=== PATIENT | male | born 1940 | race Caucasian/White ===

== ENCOUNTER 2019-08-24 10:48 | Outpatient (CLI) | payer MEDICARE, SELFPAY ==
--- NOTE | 2019-08-24 | XRR_ITS ---
PROCEDURE INFORMATION: Exam: XR Right Shoulder Exam date and time: 08/24/2019 12:16 PM Age: 78 years old Clinical indication: Injury or trauma; Initial encounter; Blunt trauma (contusions or hematomas; Right; Patient HX: C/O R shoulder pain after fall yesterday TECHNIQUE: Imaging protocol: XR Right shoulder. Views: 2 or more views. COMPARISON: No relevant prior studies available. FINDINGS: Bones/joints: Mild thoracic spondylosis. Mild dextroscoliosis. Possible humeral neck fracture noted only on the scapular Y-view. CT may be helpful if pain persist for confirmation. Possible fracture through the inferior blade of the scapula. Soft tissues: Normal. XR/XR shoulder RT min 2V* [id number] IMPRESSION: 1. Possible humeral neck fracture noted only on the scapular Y-view. CT may be helpful if pain persist for confirmation. 2. Possible fracture through the inferior blade of the scapula.
== END 2019-08-24 10:49 | disposition home or self-care (01) ==
PROVIDERS: Visit Provider Nurse Practitioner Family
DX: M79.601 Pain in right arm (principal); M25.511 Pain in right shoulder
CPT/HCPCS: 73030

== ENCOUNTER 2020-12-09 15:25 | Emergency (ER) | payer MEDICARE, SELFPAY ==
[2020-12-09 15:52] VITALS: BP 161/78; PULSE 75; RESP 18; TEMP 36.6; O2SAT 94; BMI 40.5
--- NOTE | 2020-12-09 16:50 | XRR_ITS ---
PROCEDURE INFORMATION: Exam: XR Left Shoulder Exam date and time: 12/09/2020 4:50 PM Age: 79 years old Clinical indication: Pain; Shoulder; Left; Additional info: Fall TECHNIQUE: Imaging protocol: XR Left shoulder. Views: 2 or more views. COMPARISON: No relevant prior studies available. FINDINGS: Bones/joints: Impacted angulated left humeral neck fracture. Displaced fracture of the greater tuberosity. Soft tissues: Normal. XR/XR shoulder LT min 2V* [id number] IMPRESSION: 1. Impacted angulated left humeral neck fracture. 2. Displaced fracture of the greater tuberosity.
--- NOTE | 2020-12-09 18:01 | ED_ITS ---
HPI - Fall General: Chief Complaint: Fall Stated Complaint: LEFT SHOULDER PAIN FROM FALL Time Seen by Provider: 12/09/20 18:01 History of Present Illness: HPI Narrative: Patient is an 79-year-old female comes to the ED with left shoulder pain after fall. Patient says fall occurred around noon today. She says she tripped over a furnace event causing her to fall and landed on her left shoulder. Denies any head injury or loss of consciousness. Denies any headache or neuro symptoms. Patient says she took her tramadol for pain around 1 PM. Associated symptoms-after fall: Denies abdominal pain, chest pain, headache(s), hematuria or neck pain Review of Systems Const: Denies: fever(s), chills or fatigue Eyes: Denies: change in vision or eye discomfort ENMT: Denies: throat pain, odynophagia, nasal discharge or nasal congestion Card: Denies: chest pain, palpitations, edema, swelling of feet/ankles, dyspnea on exertion or orthopnea Resp: Denies: dyspnea, productive cough or non-productive cough GI: Denies: abdominal pain, nausea, vomiting, diarrhea, constipation or hematochezia : Denies: flank pain, dysuria or hematuria Musc: Reports: joint pain (left shoulder pain); Denies: neck pain, back pain or extremity swelling Skin/Breast: Denies: rash or new lesions Neuro: Denies: headache(s), numbness in extremities or weakness in extremities [facility] ED PFSH: Social History Smoking and tobacco status: never smoked Alcohol intake: never Physical Exam Const: COMMON NORMALS: no acute distress, patient oriented x3 and alert GENERAL APPEARANCE: cooperative and comfortable HENMT: COMMON NORMALS: normocephalic HEAD & SCALP: normocephalic MOUTH: Normal oral and palatal mucosa present THROAT: posterior oropharynx normal and uvula midline Neck/C-Spine: COMMON NORMALS: supple GENERAL: Yes normal visual inspection Resp: COMMON NORMALS: normal respiratory effort, No retractions, No use of accessory muscles and clear to auscultation bilaterally AUSCULTATION: clear to auscultation bilaterally Cardio: COMMON NORMALS: regular rate, regular rhythm, S1 normal heart sound present, S2 normal heart sound present, No gallops present (Cardio), No clicks present (Cardio), No murmurs present (Cardio) and Peripheral pulses 2+ throughout RATE: regular rate RHYTHM: regular rhythm HEART SOUNDS: S1 normal heart sound present and S2 normal heart sound present PERIPHERAL PULSES: Peripheral pulses 2+ throughout GI: COMMON NORMALS: Normal to inspection, nondistended, normoactive bowel sounds present, Soft to palpation, non-tender and no masses PALPATION: Yes Soft to palpation : COMMON NORMALS: Yes no CVA tenderness BLADDER/KIDNEY EXAM: Yes no CVA tenderness Back/Pelvis: COMMON NORMALS: no CVA tenderness Extremity: LEFT UPPER EXTREMITY: Yes shoulder joint Left shoulder joint: Yes inspection (No visible deformity seen.), Yes palpation (Tenderness at the humeral head), Yes ROM (Limited due to pain) and Yes neurovascular exam (Intact) Neuro: COMMON NORMALS: patient oriented x3 and moves all extremities SENSORIUM/ORIENTATION: Yes alert Skin: GENERAL SKIN EXAM: dry skin Course Vital Signs: Vital signs: Vital Signs Temperature 97.8 F 12/09/20 15:52 Pulse Rate 74 12/09/20 18:02 Respiratory Rate 18 12/09/20 18:02 Blood Pressure 162/91 12/09/20 18:02 Pulse Oximetry 95 12/09/20 18:02 MDM - Fall MDM Narrative: Medical decision making narrative: Patient is a 79-year-old female comes to the ED with left shoulder pain after fall. Patient cannot abduct left arm due to pain. Tenderness in the humeral head of left arm. She is neurovascular intact distally in the left arm. X-ray of left arm shows a left humeral neck fracture and a displaced fracture of the greater tuberosity. Patient was placed in shoulder immobilizer and I placed order with case management for patient to be referred to orthopedic doctor for further evaluati on. Patient was discharged home with a prescription for hydrocodone. Patient understood agree with plan. Imaging Data^: Xray Ortho: Attestation: I personally reviewed and interpreted this imaging study as follows: Radiologist's impression: [address] [address] XRay Report Signed Patient: Doris Arguello Unit #: [id number] : 1940 Acct#:[id number] Age/Sex: 79 / F ADM Date: 12/09/20 Loc: ER Room/Bed: Attending Dr: Ordering Provider/Ordering MD: Colette Ivory Sr, COAGULATING DRYING SUPERVISOR- Date of Service: 12/09/20 Procedure(s): XR shoulder LT min 2V* [id number] Accession Number(s): [id number] Report Number: [id number] PROCEDURE INFORMATION: Exam: XR Left Shoulder Exam date and time: 12/09/2020 4:50 PM Age: 79 years old Clinical indication: Pain; Shoulder; Left; Additional info: Fall TECHNIQUE: Imaging protocol: XR Left shoulder. Views: 2 or more views. COMPARISON: No relevant prior studies available. FINDINGS: Bones/joints: Impacted angulated left humeral neck fracture. Displaced fracture of the greater tuberosity. Soft tissues: Normal. XR/XR shoulder LT min 2V* [id number] IMPRESSION: 1. Impacted angulated left humeral neck fracture. 2. Displaced fracture of the greater tuberosity. Dictated By: Devin Belle MD Signed By: Devin Belle MD Signed Date/Time: 12/09/20 184 DD/ 183 Discharge Plan Discharge Patient Disposition: Home Clinical Impression: Fracture of neck of left humerus Qualifiers: Encounter type: initial encounter Fracture type: closed Qualified Code(s): S42.212A - Unspecified displaced fracture of surgical neck of left humerus, initial encounter for closed fracture Fracture of greater tuberosity of humerus Qualifiers: Encounter type: initial encounter Fracture type: closed Fracture alignment: displaced Laterality: left Qualified Code(s): S42.252A - Displaced fracture of greater tuberosity of left humerus, initial encounter for closed fracture Condition: Stable Prescriptions: No Action atorvastatin 20 mg tablet 20 mg PO DAILY RF: 0 trazodone 50 mg tablet 50 - 100 mg PO BEDTIME RF: 0 Zyrtec 10 mg Tablet 10 mg PO DAILY PRN (Reason: Allergy Symptoms) RF: 0 metoprolol succinate 100 mg tablet extended release 24 hr 100 mg PO DAILY RF: 0 amlodipine 2.5 mg tablet 2.5 mg PO TID RF: 0 lorazepam 0.5 mg tablet 0.5 - 1 mg PO QID PRN (Reason: Anxiety) RF: 0 irbesartan-hydrochlorothiazide 300-12.5 mg tablet 1 tab PO DAILY RF: 0 Vitamin C 100 mg Tablet 100 mg PO DAILY RF: 0 allopurinol 300 mg tablet 300 mg PO DAILY RF: 0 zinc 50 mg Tablet 50 mg PO DAILY RF: 0 Fetzima 20 mg capsule,extended release 24 hr 20 mg PO DAILY RF: 0 Vitamin D3 1 tab PO DAILY RF: 0 Discharge Orders: Discharge ED (Routine); Ordered 12/09/20 Ordered By: Leonid Vega Referrals: Tang,CLEMENTE Jeffrey [Primary Care Provider] - Discharge Diet: Regular Discharge Activity: Limit activity as instructed Patient Instructions: Arm Fracture in Adults (ED), Opioid Safety Activity Restrictions/Additional Instructions: Follow-up with medical provider as directed. Case management will be contacting you in the next several days to set up an appoint with orthopedic doctor. Keep arm in a shoulder immobilizer and limit activity with left arm. Take medications as prescribed. Return to the ER or your medical provider if condition worsens. Please read and understand discharge instructions. Thank you for choosing [facility] for your healthcare needs today. Please realize this is an emergency room and that we are providing you with a medical screening exam and this may not be complete and all inclusive of all the testing and or work up that you may need to determine your ailment or severity of your illness. It is very important that you follow up as instructed or that you return to the Emergency Department should you have concerns or if your condition changes or worsens in any way. Coding Level of Care Code ED [place] for Margarita Gottlieb Exam Comprehensive
[2020-12-09 18:02] VITALS: BP 162/91; PULSE 74; RESP 18; O2SAT 95
[2020-12-09] MEDS: HYDROcodone-acetaminophen 5-325 mg Tablet 1 TAB PO (18:27)
--- NOTE | 2020-12-18 14:13 | DCPLANNER ---
services account manager had message to schedule a follow up appointment for patient with ortho. A referral was made to ortho, an appointment is scheduled for December at 11:[address] Bravo. Clinic will call patient with appointment information.
--- NOTE | 2021-01-01 08:49 | DCPLANNER ---
Patient had a follow up appointment scheduled for 12.24.20 with ortho - patient did attend appointment.
== END 2020-12-09 19:35 | disposition home or self-care (01) ==
PROVIDERS: Emergency Provider Physician Assistant; PCP Nurse Practitioner Family
DX: S42.212A Unspecified displaced fracture of surgical neck of left humerus, initial encounter for closed fracture (principal); S42.252A Displaced fracture of greater tuberosity of left humerus, initial encounter for closed fracture; W18.09XA Striking against other object with subsequent fall, initial encounter
CPT/HCPCS: 29240; 73030; 99283

== ENCOUNTER → 2021-01-21 09:43 | Outpatient (BNVA) | payer MEDICARE, SELFPAY | PROVIDERS: PCP Nurse Practitioner Family; Visit Provider Orthopaedic Surgery | DX: S42.202A Unspecified fracture of upper end of left humerus, initial encounter for closed fracture (principal); X58.XXXA Exposure to other specified factors, initial encounter | CPT/HCPCS: 73030 ==

== ENCOUNTER 2021-04-11 11:05 | Emergency (ER) | payer MEDICARE, SELFPAY ==
[2021-04-11 11:36] VITALS: BP 163/93; PULSE 106; RESP 18; TEMP 37.3; O2SAT 93; BMI 40.7
--- NOTE | 2021-04-11 11:54 | W.ED.GENADLT ---
HPI - General Adult General: Chief complaint: General Medical Stated complaint: CONGESTION AND THROWING UP Time Seen by Provider: 04/11/21 11:54 History of Present Illness: HPI narrative: Ms. Arguello is an 80-year-old lady with history of hypertension and hyperlipidemia presents the emergency department due to cough and vomiting. Symptoms have been going on for approximately 1 week and were subacute in onset. She initially endorses chest congestion with mild cough. Cough has been worsening and she has coughing fits to the point of emesis. She otherwise denies signs of systemic illness. She saw her PCP and had mild improvement with Keflex however is now worsening again. No other specific exacerbating or relieving factors identified. Review of Systems General: Reports: 10 or more systems reviewed and unremarkable except in HPI and below PFSH ED PFSH: Medical History (Updated 04/15/21 @ 20:33 by David Low MD) COVID-19 HLD (hyperlipidemia) HTN (hypertension) Surgical History (Updated 04/15/21 @ 20:33 by David Low MD) No significant past surgical history Social History Alcohol intake: never Physical Exam Narrative: EXAM NARRATIVE: GENERAL/CONSTITUTIONAL - well-appearing. Eyes - PERRL, no conjunctival injection ENMT - Atraumatic external nose and ears. Moist mucous membranes NECK - supple. trachea midline CARDIOVASCULAR - regular rate and rhythm. No peripheral edema RESPIRATORY -clear to auscultation bilaterally. ABDOMEN/GI - Nontender/Nondistended. MSK - Extremities without obvious deformity or tenderness to palpation SKIN - Warm, Dry NEURO - alert and appropriately oriented. Moves all extremities equally. Course ED course: - Patient was seen and evaluated by me at bedside - Patient placed on cardiac monitors, IV access obtained - Initial evaluation notable for exam as above - Given age/clinical exam and history, and persistence of symptoms despite outpatient therapy labs and imaging are warranted. - Labs notable for no leukocytosis. Mild evidence of dehydration without other significant metabolic abnormality noted on chemistry panel. Covid positive. - Imaging notable for no acute findings - Upon serial reexamination after treatment the patient was similar - Based on patient history, evaluation, labs, and imaging as interpreted the most likely cause of the patient's condition is COVID-19 - The results of ED evaluation were discussed with the patient including symptomatic cares (if applicable) including appropriate and responsible use, followup plan, and return precautions. The patient verbalized understanding and felt safe for discharge. - Patient discharged in satisfactory condition. Vital Signs: Vital signs: Vital Signs Temperature 99.2 F 04/11/21 11:36 Pulse Rate 96 04/11/21 14:21 Respiratory Rate 16 04/11/21 14:21 Blood Pressure 163/93 04/11/21 11:36 Pulse Oximetry 93 04/11/21 14:21 MDM - General Adult MDM Narrative: Medical decision making narrative: Overall nontoxic-appearing. 1 week of symptoms. Explanation for failure antibiotics is likely secondary to COVID-19 etiology of symptoms. No new oxygen requirement. Safe for discharge. Medical Records: Attestation: I reviewed the patient's medical records. Lab Data: Attestation: I reviewed the patient's lab results. Labs: Lab Results 04/11/21 04/11/21 04/11/21 12:38 12:38 12:38 WBC 5.4 10^3/uL 10^3/ uL (4.0-10.0) RBC 5.08 10^6/uL 10^6 /uL (4.1-5.3) Hgb 14.6 g/dL g/dL (11.5-15.3) Hct 42.9 % % (37.0-47.0) MCV 84.4 fl fl (81-99) MCH 28.7 pg pg (28.0-34.0) MCHC 34.0 g/dL g/dL (30.0-36.0) RDW 13.9 % % (12.1-15.1) Plt Count 162 10^3/cmm 10^3 /cmm (130-400) MPV 10.5 fL H fL (7.4-10.4) Neut % (Auto) 69.9 % % Lymph % (Auto) 16.4 % % [place] % (Auto) 13.1 % % Eos % (Auto) 0.0 % % Baso % (Auto) 0.2 % % Neut # (Auto) 3.81 10^3/uL 10^3 /uL (1.8-7.7) Lymph # (Auto) 0.9 10^3/uL 10^3/ uL (0.8-4.8) [place] # (Auto) 0.7 10^3/uL 10^3/ uL (0.2-0.9) Eos # (Auto) 0.0 10^3/uL 10^3/ uL (0.0-0.8) Baso # (Auto) 0.0 10^3/uL 10^3/ uL (0.0-0.1) Nucleated RBC % (a uto) 0 % % Nucleated RBCs # 0.0 /100WBC /100W BC Sodium 133 mmol/L L mmol /L (136-145) Potassium 3.7 mmol/L mmol/L (3.5-5.1) Chloride 98 mmol/L mmol/L (98-107) Carbon Dioxide 20 mmol/L L mmol/ L (22-29) Anion Gap 18.7 (5-19) BUN 14 mg/dL mg/dL (8-23) Creatinine 0.9 mg/dL mg/dL (0.5-0.9) GFR Calculation Not Reportable Glucose 212 mg/dL H mg/dL (65-115) Calculated Osmolal ity 283 mOsm/kg L mOs m/kg (285-295) Calcium 9.8 mg/dL mg/dL (8.5-10.5) Total Bilirubin 0.6 mg/dL mg/dL (0.15-1.2) AST 36 U/L H U/L (0-32) ALT 23 U/L U/L (0-33) Alkaline Phosphata se 80 IU/L IU/L (35-105) Total Protein 7.3 g/dL g/dL (6.6-8.7) Albumin 4.0 g/dL g/dL (3.5-5.2) Globulin 3.3 g/dL g/dL (1.3-4.6) SARS-CoV-2 Ag (Rap id) Positive H (Negative) Discharge Plan Discharge Patient Disposition: Home Clinical Impression: COVID-19, Cough, Post-tussive emesis, Dehydration, mild Condition: Stable Prescriptions: No Action atorvastatin 20 mg tablet 20 mg PO DAILY RF: 0 trazodone 50 mg tablet 50 - 100 mg PO BEDTIME RF: 0 cetirizine [Zyrtec] 10 mg Tablet 10 mg PO DAILY PRN (Reason: Allergy Symptoms) RF: 0 metoprolol succinate 100 mg tablet extended release 24 hr 100 mg PO DAILY RF: 0 amlodipine 2.5 mg tablet 2.5 mg PO TID RF: 0 lorazepam 0.5 mg tablet 0.5 - 1 mg PO QID PRN (Reason: Anxiety) RF: 0 irbesartan-hydrochlorothiazide 300-12.5 mg tablet 1 tab PO DAILY RF: 0 Vitamin C 100 mg Tablet 100 mg PO DAILY RF: 0 allopurinol 300 mg tablet 300 mg PO DAILY RF: 0 zinc 50 mg Tablet 50 mg PO DAILY RF: 0 Fetzima 20 mg capsule,extended release 24 hr 20 mg PO DAILY RF: 0 Vitamin D3 1 tab PO DAILY RF: 0 Discharge Orders: Discharge ED (Routine); Ordered 04/11/21 Ordered By: David Low Referrals: Rachele Tang APN [Primary Care Provider] - Discharge Diet: Usual diet Discharge Activity: Resume usual activity Patient Instructions: COVID-19 (Coronavirus Disease 2019) (ED) Activity Restrictions/Additional Instructions: Thank you for visiting the emergency department. You were seen and evaluated for cough and vomiting. Your symptoms are likely related to COVID-19. You will be given a medication for nausea, please ensure that you are staying hydrated. You will be referred for outpatient scheduling for monoclonal antibody infusion as discussed. Return to the emergency department for worsening symptoms or anything else that you are concerned about and feel needs emergency department evaluation. Coding Level of Care Code ED Training And Development Officer for Margarita Gottlieb
--- NOTE | 2021-04-11 12:09 | XRR_ITS ---
PROCEDURE INFORMATION: Exam: XR Chest Exam date and time: 04/11/2021 12:09 PM Age: 80 years old Clinical indication: Cough TECHNIQUE: Imaging protocol: XR of the chest. Views: 1 view. COMPARISON: CR XR shoulder LT min 2V* [id number] 01/21/2021 9:50 AM FINDINGS: Lungs: Unremarkable. No consolidation. Pleural spaces: Unremarkable. No pleural effusion. No pneumothorax. Heart/Mediastinum: Unremarkable. No cardiomegaly. Bones/joints: Unremarkable. XR/XR chest 1V portable [id number] IMPRESSION: No acute findings.
[2021-04-11 12:46] LABS: Basophils % 0.2 %; Hematocrit 42.9 % (37.0-47.0); Hemoglobin 14.6 g/dL (11.5-15.3); Lymphocytes # 0.9 10^3/uL (0.8-4.8); Lymphocytes % 16.4 %; Mean Corpuscular Hemoglobin 28.7 pg (28.0-34.0); Mean Corpuscular Volume 84.4 fl (81-99); Mean Platelet Volume 10.5 fL (7.4-10.4); Monocytes # 0.7 10^3/uL (0.2-0.9); Monocytes % 13.1 %; Neutrophils # 3.81 10^3/uL (1.8-7.7); Neutrophils % 69.9 %; Nucleated Red Blood Cells % 0 %; Platelet Count 162 10^3/cmm (130-400); Red Blood Count 5.08 10^6/uL (4.1-5.3); Red Cell Distribution Width 13.9 % (12.1-15.1); White Blood Count 5.4 10^3/uL (4.0-10.0)
[2021-04-11 13:11] LABS: Alanine Aminotransferase 23 U/L (0-33); Alkaline Phosphatase 80 IU/L (35-105); Anion Gap 18.7 (5-19); Aspartate Amino Transferase 36 U/L (0-32); Blood Urea Nitrogen 14 mg/dL (8-23); Calcium 9.8 mg/dL (8.5-10.5); Carbon Dioxide 20 mmol/L (22-29); Chloride 98 mmol/L (98-107); Globulin 3.3 g/dL (1.3-4.6); Glucose 212 mg/dL (65-115); Osmolality Calculated 283 mOsm/kg (285-295); Potassium 3.7 mmol/L (3.5-5.1); Sodium 133 mmol/L (136-145); Total Bilirubin 0.6 mg/dL (0.15-1.2); Total Protein 7.3 g/dL (6.6-8.7)
[2021-04-11 13:30] LABS: SARS Covid-2 Antigen Positive (Negative)
[2021-04-11 14:21] VITALS: PULSE 96; RESP 16; O2SAT 93
== END 2021-04-11 14:23 | disposition home or self-care (01) ==
PROVIDERS: Emergency Provider Emergency Medicine; PCP Nurse Practitioner Family
DX: U07.1 COVID-19 (principal); R05.9 Cough, unspecified; R11.10 Vomiting, unspecified; E86.0 Dehydration; E78.5 Hyperlipidemia, unspecified; I10 Essential (primary) hypertension
CPT/HCPCS: 71045; 80053; 85025; 87426; 99281

== ENCOUNTER 2021-04-25 12:46 | Inpatient (IN) | payer MEDICARE, SELFPAY ==
[2021-04-25] VITALS (8 sets, daily range): BP systolic 113–186; BP diastolic 73–128; PULSE 94–115; RESP 25–34; TEMP 36.6; O2SAT 91–94; BMI 46.0
--- NOTE | 2021-04-25 12:56 | CTR_ITS ---
PROCEDURE INFORMATION: Exam: CT Head Without Contrast Exam date and time: 04/25/2021 12:56 PM Age: 80 years old Clinical indication: Blunt trauma without loss of consciousness. Multiple recent falls. TECHNIQUE: Imaging protocol: Computed tomography of the head without contrast. Radiation optimization: All CT scans at this facility use at least one of these dose optimization techniques: automated exposure control; mA and/or kV adjustment per patient size (includes targeted exams where dose is matched to clinical indication); or iterative reconstruction. COMPARISON: No relevant prior studies available. RADIATION DOSE METRICS: Total DLP (mGy-cm): 998.58 FINDINGS: Brain: No acute intracranial hemorrhage. No mass, mass effect or midline shift. There is no evidence of acute large vessel infarct. There is moderate patchy subcortical and periventricular hypodensity, most commonly associated with small vessel ischemic disease of indeterminate age. 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 The posterior fossa is grossly unremarkable; however, it is partially obscurred by beam hardening artifact. Cerebral ventricles: The ventricles are prominent, compatible with moderate parenchymal volume loss. Paranasal sinuses: The visualized paranasal sinuses are clear. Mastoid air cells: No mastoid effusion. Orbital cavity: The visualized orbits are unremarkable. Bones/joints: No acute fracture is seen. CT/CT head wo con* [id number] IMPRESSION: 1. 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 2. Moderate senescent changes as above. 3. No acute intracranial hemorrhage.
--- NOTE | 2021-04-25 12:56 | XRR_ITS ---
PROCEDURE INFORMATION: Exam: XR Chest Exam date and time: 04/25/2021 12:56 PM Age: 80 years old Clinical indication: Shortness of breath TECHNIQUE: Imaging protocol: XR of the chest. Views: 1 view. COMPARISON: CR (CHEST, ) 04/11/2021 12:43 PM FINDINGS: Lungs: There are patchy hazy interstitial pulmonary infiltrates. This could be due to an interstitial pneumonia. Pleural spaces: Unremarkable. No pleural effusion. No pneumothorax. Heart/Mediastinum: Unremarkable. No cardiomegaly. Bones/joints: Unremarkable. XR/XR chest 1V portable [id number] IMPRESSION: Bilateral patchy hazy interstitial infiltrates suspicious for viral pneumonia.
--- NOTE | 2021-04-25 12:58 | ECG_ITS ---
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
--- NOTE | 2021-04-25 12:58 | CTR_ITS ---
PROCEDURE INFORMATION: Exam: CTA Chest With Contrast Exam date and time: 04/25/2021 12:58 PM Age: 80 years old Clinical indication: Shortness of breath. Recent post COVID 19. TECHNIQUE: Imaging protocol: Computed tomographic angiography of the chest with contrast. 3D rendering (Not supervised by radiologist): MIP and/or 3D reconstructed images were created by the technologist. Radiation optimization: All CT scans at this facility use at least one of these dose optimization techniques: automated exposure control; mA and/or kV adjustment per patient size (includes targeted exams where dose is matched to clinical indication); or iterative reconstruction. Contrast material: VISI 320; Contrast volume: 65 ml; Contrast route: INTRAVENOUS (IV); COMPARISON: CR (CHEST, ) 04/25/2021 1:09 PM RADIATION DOSE METRICS: Total DLP (mGy-cm): 534.79 FINDINGS: Pulmonary arteries: There is a saddle pulmonary embolus with extensive pulmonary emboli bilaterally. Aorta: No thoracic aortic aneurysm. No thoracic aortic dissection is seen. Lungs: There are ground-glass and airspace opacities bilaterally.These imaging findings are commonly reported imaging features of COVID 19 pneumonia. Other processes such as Influenza pneumonia and organizing pneumonia (as can be seen with connective tissue disease and drug toxicity) can cause a similar imaging pattern. No pulmonary mass. Pleural spaces: No pleural effusion. No pneumothorax. Heart: No pericardial effusion. Coronary arterial calcifications are seen. Heart RV/LV ratio: The RV to LV ratio is 2.2. Lymph nodes: No significant mediastinal lymphadenopathy. Diaphragm: Small hiatal hernia. Liver: The liver is enlarged measuring at least 19.8 cm. 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 Bones/joints: Old right-sided rib fractures are noted. There are intra-articular bodies in the right glenohumeral joint. CT/CT angio chest PE protcl [id number] IMPRESSION: 1. Saddle pulmonary embolus with extensive pulmonary emboli bilaterally and right heart strain. 2. There are ground-glass and airspace opacities bilaterally.These imaging findings are commonly reported imaging features of COVID 19 pneumonia. Other processes such as Influenza pneumonia and organizing pneumonia (as can be seen with connective tissue disease and drug toxicity) can cause a similar imaging pattern. 3. 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 4. Coronary artery disease. 5. Hepatomegaly.
--- NOTE | 2021-04-25 13:18 | W.ED.AMS ---
Documented by User: Yoni Bucio MD 04/25/21 17:49 HPI - Altered Mental Status General: Chief Complaint: Altered Mental Status Stated Complaint: AMS; MULT FALLS Time Seen by Provider: 04/25/21 12:53 History of Present Illness: HPI narrative: Patient is brought in by EMS with concerns for multiple falls and altered mental status. Patient was recently diagnosed with COVID, and states that she has been falling recently. States she woke up on the floor and had to call family member to come help her get up. States that later she woke up on the living room floor and again had to have help getting up. The patient endorses some mild shortness of breath. Denies any pain. Review of Systems Const: Denies: fever(s) or body aches Eyes: Denies: change in vision or blurry vision ENMT: Denies: throat pain or odynophagia Card: Denies: chest pain or palpitations Resp: Reports: dyspnea; Denies: productive cough GI: Denies: abdominal pain, nausea or vomiting : Denies: flank pain or dysuria Musc: Denies: neck pain or back pain Skin/Breast: Denies: rash or pruritus Neuro: Denies: headache(s) or numbness in extremities Psych: Denies: anxiety or change in appetite Endo: Denies: polyuria or excessive sweating PFSH ED PFSH: Medical History (Updated 04/25/21 @ 20:02 by Gabriela Flor MD) COVID-19 HLD (hyperlipidemia) HTN (hypertension) Surgical History (Updated 04/15/21 @ 20:33 by David Low MD) No significant past surgical history Social History Alcohol intake: never Physical Exam Const: COMMON NORMALS: no acute distress, healthy appearing and alert ORIENTATION/CONSCIOUSNESS: Yes oriented to person and Yes oriented to place HENMT: COMMON NORMALS: normocephalic and atraumatic HEAD & SCALP: normocephalic and atraumatic Eye: COMMON NORMALS: Equal, round and reactive pupils present and EOMs intact bilaterally PUPIL: Yes Equal, round and reactive pupils present Neck/C-Spine: COMMON NORMALS: full ROM and supple Resp: COMMON NORMALS: normal respiratory effort, No retractions and No use of accessory muscles Cardio: COMMON NORMALS: regular rhythm RATE: tachycardic RHYTHM: regular rhythm GI: COMMON NORMALS: Normal to inspection, nondistended, normoactive bowel sounds present, Soft to palpation and non-tender PALPATION: Yes Soft to palpation Back/Pelvis: COMMON NORMALS: thoracic and lumbar spine normal to inspection and no thoracic nor lumbar tenderness Extremity: COMMON NORMALS: normal to inspection and full ROM Neuro: SENSORIUM/ORIENTATION: Yes alert, Yes oriented to person and Yes oriented to place Psych: COMMON NORMALS: mental status grossly normal and cooperative Skin: COMMON NORMALS: no rashes or lesions noted and no wounds GENERAL SKIN EXAM: no rashes or lesions noted Course Vital Signs: Vital signs: Vital Signs Temperature 97.8 F 04/25/21 12:53 Pulse Rate 98 04/25/21 17:05 Respiratory Rate 30 H 04/25/21 17:05 Blood Pressure 116/97 04/25/21 17:05 Pulse Oximetry 92 04/25/21 17:05 MDM - Altered Mental Status MDM Narrative: Medical decision making narrative: Patient is brought in by EMS with concerns for multiple falls and altered mental status. Patient was recently diagnosed with COVID, and states that she has been falling recently. States she woke up on the floor and had to call family member to come help her get up. States that later she woke up on the living room floor and again had to have help getting up. The patient endorses some mild shortness of breath. Denies any pain. On physical exam the patient is alert. She knows who she is. She gets the date and the location wrong. She does appear to be somewhat confused. She states she does not wear supplemental oxygen normally, however here she is requiring supplemental oxygen to maintain her saturations above 90%. Will check labs, EKG, CT, x-ray, give IV fluids, and reassess. On reassessment I talked to the patient and her family about the test results. We will start her on a heparin bolus and drip for her saddle pulmonary embolus. I discussed the case with the hospitalist and they recommend transfer to another facility given the severity of her pulmonary embolus. We will begin the process of trying to find a place to transfer the patient. Will sign out to the oncoming physician. Lab Data: Labs: Lab Results 04/25/21 04/25/21 04/25/21 13:47 13:56 13:56 WBC 23.6 10^3/uL H 10 ^3/uL (4.0-10.0) RBC 5.26 10^6/uL 10^6 /uL (4.1-5.3) Hgb 15.2 g/dL g/dL (11.5-15.3) Hct 45.2 % % (37.0-47.0) MCV 85.9 fl fl (81-99) MCH 28.9 pg pg (28.0-34.0) MCHC 33.6 g/dL g/dL (30.0-36.0) RDW 14.1 % % (12.1-15.1) Plt Count 190 10^3/cmm 10^3 /cmm (130-400) MPV 11.1 fL H fL (7.4-10.4) Neut % (Auto) 90.6 % % Lymph % (Auto) 2.4 % % [place] % (Auto) 5.7 % % Eos % (Auto) 0.0 % % Baso % (Auto) 0.2 % % Neut # (Auto) 21.42 10^3/uL H 1 0^3/uL (1.8-7.7) Lymph # (Auto) 0.6 10^3/uL L 10^ 3/uL (0.8-4.8) [place] # (Auto) 1.4 10^3/uL H 10^ 3/uL (0.2-0.9) Eos # (Auto) 0.0 10^3/uL 10^3/ uL (0.0-0.8) Baso # (Auto) 0.1 10^3/uL 10^3/ uL (0.0-0.1) Nucleated RBC % (a uto) 0 % % Nucleated RBCs # 0.0 /100WBC /100W BC Sodium 125 mmol/L L mmol /L (136-145) Potassium 5.1 mmol/L mmol/L (3.5-5.1) Chloride 88 mmol/L L mmol/ L (98-107) Carbon Dioxide 17 mmol/L L mmol/ L (22-29) Anion Gap 25.1 H (5-19) BUN 59 mg/dL H mg/dL (8-23) Creatinine 1.4 mg/dL H mg/dL (0.5-0.9) GFR Calculation Not Reportable Glucose 742 mg/dL H* mg/d L (65-115) POC Glucose Calculated Osmolal ity 312 mOsm/kg H mOs m/kg (285-295) Calcium 11.3 mg/dL H mg/d L (8.5-10.5) Magnesium 2.7 mg/dL H mg/dL (1.7-2.3) Total Bilirubin 1.2 mg/dL mg/dL (0.15-1.2) AST 18 U/L U/L (0-32) ALT 25 U/L U/L (0-33) Alkaline Phosphata se 86 IU/L IU/L (35-105) Total Protein 6.2 g/dL L g/dL (6.6-8.7) Albumin 3.7 g/dL g/dL (3.5-5.2) Globulin 2.5 g/dL g/dL (1.3-4.6) Urine Color Yellow (Yellow) Urine Appearance Clear (CLEAR) Urine pH 5 (5-7) Ur Specific Gravit y 1.020 (1.005-1.030) Urine Protein Neg (Negative) Urine Glucose (UA) 4+ H (Normal) Urine Ketones Negative (Negative) Urine Blood Neg (Negative) Urine Nitrate Negative (Negative) Urine Bilirubin Neg (Negative) Urine Urobilinogen Norm mg/dL mg/dL (Negative) Ur Leukocyte Leslie ase Negative (Negative) 04/25/21 04/25/21 15:45 17:18 WBC RBC Hgb Hct MCV MCH MCHC RDW Plt Count MPV Neut % (Auto) Lymph % (Auto) [place] % (Auto) Eos % (Auto) Baso % (Auto) Neut # (Auto) Lymph # (Auto) [place] # (Auto) Eos # (Auto) Baso # (Auto) Nucleated RBC % (a uto) Nucleated RBCs # Sodium Potassium Chloride Carbon Dioxide Anion Gap BUN Creatinine GFR Calculation Glucose POC Glucose > 600 mg/dL H* mg /dL 577 mg/dL H* mg/d L (70-110) (70-110) Calculated Osmolal ity Calcium Magnesium Total Bilirubin AST ALT Alkaline Phosphata se Total Protein Albumin Globulin Urine Color Urine Appearance Urine pH Ur Specific Gravit y Urine Protein Urine Glucose (UA) Urine Ketones Urine Blood Urine Nitrate Urine Bilirubin Urine Urobilinogen Ur Leukocyte Leslie ase Critical Care Time Critical Care Time: Critical Care Time: Yes Total Critical Care Time: 35 Attestation: This case had a high probability of a clinically significant, sudden, or life threatening deterioration of this patient's condition which required my full and direct attention, intervention and personal management. Discharge Plan Discharge Patient Disposition: Admitted As Inpatient Clinical Impression: COVID-19 Pulmonary embolism Qualifiers: Pulmonary embolism type: unspecified Chronicity: acute Acute cor pulmonale presence: with acute cor pulmonale Qualified Code(s): I26.09 - Other pulmonary embolism with acute cor pulmonale Condition: Stable Coding Level of Care Code ED Vascular Technician for Chg Fwd Exam Comprehensive Documented by User: Gabriela Flor MD 04/25/21 20:04 HPI - Altered Mental Status General: Chief Complaint: Altered Mental Status Stated Complaint: AMS; MULT FALLS Time Seen by Provider: 04/25/21 12:53 [facility] ED PFSH: Medical History (Updated 04/25/21 @ 20:02 by Gabriela Flor MD) COVID-19 HLD (hyperlipidemia) HTN (hypertension) Surgical History (Updated 04/15/21 @ 20:33 by David Low MD) No significant past surgical history Social History Alcohol intake: never Course Vital Signs: Vital signs: Vital Signs Temperature 97.8 F 04/25/21 12:53 Pulse Rate 98 04/25/21 17:05 Respiratory Rate 30 H 04/25/21 17:05 Blood Pressure 116/97 04/25/21 17:05 Pulse Oximetry 92 04/25/21 17:05 MDM - Altered Mental Status MDM Narrative: Medical decision making narrative: Patient presents here with saddle pulmonary emboli patient has had normal blood pressures here have attempted for hours and called multiple facilities to transfer for possible thrombectomy. Not able to find any placement due to bed availability patient has been stable down here she is on a heparin drip spoke to hospitalist and will admit to the cardiac stepdown unit at this time. She does not require tPA. Lab Data: Labs: Lab Results 04/25/21 04/25/21 04/25/21 13:47 13:56 13:56 WBC 23.6 10^3/uL H 10 ^3/uL (4.0-10.0) RBC 5.26 10^6/uL 10^6 /uL (4.1-5.3) Hgb 15.2 g/dL g/dL (11.5-15.3) Hct 45.2 % % (37.0-47.0) MCV 85.9 fl fl (81-99) MCH 28.9 pg pg (28.0-34.0) MCHC 33.6 g/dL g/dL (30.0-36.0) RDW 14.1 % % (12.1-15.1) Plt Count 190 10^3/cmm 10^3 /cmm (130-400) MPV 11.1 fL H fL (7.4-10.4) Neut % (Auto) 90.6 % % Lymph % (Auto) 2.4 % % [place] % (Auto) 5.7 % % Eos % (Auto) 0.0 % % Baso % (Auto) 0.2 % % Neut # (Auto) 21.42 10^3/uL H 1 0^3/uL (1.8-7.7) Lymph # (Auto) 0.6 10^3/uL L 10^ 3/uL (0.8-4.8) [place] # (Auto) 1.4 10^3/uL H 10^ 3/uL (0.2-0.9) Eos # (Auto) 0.0 10^3/uL 10^3/ uL (0.0-0.8) Baso # (Auto) 0.1 10^3/uL 10^3/ uL (0.0-0.1) Nucleated RBC % (a uto) 0 % % Nucleated RBCs # 0.0 /100WBC /100W BC Sodium 125 mmol/L L mmol /L (136-145) Potassium 5.1 mmol/L mmol/L (3.5-5.1) Chloride 88 mmol/L L mmol/ L (98-107) Carbon Dioxide 17 mmol/L L mmol/ L (22-29) Anion Gap 25.1 H (5-19) BUN 59 mg/dL H mg/dL (8-23) Creatinine 1.4 mg/dL H mg/dL (0.5-0.9) GFR Calculation Not Reportable Glucose 742 mg/dL H* mg/d L (65-115) POC Glucose Calculated Osmolal ity 312 mOsm/kg H mOs m/kg (285-295) Calcium 11.3 mg/dL H mg/d L (8.5-10.5) Magnesium 2.7 mg/dL H mg/dL (1.7-2.3) Total Bilirubin 1.2 mg/dL mg/dL (0.15-1.2) AST 18 U/L U/L (0-32) ALT 25 U/L U/L (0-33) Alkaline Phosphata se 86 IU/L IU/L (35-105) Total Protein 6.2 g/dL L g/dL (6.6-8.7) Albumin 3.7 g/dL g/dL (3.5-5.2) Globulin 2.5 g/dL g/dL (1.3-4.6) Urine Color Yellow (Yellow) Urine Appearance Clear (CLEAR) Urine pH 5 (5-7) Ur Specific Gravit y 1.020 (1.005-1.030) Urine Protein Neg (Negative) Urine Glucose (UA) 4+ H (Normal) Urine Ketones Negative (Negative) Urine Blood Neg (Negative) Urine Nitrate Negative (Negative) Urine Bilirubin Neg (Negative) Urine Urobilinogen Norm mg/dL mg/dL (Negative) Ur Leukocyte Leslie ase Negative (Negative) 04/25/21 04/25/21 15:45 17:18 WBC RBC Hgb Hct MCV MCH MCHC RDW Plt Count MPV Neut % (Auto) Lymph % (Auto) [place] % (Auto) Eos % (Auto) Baso % (Auto) Neut # (Auto) Lymph # (Auto) [place] # (Auto) Eos # (Auto) Baso # (Auto) Nucleated RBC % (a uto) Nucleated RBCs # Sodium Potassium Chloride Carbon Dioxide Anion Gap BUN Creatinine GFR Calculation Glucose POC Glucose > 600 mg/dL H* mg /dL 577 mg/dL H* mg/d L (70-110) (70-110) Calculated Osmolal ity Calcium Magnesium Total Bilirubin AST ALT Alkaline Phosphata se Total Protein Albumin Globulin Urine Color Urine Appearance Urine pH Ur Specific Gravit y Urine Protein Urine Glucose (UA) Urine Ketones Urine Blood Urine Nitrate Urine Bilirubin Urine Urobilinogen Ur Leukocyte Leslie ase EKG Data^: EKG 1: Attestation: I personally reviewed and interpreted this EKG as follows: EKG interpretation date: 04/25/21 EKG interpretation time: 19:29 Interpretation: sinus tach hr 121 qrs 75 qtc 376 Discharge Plan Discharge Patient Disposition: Admitted As Inpatient Clinical Impression: COVID-19 Pulmonary embolism Qualifiers: Pulmonary embolism type: unspecified Chronicity: acute Acute cor pulmonale presence: with acute cor pulmonale Qualified Code(s): I26.09 - Other pulmonary embolism with acute cor pulmonale Condition: Stable Coding Level of Care Code ED Vascular Technician for Chg Fwd Exam Comprehensive
[2021-04-25 13:57] LABS: Add Urine Microscopic? NO; Charge for UA Resulting for Rev
[2021-04-25 14:02] LABS: Basophils # 0.1 10^3/uL (0.0-0.1); Basophils % 0.2 %; Hematocrit 45.2 % (37.0-47.0); Hemoglobin 15.2 g/dL (11.5-15.3); Lymphocytes # 0.6 10^3/uL (0.8-4.8); Lymphocytes % 2.4 %; Mean Corpuscular HGB Conc 33.6 g/dL (30.0-36.0); Mean Corpuscular Hemoglobin 28.9 pg (28.0-34.0); Mean Corpuscular Volume 85.9 fl (81-99); Mean Platelet Volume 11.1 fL (7.4-10.4); Monocytes # 1.4 10^3/uL (0.2-0.9); Monocytes % 5.7 %; Neutrophils # 21.42 10^3/uL (1.8-7.7); Neutrophils % 90.6 %; Nucleated Red Blood Cells % 0 %; Platelet Count 190 10^3/cmm (130-400); Red Blood Count 5.26 10^6/uL (4.1-5.3); Red Cell Distribution Width 14.1 % (12.1-15.1); White Blood Count 23.6 10^3/uL (4.0-10.0)
[2021-04-25] MEDS: sodium chloride 0.9% 1,000 ML 999 ML IV (14:04)
[2021-04-25 14:05] LABS: Bilirubin Urine Neg (Negative); Blood Urine Neg (Negative); Glucose Urine UA 4+ (Normal); Ketones Urine Negative (Negative); Leukocyte Esterase Urine Negative (Negative); Nitrate Urine Negative (Negative); Protein Urine Neg (Negative); Urine Appearance Clear (CLEAR); Urine Color Yellow (Yellow); Urobilinogen Urine Norm (Negative); pH Urine 5 (5-7)
[2021-04-25 14:23] LABS: Alanine Aminotransferase 25 U/L (0-33); Albumin Level 3.7 g/dL (3.5-5.2); Alkaline Phosphatase 86 IU/L (35-105); Anion Gap 25.1 (5-19); Aspartate Amino Transferase 18 U/L (0-32); Blood Urea Nitrogen 59 mg/dL (8-23); Calcium 11.3 mg/dL (8.5-10.5); Carbon Dioxide 17 mmol/L (22-29); Chloride 88 mmol/L (98-107); Globulin 2.5 g/dL (1.3-4.6); Magnesium 2.7 mg/dL (1.7-2.3); Osmolality Calculated 312 mOsm/kg (285-295); Potassium 5.1 mmol/L (3.5-5.1); Sodium 125 mmol/L (136-145); Total Bilirubin 1.2 mg/dL (0.15-1.2); Total Protein 6.2 g/dL (6.6-8.7)
[2021-04-25 14:28] LABS: Glucose 742 mg/dL (65-115)
[2021-04-25] MEDS: iodixanol 320 mg/mL 100mL Btl IV (14:30)
[2021-04-25] MEDS: heparin drip 25,000 UNIT/500 ML PREMIX 42.46 UNIT IV (15:45)
[2021-04-25] MEDS: insulin regular-human 100 units/1 mL 10 UNIT IVP (15:47)
[2021-04-25] MEDS: heparin 5,000 unit/mL INJ 1 mL 9360 UNIT IV (15:52)
[2021-04-25 16:00] LABS: Glucose Point of Care > 600 mg/dL (70-110)
[2021-04-25 17:22] LABS: Glucose Point of Care 577 mg/dL (70-110)
--- NOTE | 2021-04-25 19:14 | ECG_ITS ---
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
[2021-04-25 20:12] LABS: Troponin(5th) Baseline 61 ng/L (0-10)
[2021-04-25 20:21] LABS: NT Pro B Type Natriuretic Pept 1519 pg/mL (0-450)
--- NOTE | 2021-04-25 21:14 | ECG_ITS ---
[facility] Test Date: 2021-04-25 Pat Name: Doris Arguello Department: Room: Gender: Female Fiber Technician: : 1940 Requested By: Gabriela Flor Order Number: [id number] Reading MD: PRICE ACE Measurements Intervals [place] Rate: 127 P: 13 HI: 133 QRS: 49 QRSD: 73 T: 22 QT: 294 QTc: 429 Interpretive Statements SINUS TACHYCARDIA ABNORMAL RHYTHM ECG Compared to ECG 04/25/2021 19:29:30 No significant changes Electronically Signed On 04-26-2021 20:57:38 AIR TRAFFIC COORDINATOR by PRICE ACE [id number]
--- NOTE | 2021-04-25 22:05 | P.HP_ITS ---
Providers/Chief Complaint Admitting Physician: Zachary Mason Primary Care Provider: Rachele Tang APN Chief Complaint: AMS; MULT FALLS History of Present Illness 80 y/o with past medical history of hypertension, dyslipidemia, coronary artery disease, hepatomegaly and COVID-19 infection (04/11/21) who presented to ER after she sustained a fall and altered mental status. Patient lives at home alone. Nephew at bedside provided history. Stated at baseline patient does have mild confusion however this as progressively increased in the past 3 days. Noted 3 falls in this time where he found her laying next to her walker. Also noted her to have increasing respiratory distress particularly with exertion. She was seen on 04/11 by her PCP during which time she was diagnosed with COVID-19. She was started on steroids, levaquin and mucinex. Of note no prior history of diabetes mellitus. Upon arrival to ER her initial vital signs showed a temperature of 97.8, heart rate of 104, respiratory rate of 34 and a blood pressure 152/83.Laboratory workup showed a WBC of 23.6, hemoglobin of 15.2, hematocrit of 45.2 and a platelet count of 190.Sodium of 125, potassium 5.1, chloride 88, bicarb 17, BUN 59 and creatinine of 1.4. Glucose was elevated at 742. Anion gap of 25.1. Magnesium of 2.7. Delta Trop of -6.80, proBNP of 1519. Imaging: Chest x-ray: Bilateral patchy hazy interstitial infiltrates. Head CT: Lacunar infarcts within/adjacent to the basal ganglia, bilaterally, of indeterminate ag CTA Chest Saddle pulmonary embolus with extensive pulmonary emboli bilaterally and right heart strain and ground-glass and airspace opacities bilaterally. ER course: Patient was started on heparin drip for acute PE. Initial attempt at transfer to higher level of care for possible catherter directed intervention was unsuccessfull. Required 6L of o2 via NC. Patient remained Hemodynamically stable. Additionally started on insulin drip. Review of Systems General: Reports: ROS unobtainable due to medical condition and ROS unobtainable due to mental status Medications/Allergies Home Medications Medication Instructions Recorded Confirmed Last Taken Type Vitamin D3 1 tab PO DAILY 12/09/20 04/25/21 04/24/21 History allopurinol 300 mg PO DAILY 12/09/20 04/25/21 04/25/21 History amlodipine 2.5 mg PO TID 12/09/20 04/25/21 04/25/21 History ascorbic acid (vitamin C) [Vitamin 100 mg PO DAILY 12/09/20 04/25/21 04/24/21 History C] atorvastatin 20 mg PO DAILY 12/09/20 04/25/21 04/24/21 History cetirizine [Zyrtec] 10 mg PO DAILY PRN 12/09/20 04/25/21 04/10/21 History irbesartan-hydrochlorothiazide 1 tab PO DAILY 12/09/20 04/25/21 04/25/21 History levomilnacipran [Fetzima] 20 mg PO DAILY 12/09/20 04/25/21 04/25/21 History lorazepam 0.5 - 1 mg PO QID PRN 12/09/20 04/25/21 04/10/21 History metoprolol succinate 100 mg PO DAILY 12/09/20 04/25/21 04/25/21 History trazodone 50 - 100 mg PO BEDTIME 12/09/20 04/25/21 04/24/21 History zinc 50 mg PO DAILY 12/09/20 04/25/21 04/25/21 History cyanocobalamin (vitamin B-12) 1,000 mcg IM Q30D 04/25/21 04/25/21 Unknown History guaifenesin [Mucinex] 600 mg PO Q12H PRN 04/25/21 04/25/21 Unknown History levofloxacin [Levaquin] 500 mg PO BID MDD SEE PHARMACY 04/25/21 04/25/21 04/25/21 History COMMENT tramadol 50 mg PO BID PRN 04/25/21 04/25/21 Unknown History Allergies Allergy/AdvReac Type Severity Reaction Status Date / Time Penicillins Allergy ALGY-Swell Verified 04/12/21 11:36 Lip/Tongue/Throat PFSH Acute PFSH: Medical History (Updated 04/26/21 @ 03:31 by Zachary Mason MD) COVID-19 HLD (hyperlipidemia) HTN (hypertension) Surgical History (Updated 04/15/21 @ 20:33 by David Low MD) No significant past surgical history Social History Alcohol intake: never Vitals/I&O/Wt Last Vital Signs Temp 97.8 F 04/25/21 12:53 Pulse 102 H 04/25/21 20:59 Resp 30 H 04/25/21 20:59 BP 138/92 04/25/21 20:59 Pulse Ox 93 04/25/21 20:59 04/25/21 04/25/21 04/25/21 06:59 14:59 22:59 Intake Total 1000 / 1000 Balance 1000 / 1000 Weight last 48 hrs Weight 117.934 kg Physical Exam Narrative: EXAM NARRATIVE: General: Alert, awake however confused HEENT: Grossly unremarkable CVS: NSR Chest; Mildly labored respiration Abd: Soft, NT,ND Ext: No edema Data : 04/25/21 13:56 04/26/21 02:05 A&P Assessment and plan (1) Pulmonary embolism: Status: Acute Qualifiers: Acute cor pulmonale presence: with acute cor pulmonale Chronicity: acute Pulmonary embolism type: unspecified Qualified Code(s): I26.09 - Other pulmonary embolism with acute cor pulmonale (2) COVID-19: Status: Acute (3) HTN (hypertension): Status: Acute (4) HLD (hyperlipidemia): Status: Acute (5) Hyperosmolar hyperglycemic state (HHS): Status: Acute (6) Acute kidney injury: Status: Acute (7) AMS (altered mental status): Status: Acute Additional A&P Information Acute respiratory failure with hypoxia / Acute Saddle PE / COVID-19 Pneumonia COVID-19 dx on 04/11 CTA Chest- Saddle embolism with extensive B/L PE with RV strain Hemodynamically stable Continue heparin drip per protocol TTEcho in am Continue IVF cautiously given COVID-19 Will hold on further steroids given hyperglycemia Empirically started on Levaquin 750 mg IV - Renal dosing Follow upon cultures Continue supplemental 02 - currently 6L May consider pulmonary consult in am Droplet Precautions Leukocytosis Likely due to steroids possible infectious On IV abx as noted above Procalcitonin in am Repeat CBC in am Hyperglycemic Hyperosmolar syndrome ABG 7.4, Blood sugar > 700, mild serum ketone Check A1c in am Hold on further steroids Likely new-onset DM Insulin drip per protocol Q1hr BS checks BMP q4hr Will keep NPO for now Acute kidney injury Likely pre-renal Creatinine 1.3 IVF BMP in am Renal dosing 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 Critical Care Time: Critical Care Time (min): 55 Coding Level of Care Code Acute Cube Machine Tender for g Fwd Diagnoses Pulmonary embolism I26.09 Acute cor pulmonale presence: with acute cor pulmonale Chronicity: acute Pulmonary embolism type: unspecified COVID-19 U07.1 HTN (hypertension) I10 HLD (hyperlipidemia) E78.5 Hyperosmolar hyperglycemic state (HHS) E11.00; E11.65 Acute kidney injury N17.9 AMS (altered mental status) R41.82
[2021-04-25 22:12] LABS: Glucose Point of Care > 600 mg/dL (70-110)
[2021-04-25 22:12] LABS: Glucose Point of Care 576 mg/dL (70-110)
[2021-04-25 22:51] LABS: Ketone (Acetest) Serum Positive (Negative)
[2021-04-25 22:54] LABS: ABG PCO2 24.3 mmHg (35-45); ABG PH Result 7.47 (7.35-7.45); Arterial Blood Gas Hematocrit 43.3 % (37-47); Blood Gas Sample Site Brachial, right; Blood Gas Sample Type Arterial; HCO3 ABG 17.8 mmol/L (22-26); Oxygen Device NC; PO2 ABG 58.6 mmHg (80.0-100.0)
[2021-04-25 22:57] LABS: Alanine Aminotransferase 23 U/L (0-33); Albumin Level 3.4 g/dL (3.5-5.2); Alkaline Phosphatase 75 IU/L (35-105); Anion Gap 22.1 (5-19); Aspartate Amino Transferase 17 U/L (0-32); Blood Urea Nitrogen 60 mg/dL (8-23); Calcium 10.4 mg/dL (8.5-10.5); Carbon Dioxide 17 mmol/L (22-29); Chloride 97 mmol/L (98-107); Globulin 1.9 g/dL (1.3-4.6); Osmolality Calculated 317 mOsm/kg (285-295); Potassium 5.1 mmol/L (3.5-5.1); Sodium 131 mmol/L (136-145); Total Protein 5.3 g/dL (6.6-8.7)
[2021-04-25 22:58] LABS: Glucose 612 mg/dL (65-115)
[2021-04-25] MEDS: insulin regular-human 250 UNIT in sodium chloride 0.9% 250 ML 16.5 UNIT IV (23:26)
[2021-04-26] VITALS (71 sets, daily range): BP systolic 79–157; BP diastolic 54–97; PULSE 101–144; RESP 18–51; TEMP 36.7; O2SAT 83–96
[2021-04-26 00:38] LABS: Glucose Point of Care 567 mg/dL (70-110)
[2021-04-26 00:41] LABS: Partial Thromboplastin Time > 250.0 SECONDS (23.9-36.7)
--- NOTE | 2021-04-26 01:14 | ECG_ITS ---
[facility] Test Date: 2021-04-26 Pat Name: Doris Arguello Department: Room: 111 Gender: Female Artist Manager: : 1940 Requested By: Gabriela Flor Order Number: [id number] Reading MD: PRICE ACE Measurements Intervals [place] Rate: 132 P: 7 DE: 125 QRS: 36 QRSD: 73 T: 40 QT: 313 QTc: 465 Interpretive Statements SINUS TACHYCARDIA WITH OCCASIONAL SUPRAVENTRICULAR PREMATURE COMPLEXES NONSPECIFIC ST & T-WAVE ABNORMALITY ABNORMAL RHYTHM ECG Compared to ECG 04/25/2021 21:23:44 T-wave abnormality now present Electronically Signed On 04-26-2021 20:57:06 FOOD EDITOR by PRICE ACE [id number]
--- NOTE | 2021-04-26 01:26 | USCV_ITS ---
Doris Arguello Age: 80 Gender: F : 1940 Exam Date: 04/26/2021 08:08 Ordering Phys: Zachary Mason MD Technologist: JAMES Exam Location: [facility] [place] Indication: Saddle Pulmonary Embolus. Covid Positive. Delirious in ER-15. No hx cardiac intervention. f/u CT suggesting right heart strain. BP: 134 / 92 HR: 102 Rhythm: Sinus tachycardia Technical Quality: Adequate MEASUREMENTS (Male / Female) Normal Values 2D ECHO LV Diastolic Diameter PLAX 3.5 cm 4.2 - 5.9 / 3.9 - 5.3 cm LV Systolic Diameter PLAX 2.3 cm IVS Diastolic Thickness 1.6 cm 0.6 - 1.0 / 0.6 - 0.9 cm IVS Systolic Thickness 1.5 cm LVPW Diastolic Thickness 1.6 cm 0.6 - 1.0 / 0.6 - 0.9 cm LVPW Systolic Thickness 2.0 cm LVOT Diameter 1.8 cm LV Ejection Fraction 2D Teich 63.0 % LV Ejection Fraction MOD 2C 51.1 % LV Ejection Fraction 2C AL 48.0 % LA Diameter 3.0 cm LA Width 2.5 cm LA Height 3.9 cm RA Width 2.8 cm RA Height 4.0 cm Aorta at Sinotubular Diameter 2.8 cm M-MODE Aortic Annulus Diameter 2.8 cm LA Ao Ratio MM 1.1 MV E Point Septal Separation 0.4 cm DOPPLER AV Peak Velocity 144.0 cm/s LVOT Peak Velocity 190.0 cm/s AV Area Cont Eq vti 3.2 cm squared AV Area Cont Eq pk 3.4 cm squared MV Peak Velocity 97.0 cm/s MV Area PHT 3.0 cm squared Mitral E to A Ratio 0.4 MV E' Velocity 20.0 cm/s Mitral E to MV E' Ratio 4.9 Mitral E to LV E' Lateral Ratio 4.9 Mitral E to LV E' Septal Ratio 5.0 TR Peak Velocity 254.0 cm/s TR Peak Gradient 25.8 mmHg TV Peak E Velocity 39.0 cm/s Right Atrial Pressure 10.0 mmHg Pulmonary Artery Systolic Pressu 35.8 mmHg PV Peak Velocity 94.0 cm/s RV Acceleration Time 0.1 s RV Ejection Time 0.3 s RV AcT/ET 0.4 FINDINGS Left Ventricle Normal left ventricular size and systolic function, EF 56 %. No regional wall motion abnormalities. Right Ventricle Right ventricular appears to be of normal size and ejection fraction. Technically difficult because of poor ultrasonic window Right Atrium The right atrium is normal in size. Left Atrium The left atrium is normal in size. Mitral Valve No gross abnormalities noted . Aortic Valve No gross abnormalities noted Tricuspid Valve Mild tricuspid valve regurgitation. Pulmonic Valve Trace pulmonary valve regurgitation. Pericardium No pericardial effusion. Aorta Normal aortic root CONCLUSIONS Normal left ventricular size and systolic function, EF 56 %. No regional wall motion abnormalities. The right ventricle appears to be normal size and ejection fraction There is no definite features of right ventricular strain. Mild tricuspid valve regurgitation. Estimated pulmonary artery peak systolic pressure of 36 mmHg There is no pericardial effusion. No previous study is available for comparison. Technically difficult study because of the poor ultrasonic window Dr Steven Nolen MD FACC (Electronically Signed) Final Date: 26 April 2021 13:47 S
[2021-04-26] MEDS: levofloxacin-dextrose 5 % 750 MG/150 ML PREMIX 100 MG IV (02:18)
[2021-04-26 02:34] LABS: Troponin 5 6HR 66.42 ng/L (0-10); Troponin 5 6HR Delta 5.42 ng/L (0-12)
[2021-04-26 02:35] LABS: Blood Urea Nitrogen 68 mg/dL (8-23); Calcium 10.8 mg/dL (8.5-10.5); Carbon Dioxide 14 mmol/L (22-29); Chloride 101 mmol/L (98-107); Glucose 336 mg/dL (65-115); Osmolality Calculated 309 mOsm/kg (285-295); Sodium 133 mmol/L (136-145)
[2021-04-26 02:37] LABS: Anion Gap 22.5 (5-19); Potassium 4.5 mmol/L (3.5-5.1)
[2021-04-26 02:47] LABS: Partial Thromboplastin Time > 250.0 SECONDS (23.9-36.7)
[2021-04-26] MEDS: sodium chloride 0.9% 1,000 ML 75 ML IV (04:34)
[2021-04-26 04:50] LABS: Glucose Point of Care 357 mg/dL (70-110)
[2021-04-26 04:50] LABS: Glucose Point of Care 307 mg/dL (70-110)
[2021-04-26 04:50] LABS: Glucose Point of Care 268 mg/dL (70-110)
[2021-04-26 05:29] LABS: Partial Thromboplastin Time 124.6 SECONDS (23.9-36.7)
[2021-04-26 06:02] LABS: Glucose Point of Care 265 mg/dL (70-110)
[2021-04-26 07:03] LABS: Glucose Point of Care 307 mg/dL (70-110)
--- NOTE | 2021-04-26 07:09 | USCV_ITS ---
Doris Arguello Age: 80 Gender: F : 1940 Exam Date: 04/26/2021 07:31 Ordering Phys: Clifton Kim MD Technologist: JAMES Exam Location: [facility] [place] Indication: Saddle pulmonary embolus. HISTORY: Saddle pulmonary embolus. Covid Positive. Delirious in ER-15 PROCEDURES: The venous duplex Doppler examination of both lower extremities was performed in the standard fashion. The following venous structures were evaluated: common femoral vein, profunda vein, proximal portion of the greater saphenous vein, superficial femoral vein, and the popliteal vein. In addition, the posterior tibial veins were evaluated. FINDINGS: Normal 2-D Doppler and augmentation and compressibility throughout the lower extremity venous structures. Additional imaging through the proximal calf veins also reveals no thrombus. Limited evaluation of the greater saphenous vein is patent with no thrombus. CONCLUSIONS No DVT bilateral lower extremities. Dr. Yazmin Jaramillo DO (Electronically Signed) Final Date: 26 April 2021 10:44 S
[2021-04-26 08:23] LABS: Glucose Point of Care 241 mg/dL (70-110)
--- NOTE | 2021-04-26 08:23 | PC.NURSE ---
Per MD Kim Patient is to be started on Dextrose 5% 40 mEq KCL. Patient sugar now 241, per MD Kim patient Insulin to be titrated Q1 hour. Pt insulin drip to be set at 3.62.
[2021-04-26 09:04] LABS: Glucose Point of Care 219 mg/dL (70-110)
[2021-04-26] MEDS: dextrose 5%-ns + KCl 40 40 MEQ/1,000 ML BAG 75 MEQ IV ×2 (09:14→21:09)
[2021-04-26 09:39] LABS: Glucose Point of Care 217 mg/dL (70-110)
[2021-04-26 10:05] LABS: Estmated Average Glucose 246; Hemoglobin A1C 10.2 % (4.0-6.0)
[2021-04-26] MEDS: heparin drip 25,000 UNIT/500 ML PREMIX 35.38 UNIT IV (10:05)
[2021-04-26 10:06] LABS: Blood Urea Nitrogen 72 mg/dL (8-23); Calcium 9.7 mg/dL (8.5-10.5); Carbon Dioxide 16 mmol/L (22-29); Chloride 105 mmol/L (98-107); Glucose 183 mg/dL (65-115); Magnesium 2.4 mg/dL (1.7-2.3); Osmolality Calculated 308 mOsm/kg (285-295); Phosphorus 1.7 mg/dL (2.5-4.5); Sodium 136 mmol/L (136-145)
[2021-04-26] MEDS: pantoprazole 40 mg SDV IVP (10:12)
[2021-04-26 10:16] LABS: Anion Gap 19.1 (5-19)
[2021-04-26 10:17] LABS: Potassium 4.1 mmol/L (3.5-5.1)
[2021-04-26 11:10] LABS: Glucose Point of Care 270 mg/dL (70-110)
--- NOTE | 2021-04-26 12:03 | PC.NURSE ---
Pt assessed by RN, Pt has wound on her buttocks that is now bleeding, pt had already had BM. PT cleaned up but still having uncontrollable diarrhea. Dr. Kim consulted for further care, RN awaiting Dr. Barrow reply. Pt wound and uncontrollable diarrhea makes her at risk for infection.
--- NOTE | 2021-04-26 12:36 | PC.NURSE ---
Patient wounds on her buttocks dressed, clean and dry. Continue plan of care as before per MD Rm.
[2021-04-26 12:45] LABS: Blood Urea Nitrogen 75 mg/dL (8-23); Calcium 9.8 mg/dL (8.5-10.5); Carbon Dioxide 16 mmol/L (22-29); Chloride 104 mmol/L (98-107); Glucose 309 mg/dL (65-115); Osmolality Calculated 316 mOsm/kg (285-295); Sodium 136 mmol/L (136-145)
[2021-04-26 12:46] LABS: Anion Gap 20.8 (5-19); Magnesium 2.5 mg/dL (1.7-2.3); Potassium 4.8 mmol/L (3.5-5.1)
[2021-04-26 13:37] LABS: Glucose Point of Care 292 mg/dL (70-110)
--- NOTE | 2021-04-26 14:59 | P.PN_ITS ---
Subjective Subjective: Interval history: Patient was seen this morning, she is alert to person, not to place, not to time, she is quite confused, she does follow some commands, she is able to recognize her niece at bedside, her niece tells me that she lives at home by herself, she has no immediate children, currently having her echocardiogram, Vitals/I&O/Wt Last Vital Signs Temp 98.1 F 04/26/21 06:00 Pulse 103 H 04/26/21 13:32 Resp 27 H 04/26/21 13:32 BP 148/76 04/26/21 13:32 Pulse Ox 92 04/26/21 13:32 04/25/21 04/26/21 04/26/21 22:59 06:59 14:59 Intake Total 1000 / 1000 611.321 / 1611.321 145.261 / 145.261 Balance 1000 / 1000 611.321 / 1611.321 145.261 / 145.261 Weight last 48 hrs Weight 117.934 kg Physical Exam 2 Const: COMMON NORMALS: no acute distress EXAM LIMITATIONS: altered mental status ORIENTATION/CONSCIOUSNESS: Yes awake, Yes oriented to person and Yes confused; not oriented to place and not oriented to time Resp: COMMON NORMALS: normal respiratory effort, No retractions and No use of accessory muscles AUSCULTATION: crackles Cardio: COMMON NORMALS: regular rhythm, S1 normal heart sound present and S2 normal heart sound present RATE: tachycardic RHYTHM: regular rhythm HEART SOUNDS: S1 normal heart sound present and S2 normal heart sound present GI: COMMON NORMALS: Normal to inspection, nondistended, normoactive bowel sounds present, Soft to palpation and non-tender PALPATION: Yes Soft to palpation Extremity: COMMON NORMALS: no pedal edema Neuro: SENSORIUM/ORIENTATION: Yes oriented to person, No oriented to place and No oriented to time Urinary Catheter Management^: Martin: Cath Placed During This Visit: yes Reason for Continuing Indwelling Catheter: Assist healing open wound Urinary Catheter Date of Insertion: 04/26/21 Urinary Catheter Time of Insertion: 01:50 Data : 04/25/21 13:56 04/26/21 12:14 Micro: Microbiology 04/26/21 08:31 MRSA Culture - Final Nose 04/26/21 12:14 Blood Culture - Preliminary Blood SPECIMEN COLLECTED 04/26/21 08:31 Bacterial Antigens - Final Urine,Clean Catch 04/26/21 09:15 Blood Culture - Preliminary Blood SPECIMEN COLLECTED A&P Assessment and plan (1) Pulmonary embolism: Status: Acute Qualifiers: Acute cor pulmonale presence: with acute cor pulmonale Chronicity: acute Pulmonary embolism type: unspecified Qualified Code(s): I26.09 - Other pulmonary embolism with acute cor pulmonale (2) COVID-19: Status: Acute (3) HTN (hypertension): Status: Acute (4) HLD (hyperlipidemia): Status: Acute (5) Hyperosmolar hyperglycemic state (HHS): Status: Acute (6) Acute kidney injury: Status: Acute (7) AMS (altered mental status): Status: Acute Additional A&P Information Acute respiratory failure with hypoxia / Acute Saddle PE / COVID-19 Pneumonia Awaiting ICU bed, is on insulin drip, can move to the general medical floors if her anion gap closes, blood sugars less than 200 Currently on 5 L nasal cannula COVID-19 dx on 04/11 CTA Chest- Saddle embolism with extensive B/L PE with RV strain Hemodynamically stable Continue heparin drip per protocol TTEcho Normal left ventricular size and systolic function, EF 56 %. No regional wall motion abnormalities. The right ventricle appears to be normal size and ejection fraction There is no definite features of right ventricular strain. Mild tricuspid valve regurgitation. Estimated pulmonary artery peak systolic pressure of 36 mmHg There is no pericardial effusion. No previous study is available for comparison. Technically difficult study because of the poor ultrasonic window Bilateral lower extremity ultrasound venous negative for DVT Empirically started on Levaquin 750 mg IV - Renal dosing Follow upon cultures blood cultures, urine cultures, urine bacterial antigens, MRSA nares Continue supplemental 02 - currently 6L Continue remdesivir day 1 of 5 Decadron on hold given hyperglycemia Vitamin C, zinc, vitamin D Incentive spirometer, flutter valve Droplet Precautions Leukocytosis Likely due to steroids possible infectious On IV abx as noted above Hyperglycemic Hyperosmolar syndrome ABG 7.4, Blood sugar > 700, mild serum ketone A1c 10.9 Hold on further steroids Likely new-onset DM, stress response Insulin drip per protocol Q1hr BS checks BMP q4hr Will keep NPO for now NSTEMI -Likely supply demand ischemia from acute hypoxic respiratory failure, saddle pulm emboli as above -However cannot rule out underlying cardiac etiology -Aspirin, statin, heparin -Telemetry monitoring -Echo as above Acute kidney injury Likely pre-renal Creatinine 1.2 IVF BMP in am Renal dosing 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 Neuro checks Asa/Statin Altered mental status Hypoxia, COVID-19, pulmonary emboli, acute respiratory failure, HHS Likely undiagnosed underlying Dementia Acute worsening - etiology multifactorial Head CT - No acute abnormality Hypertension Holding home metoprolol/norvasc/irbastartan/HCTZ Hyperlipidemia Lipitor 20 mg PO ohs DVT ppx On heparin drip No SCDS Attestations Medical Necessity Statement*: Patient requires hospitalization, for acute hypoxic respiratory failure, COVID-19, saddle pulm emboli, HHS, NSTEMI, LUCIANO, critical care time spent over 55 minutes Coding Level of Care Code Acute Fire Technology Instructor for Chg Fwd Diagnoses Pulmonary embolism I26.09 Acute cor pulmonale presence: with acute cor pulmonale Chronicity: acute Pulmonary embolism type: unspecified COVID-19 U07.1 HTN (hypertension) I10 HLD (hyperlipidemia) E78.5 Hyperosmolar hyperglycemic state (HHS) E11.00; E11.65 Acute kidney injury N17.9 AMS (altered mental status) R41.82
--- NOTE | 2021-04-26 15:28 | PC.NURSE ---
Wound dressings placed on pt buttocks. Pt continuing to have uncontrollable bowel movements. Pt wounds kept clean and dry.
[2021-04-26 15:45] LABS: Glucose Point of Care 290 mg/dL (70-110)
[2021-04-26 16:35] LABS: Magnesium 2.5 mg/dL (1.7-2.3)
[2021-04-26 16:46] LABS: Anion Gap 18.5 (5-19); Blood Urea Nitrogen 69 mg/dL (8-23); Calcium 9.8 mg/dL (8.5-10.5); Carbon Dioxide 17 mmol/L (22-29); Chloride 105 mmol/L (98-107); Glucose 251 mg/dL (65-115); Osmolality Calculated 311 mOsm/kg (285-295); Phosphorus 1.4 mg/dL (2.5-4.5); Potassium 4.5 mmol/L (3.5-5.1); Sodium 136 mmol/L (136-145)
[2021-04-26 17:58] LABS: Glucose Point of Care 293 mg/dL (70-110)
[2021-04-26 17:58] LABS: Glucose Point of Care 311 mg/dL (70-110)
[2021-04-26 18:11] LABS: Partial Thromboplastin Time > 250.0 SECONDS (23.9-36.7)
[2021-04-26] MEDS: remdesivir 200 MG in sodium chloride 0.9% (100 ml) 60 ML 100 MG IV (18:51)
[2021-04-26 19:52] LABS: Glucose Point of Care 341 mg/dL (70-110)
--- NOTE | 2021-04-26 19:52 | PC.NURSE ---
PT arrived to unit at 1630 on 2L NC. Insulin, heparin and fluids running. PT has stage 2 pressure injury on sacrum. Patient appears to be short of breath and is a&o to self and place only.
[2021-04-26 20:59] LABS: Glucose Point of Care 447 mg/dL (70-110)
[2021-04-26] MEDS: LORazepam 2 mg/mL INJ 1 mL IVP (21:28)
[2021-04-26 22:02] LABS: Glucose Point of Care 413 mg/dL (70-110)
[2021-04-26 22:58] LABS: Anion Gap 21.9 (5-19); Blood Urea Nitrogen 70 mg/dL (8-23); Calcium 9.7 mg/dL (8.5-10.5); Carbon Dioxide 14 mmol/L (22-29); Chloride 108 mmol/L (98-107); Glucose 380 mg/dL (65-115); Osmolality Calculated 324 mOsm/kg (285-295); Phosphorus 1.7 mg/dL (2.5-4.5); Potassium 4.9 mmol/L (3.5-5.1); Sodium 139 mmol/L (136-145)
[2021-04-26 22:59] LABS: Partial Thromboplastin Time 91.5 SECONDS (23.9-36.7)
[2021-04-26 23:07] LABS: Glucose Point of Care 310 mg/dL (70-110)
[2021-04-26 23:26] LABS: Magnesium 2.6 mg/dL (1.7-2.3)
[2021-04-27] VITALS (54 sets, daily range): BP systolic 65–148; BP diastolic 43–86; PULSE 101–152; RESP 14–39; TEMP 36.7–36.9; O2SAT 88–95; BMI 37.5
[2021-04-27 00:07] LABS: Glucose Point of Care 218 mg/dL (70-110)
[2021-04-27 01:10] LABS: Anion Gap 18.6 (5-19); Blood Urea Nitrogen 71 mg/dL (8-23); Calcium 10.2 mg/dL (8.5-10.5); Carbon Dioxide 17 mmol/L (22-29); Chloride 111 mmol/L (98-107); Glucose 182 mg/dL (65-115); Magnesium 2.5 mg/dL (1.7-2.3); Osmolality Calculated 319 mOsm/kg (285-295); Phosphorus 1.3 mg/dL (2.5-4.5); Potassium 4.6 mmol/L (3.5-5.1); Sodium 142 mmol/L (136-145)
[2021-04-27 01:12] LABS: Glucose Point of Care 158 mg/dL (70-110)
[2021-04-27 02:12] LABS: Glucose Point of Care 167 mg/dL (70-110)
[2021-04-27 03:04] LABS: Glucose Point of Care 200 mg/dL (70-110)
[2021-04-27 04:02] LABS: Glucose Point of Care 203 mg/dL (70-110)
[2021-04-27] MEDS: insulin regular-human 250 UNIT in sodium chloride 0.9% 250 ML 11.82 UNIT IV (05:01)
[2021-04-27 05:02] LABS: Glucose Point of Care 257 mg/dL (70-110)
[2021-04-27 05:07] LABS: Basophils # 0.1 10^3/uL (0.0-0.1); Basophils % 0.3 %; Hematocrit 39.9 % (37.0-47.0); Hemoglobin 13.3 g/dL (11.5-15.3); Lymphocytes # 1.5 10^3/uL (0.8-4.8); Lymphocytes % 5.4 %; Mean Corpuscular HGB Conc 33.3 g/dL (30.0-36.0); Mean Corpuscular Volume 86.9 fl (81-99); Mean Platelet Volume 11.8 fL (7.4-10.4); Monocytes # 1.4 10^3/uL (0.2-0.9); Neutrophils # 24.04 10^3/uL (1.8-7.7); Neutrophils % 87.9 %; Nucleated Red Blood Cells % 0.1 %; Platelet Count 155 10^3/cmm (130-400); Red Blood Count 4.59 10^6/uL (4.1-5.3); Red Cell Distribution Width 14.8 % (12.1-15.1); White Blood Count 27.3 10^3/uL (4.0-10.0)
[2021-04-27 05:14] LABS: INR 1.11 (0.8-1.2)
[2021-04-27 05:17] LABS: Partial Thromboplastin Time 48.7 SECONDS (23.9-36.7)
[2021-04-27 05:22] LABS: Lactate (Lactic Acid level) 2.4 mmol/L (0.5-2.2)
[2021-04-27 05:37] LABS: NT Pro B Type Natriuretic Pept 869 pg/mL (0-450); Procalcitonin 0.27 ng/mL (0-0.5)
[2021-04-27 05:48] LABS: Alanine Aminotransferase 52 U/L (0-33); Albumin Level 2.7 g/dL (3.5-5.2); Alkaline Phosphatase 76 IU/L (35-105); Anion Gap 16.2 (5-19); Aspartate Amino Transferase 100 U/L (0-32); Blood Urea Nitrogen 67 mg/dL (8-23); C Reactive Protein 42.2 mg/L (0.0-4.9); Calcium 9.7 mg/dL (8.5-10.5); Carbon Dioxide 17 mmol/L (22-29); Chloride 111 mmol/L (98-107); Globulin 2.1 g/dL (1.3-4.6); Glucose 252 mg/dL (65-115); Magnesium 2.4 mg/dL (1.7-2.3); Osmolality Calculated 316 mOsm/kg (285-295); Phosphorus 1.7 mg/dL (2.5-4.5); Potassium 5.2 mmol/L (3.5-5.1); Sodium 139 mmol/L (136-145); Total Bilirubin 0.6 mg/dL (0.15-1.2); Total Protein 4.8 g/dL (6.6-8.7)
[2021-04-27 06:08] LABS: Creatine Phosphokinase 1871 U/L (26-192)
[2021-04-27] MEDS: heparin 5,000 unit/mL INJ 1 mL IV ×2 (06:13→20:40)
--- NOTE | 2021-04-27 07:00 | XRR_ITS ---
PROCEDURE INFORMATION: Exam: XR Chest Exam date and time: 04/27/2021 7:00 AM Age: 80 years old Clinical indication: Dyspnea; Additional info: SOB TECHNIQUE: Imaging protocol: XR of the chest. Views: 1 view. COMPARISON: CR (CHEST, ) 04/25/2021 1:09 PM FINDINGS: Lungs: Low lung volumes, with unchanged elevation of the right hemidiaphragm. Persistent bilateral airspace opacities. No large pleural effusion or pneumothorax. Pleural spaces: See Lungs finding. Heart/Mediastinum: Stable cardiomediastinal silhouette. Bones/joints: No acute osseous injury identified. Degenerative changes of the spine seen. XR/XR chest 1V portable [id number] IMPRESSION: Persistent bilateral airspace opacities.
[2021-04-27 07:32] LABS: Glucose Point of Care 265 mg/dL (70-110)
[2021-04-27 07:32] LABS: Glucose Point of Care 309 mg/dL (70-110)
[2021-04-27] MEDS: haloperidol inj 5 mg/mL INJ 1 mL 1 MG IVP (08:48)
[2021-04-27] MEDS: budesonide 0.5 mg/2 mL Neb INHALATION (08:49)
[2021-04-27 08:54] LABS: Glucose Point of Care 252 mg/dL (70-110)
[2021-04-27 09:22] LABS: Sodium 140 mmol/L (136-145)
[2021-04-27 09:31] LABS: Blood Urea Nitrogen 63 mg/dL (8-23); Calcium 9.8 mg/dL (8.5-10.5); Carbon Dioxide 18 mmol/L (22-29); Chloride 112 mmol/L (98-107); Glucose 267 mg/dL (65-115); Magnesium 2.5 mg/dL (1.7-2.3); Osmolality Calculated 321 mOsm/kg (285-295); Phosphorus 1.4 mg/dL (2.5-4.5)
--- NOTE | 2021-04-27 10:30 | CT_ITS ---
WS: [id number] CT HEAD NONCONTRAST HISTORY: ams TECHNIQUE: Contiguous axial imaging performed through the brain in 2.5 mm imaging. Bone and soft tiss ue windows. Sagittal and coronal reformats reviewed. All CT scans at [facility] use at least one of these dose optimization techniques: automated exposure control; mA and/or kV adjustment per pa tient size (includes targeted exams where dose is matched to clinical indication); or iterative recon struction. DLP: 1981.42 mGy.cm COMPARISON: 04/25/2021 No acute intracranial hemorrhage, midline shift or mass effect. Moderate atrophy and chronic ischemic disease. Again noted are several small lacunar infarcts in the basal ganglia. These lacunar infarcts were better seen on the prior examination. No acute area of sul germán effacement. Ventricles: Ventricles aren't prominent on the basis of atrophy. Paranasal sinuses: As visualized are clear. Mastoid air cells: Well pneumatized. Calvarium and scalp: Skull is intact with no soft tissue edema or swelling. CT/CT head wo con* [id number] IMPRESSION: 1. No acute intracranial hemorrhage or edema. 2. Moderate atrophy and chronic ischemic disease with basal ganglia lacunar in farcts. No acute interval change.
[2021-04-27 10:40] LABS: Glucose Point of Care 231 mg/dL (70-110)
[2021-04-27] MEDS: dextrose 5%-ns + KCl 40 40 MEQ/1,000 ML BAG 75 MEQ IV (11:47)
[2021-04-27 11:53] LABS: Glucose Point of Care 196 mg/dL (70-110)
[2021-04-27 12:29] LABS: Partial Thromboplastin Time 42.5 SECONDS (23.9-36.7)
[2021-04-27 12:35] LABS: Anion Gap 16.8 (5-19); Blood Urea Nitrogen 58 mg/dL (8-23); Calcium 9.9 mg/dL (8.5-10.5); Carbon Dioxide 17 mmol/L (22-29); Chloride 114 mmol/L (98-107); Glucose 184 mg/dL (65-115); Magnesium 2.4 mg/dL (1.7-2.3); Osmolality Calculated 317 mOsm/kg (285-295); Phosphorus 1.3 mg/dL (2.5-4.5); Potassium 4.8 mmol/L (3.5-5.1); Sodium 143 mmol/L (136-145)
[2021-04-27 13:00] LABS: Glucose Point of Care 168 mg/dL (70-110)
[2021-04-27] MEDS: pantoprazole 40 mg SDV IVP (14:08)
[2021-04-27 15:15] LABS: Glucose Point of Care 166 mg/dL (70-110)
[2021-04-27 15:21] LABS: Glucose Point of Care 118 mg/dL (70-110)
[2021-04-27] MEDS: heparin drip 25,000 UNIT/500 ML PREMIX 17 UNIT IV (16:06)
--- NOTE | 2021-04-27 16:07 | ECG_ITS ---
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 Measurements Intervals [place] Rate: 112 P: -17 DC: 111 QRS: 26 QRSD: 70 T: 60 QT: 319 QTc: 436 Interpretive Statements SINUS TACHYCARDIA WITH SHORT DC INTERVAL NONSPECIFIC T-WAVE ABNORMALITY ABNORMAL RHYTHM ECG Compared to ECG 04/26/2021 01:07:44 Short DC interval now present T-wave abnormality still present Electronically Signed On 04-28-2021 17:44:49 CHEMICAL APPLICATOR by Steven Nolen M.D. [email or web address] memorial hospitalPro-Swift Venturesgrant hospitalBEKIZ/store/NU/[id number] f
--- NOTE | 2021-04-27 16:07 | P.PN_ITS ---
Subjective Subjective: Interval history: Patient was seen this morning, she is alert, not to person, not to place, time, she has been encephalopathic throughout the night, having episodes of agitation, is on 5 L, tachycardic Vitals/I&O/Wt Last Vital Signs Temp 98.4 F 04/27/21 12:00 Pulse 108 H 04/27/21 14:00 Resp 22 H 04/27/21 14:00 BP 130/71 04/27/21 14:00 Pulse Ox 92 04/27/21 14:00 04/27/21 04/27/21 04/27/21 06:59 14:59 22:59 Intake Total 153.103 / 9998.516 7405 / 1000 Output Total 450 / 850 Balance -296.897 / 998.399 6339 / 1000 Weight last 48 hrs Weight 96.162 kg Weight 96.162 kg Physical Exam Const: COMMON NORMALS: no acute distress GENERAL APPEARANCE: ill appearing ORIENTATION/CONSCIOUSNESS: Yes awake and Yes confused; not oriented to person, not oriented to place and not oriented to time Resp: COMMON NORMALS: normal respiratory effort, No retractions, No use of accessory muscles and clear to auscultation bilaterally AUSCULTATION: clear to auscultation bilaterally Cardio: COMMON NORMALS: regular rhythm, S1 normal heart sound present and S2 normal heart sound present RATE: tachycardic RHYTHM: regular rhythm HEART SOUNDS: S1 normal heart sound present and S2 normal heart sound present GI: COMMON NORMALS: Normal to inspection, nondistended, normoactive bowel soun ds present, Soft to palpation and non-tender PALPATION: Yes Soft to palpation Extremity: COMMON NORMALS: no pedal edema Neuro: SENSORIUM/ORIENTATION: No oriented to person, No oriented to place and No oriented to time Urinary Catheter Management^: Martin: Cath Placed During This Visit: yes Reason for Continuing Indwelling Catheter: Accurate Measurement of Urinary Output in Critically Ill Patients Urinary Catheter Date of Insertion: 04/26/21 Urinary Catheter Time of Insertion: 01:50 Data : 04/27/21 04:45 04/27/21 11:52 Micro: Microbiology 04/26/21 12:14 Blood Culture - Preliminary Blood NEGATIVE TO DATE 04/26/21 09:15 Blood Culture - Preliminary Blood NEGATIVE TO DATE 04/26/21 20:46 Bacterial Antigens - Final Urine,Voided 04/26/21 08:31 MRSA Culture - Final Nose 04/26/21 08:31 Bacterial Antigens - Final Urine,Clean Catch A&P Assessment and plan (1) Pulmonary embolism: Status: Acute Qualifiers: Acute cor pulmonale presence: with acute cor pulmonale Chronicity: acute Pulmonary embolism type: unspecified Qualified Code(s): I26.09 - Other pulmonary embolism with acute cor pulmonale (2) COVID-19: Status: Acute (3) HTN (hypertension): Status: Acute (4) HLD (hyperlipidemia): Status: Acute (5) Hyperosmolar hyperglycemic state (HHS): Status: Acute (6) Acute kidney injury: Status: Acute (7) AMS (altered mental status): Status: Acute Additional A&P Information Acute respiratory failure with hypoxia / Acute Saddle PE / COVID-19 Pneumonia Awaiting ICU bed, is on insulin drip, can move to the general medical floors if her anion gap closes, blood sugars less than 200 Currently on 5 L nasal cannula COVID-19 dx on 04/11 CTA Chest- Saddle embolism with extensive B/L PE with RV strain Hemodynamically stable Continue heparin drip per protocol TTEcho Normal left ventricular size and systolic function, EF 56 %. No regional wall motion abnormalities. The right ventricle appears to be normal size and ejection fraction There is no definite features of right ventricular strain. Mild tricuspid valve regurgitation. Estimated pulmonary artery peak systolic pressure of 36 mmHg There is no pericardial effusion. No previous study is available for comparison. Technically difficult study because of the poor ultrasonic window Bilateral lower extremity ultrasound venous negative for DVT Empirically started on Levaquin 750 mg IV - Renal dosing MRSA nares negative, urine bacterial antigen is within normal limits So far blood cultures no growth Continue supplemental 02 - currently 6L Continue remdesivir day 2 of 5 Decadron on hold given hyperglycemia Vitamin C, zinc, vitamin D Incentive spirometer, flutter valve Droplet Precautions Leukocytosis Likely due to steroids possible infectious On IV abx as noted above Hyperglycemic Hyperosmolar syndrome ABG 7.4, Blood sugar > 700, mild serum ketone A1c 10.9 Hold on further steroids Likely new-onset DM, stress response Insulin drip per protocol Maintain potassium greater than 3.5, Q1hr BS checks BMP q4hr Will keep NPO for now NSTEMI -Likely supply demand ischemia from acute hypoxic respiratory failure, saddle pulm emboli as above -However cannot rule out underlying cardiac etiology -Aspirin, statin, heparin -Telemetry monitoring -Echo as above Acute kidney injury Likely pre-renal Creatinine 1.2 IVF BMP in am Renal dosing Rhabdomyolysis, elevated CPK, on IV fluids 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 Neuro checks Asa/Statin Altered mental status Hypoxia, COVID-19, pulmonary emboli, acute respiratory failure, HHS Likely undiagnosed underlying Dementia Acute worsening - etiology multifactorial Head CT - No acute abnormality We will repeat head CT Hypertension Holding home metoprolol/norvasc/irbastartan/HCTZ Hyperlipidemia Lipitor 20 mg PO ohs DVT ppx On heparin drip No SCDS Attestations Medical Necessity Statement*: Patient requires hospitalization for saddle pulm emboli, COVID-19, HHS, critical care time spent over 35 minutes Coding Level of Care Code Acute Director Of Pulmonary Unit for Chg Fwd Diagnoses Pulmonary embolism I26.09 Acute cor pulmonale presence: with acute cor pulmonale Chronicity: acute Pulmonary embolism type: unspecified COVID-19 U07.1 HTN (hypertension) I10 HLD (hyperlipidemia) E78.5 Hyperosmolar hyperglycemic state (HHS) E11.00; E11.65 Acute kidney injury N17.9 AMS (altered mental status) R41.82
[2021-04-27 16:11] LABS: Glucose Point of Care 116 mg/dL (70-110)
[2021-04-27 17:41] LABS: Troponin(5th) Baseline 49 ng/L (0-10)
[2021-04-27 17:45] LABS: Glucose Point of Care 92 mg/dL (70-110)
--- NOTE | 2021-04-27 18:07 | ECG_ITS ---
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 Measurements Intervals [place] Rate: 114 P: [place]: QRS: 29 QRSD: 67 T: 31 QT: 320 QTc: 441 Interpretive Statements Sinus tachycardia with PACs NONSPECIFIC T-WAVE ABNORMALITY ABNORMAL RHYTHM ECG Compared to ECG 04/27/2021 17:11:33 T-wave abnormality still present Electronically Signed On 04-30-2021 9:36:14 GOLF CLUB HEAD INSPECTOR by Zofia Serrano M.D. [email or web address]Mom Made Foodsuniversity hospitals [facility].[employer]/store/OM/[id number]
[2021-04-27] MEDS: remdesivir 100 MG in sodium chloride 0.9% (100 ml) 80 ML IV (18:24)
[2021-04-27 18:29] LABS: Glucose Point of Care 83 mg/dL (70-110)
[2021-04-27 18:57] LABS: Partial Thromboplastin Time 54.3 SECONDS (23.9-36.7)
[2021-04-27 19:05] LABS: Troponin 5 2HR 49.89 ng/L (0-10); Troponin 5 2HR Delta 0.89 ABS# (0-10)
[2021-04-27 19:07] LABS: Anion Gap 15.5 (5-19); Blood Urea Nitrogen 50 mg/dL (8-23); Calcium 9.8 mg/dL (8.5-10.5); Carbon Dioxide 17 mmol/L (22-29); Chloride 117 mmol/L (98-107); Glucose 82 mg/dL (65-115); Magnesium 2.3 mg/dL (1.7-2.3); Osmolality Calculated 312 mOsm/kg (285-295); Phosphorus 1.3 mg/dL (2.5-4.5); Potassium 4.5 mmol/L (3.5-5.1); Sodium 145 mmol/L (136-145)
[2021-04-27] MEDS: dexmedeTOMIDine 0.9 % NaCL 400 MCG/100 ML PREMIX IV (19:24)
[2021-04-27 19:42] LABS: Glucose Point of Care 87 mg/dL (70-110)
[2021-04-27 20:27] LABS: Glucose Point of Care 96 mg/dL (70-110)
[2021-04-27 21:10] LABS: Anion Gap 13.7 (5-19); Blood Urea Nitrogen 49 mg/dL (8-23); Carbon Dioxide 18 mmol/L (22-29); Chloride 120 mmol/L (98-107); Glucose 93 mg/dL (65-115); Magnesium 2.3 mg/dL (1.7-2.3); Osmolality Calculated 317 mOsm/kg (285-295); Phosphorus 1.3 mg/dL (2.5-4.5); Potassium 4.7 mmol/L (3.5-5.1); Sodium 147 mmol/L (136-145)
--- NOTE | 2021-04-27 22:07 | ECG_ITS ---
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 Measurements Intervals [place] Rate: 102 P: 6 AK: 120 QRS: 44 QRSD: 72 T: 66 QT: 362 QTc: 472 Interpretive Statements SINUS TACHYCARDIA ABNORMAL RHYTHM ECG Compared to ECG 04/27/2021 18:16:29 Atrial fibrillation no longer present T-wave abnormality no longer present Electronically Signed On 04-29-2021 19:27:26 CLINICAL RESEARCH SPECIALIST by Zofia Serrano M.D. [email or web address] medical centerAirpushohiohealth pickerington methodist hospitalCitiLogics/store/OM/[id number]
[2021-04-27 22:32] LABS: Troponin 5 6HR 53.84 ng/L (0-10); Troponin 5 6HR Delta 4.84 ng/L (0-12)
[2021-04-27 22:48] LABS: Glucose Point of Care 91 mg/dL (70-110)
[2021-04-27 22:48] LABS: Glucose Point of Care 88 mg/dL (70-110)
[2021-04-27] MEDS: sodium chloride 0.9% 500 ML IV (22:56)
[2021-04-27 23:58] LABS: Glucose Point of Care 90 mg/dL (70-110)
[2021-04-28] VITALS (220 sets, daily range): BP systolic 75–149; BP diastolic 37–99; PULSE 50–113; RESP 0–38; TEMP 36.3–37.5; O2SAT 85–100; BMI 37.9
[2021-04-28] MEDS: dextrose 5%-sod chloride 0.45% 1,000 ML 50 ML IV (00:09)
[2021-04-28] MEDS: dexmedeTOMIDine 0.9 % NaCL 400 MCG/100 ML PREMIX IV (00:13)
[2021-04-28 00:31] LABS: Glucose Point of Care 85 mg/dL (70-110)
--- NOTE | 2021-04-28 00:51 | PC.PHAR ---
Vancomycin is dosed at 1250mg IVPB every 24 hours to produce a predicted trough level of 16.38 (population based pharmacokinetic analysis). A trough level has been ordered from the lab to be obtained before the fourth dose to confirm and adjust if needed.
[2021-04-28] MEDS: vancomycin 1,250 MG/250 ML PIGGYBACK 250 MG IV (01:05)
[2021-04-28 01:49] LABS: Anion Gap 12.2 (5-19); Blood Urea Nitrogen 48 mg/dL (8-23); Calcium 10.1 mg/dL (8.5-10.5); Carbon Dioxide 20 mmol/L (22-29); Chloride 122 mmol/L (98-107); Glucose 98 mg/dL (65-115); Magnesium 2.4 mg/dL (1.7-2.3); Osmolality Calculated 321 mOsm/kg (285-295); Phosphorus 1.2 mg/dL (2.5-4.5); Potassium 5.2 mmol/L (3.5-5.1); Sodium 149 mmol/L (136-145)
[2021-04-28 01:55] LABS: Partial Thromboplastin Time 124.5 SECONDS (23.9-36.7)
[2021-04-28] MEDS: levofloxacin-dextrose 5 % 750 MG/150 ML PREMIX 100 MG IV (02:19)
[2021-04-28 02:26] LABS: Glucose Point of Care 100 mg/dL (70-110)
[2021-04-28 03:49] LABS: Glucose Point of Care 110 mg/dL (70-110)
[2021-04-28 04:59] LABS: Glucose Point of Care 109 mg/dL (70-110)
[2021-04-28 05:05] LABS: Basophils # 0.1 10^3/uL (0.0-0.1); Basophils % 0.2 %; Hematocrit 35.8 % (37.0-47.0); Hemoglobin 11.4 g/dL (11.5-15.3); Lymphocytes # 1.9 10^3/uL (0.8-4.8); Lymphocytes % 7.8 %; Mean Corpuscular HGB Conc 31.8 g/dL (30.0-36.0); Mean Corpuscular Hemoglobin 28.6 pg (28.0-34.0); Mean Corpuscular Volume 89.9 fl (81-99); Mean Platelet Volume 11.9 fL (7.4-10.4); Monocytes # 1.3 10^3/uL (0.2-0.9); Monocytes % 5.2 %; Neutrophils # 20.94 10^3/uL (1.8-7.7); Neutrophils % 84.6 %; Nucleated Red Blood Cells # 0.2 /100WBC; Nucleated Red Blood Cells % 0.7 %; Platelet Count 150 10^3/cmm (130-400); Red Blood Count 3.98 10^6/uL (4.1-5.3); Red Cell Distribution Width 15.1 % (12.1-15.1); White Blood Count 24.8 10^3/uL (4.0-10.0)
--- NOTE | 2021-04-28 05:06 | PC.NURSE ---
Spoke with Dr. John bedside around 2031 in regards to the patients IVF and lab values if he wanted to switch the fluids over, and if he wanted to continue to the insulin drip with the patient's blood sugar and anion gap, and if he wanted to rebolus the heparin due to protocol and day shift not rebolusing. Orders to switch the IVF to D51/2NS at 50ml/hr after the current IVF finish infusing, continue with insulin drip due the patient not being able to tolerate anything by mouth, and go ahead and rebolus per heparin protocol with PTT result. Called Dr. John around 2249 due to patient's low blood pressure and shutting off the precedex. Shutting off the precedex did not help with patient pressures prior to speaking with Dr. John. Orders for a 500 bolus of NS and then a levo drip if the bolus does not help. Spoke with Dr. John near bedside around 35 due to lab calling and informing of 2/4 blood cultures coming back gram positive cocci in clusters. Dr. John will place orders to add on vancomycin.
[2021-04-28 05:20] LABS: Lactate (Lactic Acid level) 1.9 mmol/L (0.5-2.2)
[2021-04-28 05:29] LABS: Alanine Aminotransferase 47 U/L (0-33); Albumin Level 2.6 g/dL (3.5-5.2); Alkaline Phosphatase 78 IU/L (35-105); Anion Gap 14.8 (5-19); Aspartate Amino Transferase 65 U/L (0-32); Blood Urea Nitrogen 47 mg/dL (8-23); C Reactive Protein 57.1 mg/L (0.0-4.9); Calcium 9.7 mg/dL (8.5-10.5); Carbon Dioxide 17 mmol/L (22-29); Chloride 118 mmol/L (98-107); Glucose 94 mg/dL (65-115); Magnesium 2.3 mg/dL (1.7-2.3); Osmolality Calculated 312 mOsm/kg (285-295); Phosphorus 1.4 mg/dL (2.5-4.5); Potassium 4.8 mmol/L (3.5-5.1); Sodium 145 mmol/L (136-145); Total Bilirubin 0.6 mg/dL (0.15-1.2); Total Protein 4.6 g/dL (6.6-8.7)
[2021-04-28 05:47] LABS: NT Pro B Type Natriuretic Pept 770 pg/mL (0-450); Procalcitonin 0.15 ng/mL (0-0.5)
[2021-04-28 05:59] LABS: Anion Gap 14.9 (5-19); Blood Urea Nitrogen 46 mg/dL (8-23); Calcium 9.8 mg/dL (8.5-10.5); Carbon Dioxide 18 mmol/L (22-29); Chloride 121 mmol/L (98-107); Glucose 90 mg/dL (65-115); Magnesium 2.4 mg/dL (1.7-2.3); Osmolality Calculated 319 mOsm/kg (285-295); Potassium 4.9 mmol/L (3.5-5.1); Sodium 149 mmol/L (136-145)
[2021-04-28 05:59] LABS: Glucose Point of Care 103 mg/dL (70-110)
[2021-04-28 06:07] LABS: Creatine Phosphokinase 791 U/L (26-192)
[2021-04-28] MEDS: dexmedeTOMIDine 0.9 % NaCL 400 MCG/100 ML PREMIX 16.83 MCG IV (06:35)
[2021-04-28 06:37] LABS: Glucose Point of Care 121 mg/dL (70-110)
[2021-04-28 08:57] LABS: Glucose Point of Care 121 mg/dL (70-110)
[2021-04-28 09:17] LABS: ABG PCO2 24.2 mmHg (35-45); ABG PH Result 7.47 (7.35-7.45); Base Excess ABG -4.4 mmol/L (-2.0-2.0); HCO3 ABG 17.7 mmol/L (22-26); PO2 ABG 75.5 mmHg (80.0-100.0)
[2021-04-28 09:18] LABS: Blood Gas Operator Identificat ED; Oxygen Device NC; Oxygen Saturation ABG 96.6; Potassium Level - ABG 4.9 mmol/L (3.5-5.0)
[2021-04-28 09:19] LABS: Arterial Blood Gas Hematocrit 35.9 % (37-47); Total Hemoglobin 11.7 g/dL (12-16)
[2021-04-28 09:20] LABS: Carboxyhemoglobin 0.8 %THgb (0.4-20.1); Methemoglobin 0.2 % (0.4-1.5)
[2021-04-28 09:45] LABS: Partial Thromboplastin Time 56.8 SECONDS (23.9-36.7)
[2021-04-28 09:51] LABS: Anion Gap 15.1 (5-19); Blood Urea Nitrogen 45 mg/dL (8-23); Calcium 9.8 mg/dL (8.5-10.5); Carbon Dioxide 16 mmol/L (22-29); Chloride 119 mmol/L (98-107); Glucose 102 mg/dL (65-115); Magnesium 2.3 mg/dL (1.7-2.3); Osmolality Calculated 312 mOsm/kg (285-295); Potassium 5.1 mmol/L (3.5-5.1); Sodium 145 mmol/L (136-145)
[2021-04-28 09:52] LABS: Alveolar-Arterial Oxygen Gradi 26.7 mmHg (5-10); Blood Gas Sample Site Brachial, left; Blood Gas Sample Type Arterial; HGB O2 Sat 95.6 % (95-100); Ionized Calcium Level - ABG 1.5 mmol/L (1.1-1.4)
[2021-04-28 10:03] LABS: Glucose Point of Care 131 mg/dL (70-110)
[2021-04-28] MEDS: enoxaparin 100 mg/mL Syringe SUBCUT ×2 (10:32→21:11)
[2021-04-28] MEDS: aztreonam 2,000 MG in sodium chloride 0.9% (plus) 100 ML 200 MG IV ×2 (10:32→17:50)
--- NOTE | 2021-04-28 10:32 | PC.NUTR ---
TF consult received. Recommend TF in current orders/care in pt's chart of Glucerna 1.2 @ 10 mls/hr be advanced 10 mls Q8H as tolerated til goal rate of 40 mls/hr is reached with FW flushes 100 mls Q6H. Details in RD assessment.
[2021-04-28] MEDS: pantoprazole 40 mg SDV IVP (10:33)
--- NOTE | 2021-04-28 10:35 | XR_ITS ---
WS: [id number] Exam: XR chest 1V portable [id number] Date/Time of Exam: 04/28/2021 10:42 AM Reason For Exam: NG tube verification This is a limited study of the chest for NG tube positioning An enteric tube has been inserted and most likely ends in the body the stomach. Again noted are scatt ered opacities in the visualized lung thorne. Heart size is normal. No pleural effusions. Monitoring leads superimpose the chest. XR/XR chest 1V portable [id number] IMPRESSION: 1. Enteric tube ending in the body the stomach.
[2021-04-28] MEDS: ascorbic acid 500 mg Tablet PO ×2 (11:36→17:50)
[2021-04-28] MEDS: midodrine 5 mg TABLET 10 MG PO ×2 (11:36→15:08)
[2021-04-28] MEDS: zinc gluconate 50 mg Tablet PO (11:36)
[2021-04-28] MEDS: cholecalciferol (vitamin D3) 1,000 unit Tablet 1000 UNIT PO (11:36)
[2021-04-28 12:29] LABS: Glucose Point of Care 122 mg/dL (70-110)
[2021-04-28 13:15] LABS: Magnesium 2.3 mg/dL (1.7-2.3)
[2021-04-28 13:31] LABS: Glucose Point of Care 124 mg/dL (70-110)
[2021-04-28 14:00] LABS: Glucose Point of Care 124 mg/dL (70-110)
--- NOTE | 2021-04-28 14:17 | PM.PN ---
Subjective Subjective: Interval history: Patient was seen this morning she is alert, she does awaken, but falls back asleep, continues to be confused, has not eaten in over 48 hours, does not follow commands, family is at bedside, overnight she became hypotensive requiring Levophed, and the Levophed did infiltrate in her left arm, which has subsequently been stopped, I really addressed her goals of care with her healthcare power of user experience developer, for now full code, but above all they want her to remain comfortable, they will reassess her goals of care as she things unfold Vitals/I&O/Wt Last Vital Signs Temp 97.4 F L 04/28/21 08:30 Pulse 59 L 04/28/21 09:50 Resp 22 H 04/28/21 09:50 BP 111/49 04/28/21 09:50 Pulse Ox 95 04/28/21 09:50 04/27/21 04/28/21 04/28/21 22:59 06:59 14:59 Intake Total 236.221 / 4178.301 9883.595 / 3566.127 Output Total 900 / 900 350 / 1250 Balance -663.779 / 051.976 3959.595 / 2316.127 Weight last 48 hrs Weight 97.069 kg Weight 96.162 kg Weight 96.162 kg Physical Exam Const: COMMON NORMALS: no acute distress EXAM LIMITATIONS: altered mental status GENERAL APPEARANCE: ill appearing ORIENTATION/CONSCIOUSNESS: Yes awake and Yes oriented to person; not oriented to place and not oriented to time Resp: COMMON NORMALS: normal respiratory effort, No retractions and No use of accessory muscles AUSCULTATION: diminished lung sounds diffuse Cardio: COMMON NORMALS: regular rate, regular rhythm, S1 normal heart sound present and S2 normal heart sound present RATE: regular rate RHYTHM: regular rhythm HEART SOUNDS: S1 normal heart sound present and S2 normal heart sound present GI: COMMON NORMALS: Normal to inspection, nondistended, normoactive bowel sounds present, Soft to palpation and non-tender PALPATION: Yes Soft to palpation Extremity: OTHER: Bilateral lower extremity nonpitting edema Neuro: SENSORIUM/ORIENTATION: Yes oriented to person, No oriented to place and No oriented to time Urinary Catheter Management^: Martin: Cath Placed During This Visit: yes Reason for Continuing Indwelling Catheter: Accurate Measurement of Urinary Output in Critically Ill Patients Urinary Catheter Date of Insertion: 04/26/21 Urinary Catheter Time of Insertion: 01:50 Data : 04/28/21 04:13 04/28/21 09:09 Micro: Microbiology 04/26/21 12:14 Blood Culture - Preliminary Blood Micrococcus Species 04/26/21 20:46 MRSA Culture - Final Nose 04/26/21 09:15 Blood Culture - Preliminary Blood NEGATIVE TO DATE 04/26/21 20:46 Bacterial Antigens - Final Urine,Voided A&P Assessment and plan (1) Pulmonary embolism: Status: Acute Qualifiers: Acute cor pulmonale presence: with acute cor pulmonale Chronicity: acute Pulmonary embolism type: unspecified Qualified Code(s): I26.09 - Other pulmonary embolism with acute cor pulmonale (2) COVID-19: Status: Acute (3) HTN (hypertension): Status: Acute (4) HLD (hyperlipidemia): Status: Acute (5) Hyperosmolar hyperglycemic state (HHS): Status: Acute (6) Acute kidney injury: Status: Acute (7) AMS (altered mental status): Status: Acute Additional A&P Information Acute respiratory failure with hypoxia / Acute Saddle PE / COVID-19 Pneumonia Anion gap closed, however cannot take in orally due to altered mental status, continue insulin drip overlap with Levemir We will give 1 6 mg dose of Decadron monitor blood sugars closely Currently on 5 L nasal cannula COVID-19 dx on 04/11 CTA Chest- Saddle embolism with extensive B/L PE with RV strain Hemodynamically stable Start therapeutic Lovenox TTEcho Normal left ventricular size and systolic function, EF 56 %. No regional wall motion abnormalities. The right ventricle appears to be normal size and ejection fraction There is no definite features of right ventricular strain. Mild tricuspid valve regurgitation. Estimated pulmonary artery peak systolic pressure of 36 mmHg There is no pericardial effusion. No previous study is available for comparison. Technically difficult study because of the poor ultrasonic window Bilateral lower extremity ultrasound venous negative for DVT Empirically started on Levaquin 750 mg IV - Renal dosing, vancomycin, aztreonam MRSA nares negative, urine bacterial antigen is within normal limits Continue supplemental 02 - currently 6L Continue remdesivir day 3 of 5 1 dose of Decadron today Maintain MAP in the 65, midodrine 10 every 8 hours Precedex for agitation, does have evidence of sinus bradycardia, monitor Vitamin C, zinc, vitamin D Incentive spirometer, flutter valve Droplet Precautions Gram-positive bacteremia -Review blood cultures -Antibiotics as above Leukocytosis Likely due to steroids possible infectious On IV abx as noted above Hyperglycemic Hyperosmolar syndrome Anion gap closed, no oral intake due to altered mental status, continue Levemir, insulin drip A1c 10.9 1 dose steroid today Likely new-onset DM, stress response Insulin drip per protocol Maintain potassium greater than 3.5, Q1hr BS checks BMP q4hr Nasogastric tube insertion, start tube feeds, Glucerna at 10 cc an hour, free water flushes 100 cc every 4 hours, consult dietary NSTEMI -Likely supply demand ischemia from acute hypoxic respiratory failure, saddle pulm emboli as above -However cannot rule out underlying cardiac etiology -Aspirin, statin, heparin -Telemetry monitoring -Echo as above Acute kidney injury Likely pre-renal Creatinine 1.2 IVF BMP in am Renal dosing Rhabdomyolysis, elevated CPK, on IV fluids 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 Neuro checks Asa/Statin Altered mental status Hypoxia, COVID-19, pulmonary emboli, acute respiratory failure, HHS Likely undiagnosed underlying Dementia Acute worsening - etiology multifactorial Head CT - No acute abnormality We will repeat head CT Hypertension Holding home metoprolol/norvasc/irbastartan/HCTZ Hyperlipidemia Lipitor 20 mg PO ohs DVT ppx On heparin drip No SCDS Attestations Medical Necessity Statement*: Patient requires hospitalization for acute respiratory failure sec to COVID-19, saddle pulmonary emboli, acute encephalopathy, gram-positive bacteremia, HHS, LUCIANO, critical care time spent over 55 minutes Coding Level of Care Code Acute Application Support Analyst for [facility] Fwd Diagnoses Pulmonary embolism I26.09 Acute cor pulmonale presence: with acute cor pulmonale Chronicity: acute Pulmonary embolism type: unspecified COVID-19 U07.1 HTN (hypertension) I10 HLD (hyperlipidemia) E78.5 Hyperosmolar hyperglycemic state (HHS) E11.00; E11.65 Acute kidney injury N17.9 AMS (altered mental status) R41.82
[2021-04-28] MEDS: dexamethasone 10 mg/mL INJ 6 MG IVP (15:07)
[2021-04-28 15:30] LABS: Glucose Point of Care 128 mg/dL (70-110)
[2021-04-28 16:50] LABS: Glucose Point of Care 130 mg/dL (70-110)
[2021-04-28] MEDS: remdesivir 100 MG in sodium chloride 0.9% (100 ml) 80 ML IV (17:50)
[2021-04-28 18:39] LABS: Glucose Point of Care 122 mg/dL (70-110)
[2021-04-28] MEDS: ipratropium-albuterol 3 mL Neb INHALATION (20:03)
[2021-04-28] MEDS: budesonide 0.5 mg/2 mL Neb INHALATION (20:03)
[2021-04-28 20:26] LABS: Anion Gap 14.1 (5-19); Blood Urea Nitrogen 42 mg/dL (8-23); Calcium 9.7 mg/dL (8.5-10.5); Carbon Dioxide 18 mmol/L (22-29); Chloride 119 mmol/L (98-107); Glucose 136 mg/dL (65-115); Magnesium 2.4 mg/dL (1.7-2.3); Osmolality Calculated 315 mOsm/kg (285-295); Phosphorus 2.2 mg/dL (2.5-4.5); Potassium 5.1 mmol/L (3.5-5.1); Sodium 146 mmol/L (136-145)
[2021-04-28 20:56] LABS: Glucose Point of Care 143 mg/dL (70-110)
[2021-04-28 21:49] LABS: Glucose Point of Care 118 mg/dL (70-110)
[2021-04-28 22:35] LABS: Glucose Point of Care 147 mg/dL (70-110)
[2021-04-29] VITALS (291 sets, daily range): BP systolic 80–176; BP diastolic 47–118; PULSE 72–165; RESP 5–35; TEMP 36.4–37.1; O2SAT 66–99; BMI 40.7
[2021-04-29] MEDS: vancomycin 1,250 MG/250 ML PIGGYBACK 250 MG IV (00:04)
[2021-04-29] MEDS: midodrine 5 mg TABLET 10 MG PO ×2 (00:04→08:10)
[2021-04-29 01:08] LABS: Glucose Point of Care 155 mg/dL (70-110)
[2021-04-29 02:31] LABS: Glucose Point of Care 170 mg/dL (70-110)
[2021-04-29] MEDS: aztreonam 2,000 MG in sodium chloride 0.9% (plus) 100 ML 200 MG IV ×3 (03:00→17:48)
[2021-04-29 03:41] LABS: Basophils % 0.2 %; Hematocrit 37.8 % (37.0-47.0); Lymphocytes # 0.7 10^3/uL (0.8-4.8); Lymphocytes % 3.9 %; Mean Corpuscular HGB Conc 31.7 g/dL (30.0-36.0); Mean Corpuscular Volume 91.3 fl (81-99); Mean Platelet Volume 12.2 fL (7.4-10.4); Monocytes # 0.9 10^3/uL (0.2-0.9); Monocytes % 4.6 %; Neutrophils # 17.12 10^3/uL (1.8-7.7); Neutrophils % 89.3 %; Nucleated Red Blood Cells % 0.2 %; Platelet Count 107 10^3/cmm (130-400); Red Blood Count 4.14 10^6/uL (4.1-5.3); Red Cell Distribution Width 15.5 % (12.1-15.1); White Blood Count 19.2 10^3/uL (4.0-10.0)
[2021-04-29 03:55] LABS: INR 1.12 (0.8-1.2)
[2021-04-29 04:02] LABS: Glucose Point of Care 196 mg/dL (70-110)
[2021-04-29 04:09] LABS: Alanine Aminotransferase 68 U/L (0-33); Albumin Level 2.5 g/dL (3.5-5.2); Alkaline Phosphatase 98 IU/L (35-105); Anion Gap 16.2 (5-19); Aspartate Amino Transferase 120 U/L (0-32); Blood Urea Nitrogen 41 mg/dL (8-23); C Reactive Protein 56.5 mg/L (0.0-4.9); Calcium 9.8 mg/dL (8.5-10.5); Carbon Dioxide 16 mmol/L (22-29); Chloride 117 mmol/L (98-107); Globulin 2.1 g/dL (1.3-4.6); Glucose 221 mg/dL (65-115); Magnesium 2.3 mg/dL (1.7-2.3); Osmolality Calculated 315 mOsm/kg (285-295); Phosphorus 3.2 mg/dL (2.5-4.5); Potassium 5.2 mmol/L (3.5-5.1); Sodium 144 mmol/L (136-145); Total Bilirubin 0.5 mg/dL (0.15-1.2); Total Protein 4.6 g/dL (6.6-8.7)
[2021-04-29 04:10] LABS: Lactate (Lactic Acid level) 1.9 mmol/L (0.5-2.2)
[2021-04-29 04:23] LABS: NT Pro B Type Natriuretic Pept 527 pg/mL (0-450); Procalcitonin 0.11 ng/mL (0-0.5)
[2021-04-29 04:55] LABS: Creatine Phosphokinase 2898 U/L (26-192)
[2021-04-29 05:21] LABS: Glucose Point of Care 171 mg/dL (70-110)
[2021-04-29 06:44] LABS: Glucose Point of Care 218 mg/dL (70-110)
--- NOTE | 2021-04-29 06:49 | PC.NURSE ---
Shift Note Frequent safety and comfort rounds continue. Orders and/or nursing care completed as indicated. Patient monitored for response to intervention and treatment(s). Education provided includes frequent turning/repositioning and wound care. Patient needs further reinforcement. Patient had an uneventful night, she remains on 6LNC. She has a wound on the sacrum left open to air. Frequently turned and repositioned patient throughout the shift and provided oral care. Martin catheter drained 1100 mls of urine overnight. Will continue to monitor.
[2021-04-29 07:35] LABS: Glucose Point of Care 242 mg/dL (70-110)
[2021-04-29] MEDS: lanolin oint 7 gm 1 APPLIC TOPICAL (08:09)
[2021-04-29] MEDS: cholecalciferol (vitamin D3) 1,000 unit Tablet 1000 UNIT PO (08:10)
[2021-04-29] MEDS: ascorbic acid 500 mg Tablet PO ×2 (08:10→17:16)
[2021-04-29] MEDS: pantoprazole 40 mg SDV IVP (08:10)
[2021-04-29] MEDS: zinc gluconate 50 mg Tablet PO (08:10)
[2021-04-29] MEDS: budesonide 0.5 mg/2 mL Neb INHALATION ×2 (08:14→20:23)
[2021-04-29] MEDS: dexmedeTOMIDine 0.9 % NaCL 400 MCG/100 ML PREMIX IV (08:40)
[2021-04-29] MEDS: enoxaparin 100 mg/mL Syringe SUBCUT ×2 (08:40→21:45)
[2021-04-29 08:56] LABS: Glucose Point of Care 260 mg/dL (70-110)
--- NOTE | 2021-04-29 09:34 | PC.NURSE ---
colace and miralax held, not inidicated. Patient is having frequent soft bowel movements.
[2021-04-29 09:39] LABS: Bacillus cereus group Not Detected (NOT DETECT); Bacillus subtillis group Not Detected (NOT DETECT); Corynebacterium Not Detected (NOT DETECT); Cutibacterium acnes (P.acnes) Not Detected (NOT DETECT); Enterococcus Not Detected (NOT DETECT); Enterococcus faecalis Not Detected (NOT DETECT); Enterococcus faecium Not Detected (NOT DETECT); Lactobacillus species Not Detected (NOT DETECT); Listeria Not Detected (NOT DETECT); Listeria monocytogenes Not Detected (NOT DETECT); Micrococcus Detected (NOT DETECT); Pan Candida Not Detected (NOT DETECT); Pan Gram-Negative Not Detected (NOT DETECT); Staphylococcus epidermidis Not Detected (NOT DETECT); Staphylococcus lugdunensis Not Detected (NOT DETECT); Staphylococcus species Not Detected (NOT DETECT); Streptococcus agalactiae Not Detected (NOT DETECT); Streptococcus anginosus group Not Detected (NOT DETECT); Streptococcus pneumoniae Not Detected (NOT DETECT); Streptococcus pyogenes Not Detected (NOT DETECT); Streptococcus species Not Detected (NOT DETECT)
[2021-04-29 09:42] LABS: mecC Not Detected (NOT DETECT)
[2021-04-29] MEDS: sodium chloride 0.9% 1,000 ML 50 ML IV (09:44)
--- NOTE | 2021-04-29 09:45 | PC.SOCIAL ---
IMM Update pg 2 of IMM updated and reviewed w/ patients family. Copy provided.
[2021-04-29 09:51] LABS: Glucose Point of Care 243 mg/dL (70-110)
[2021-04-29 11:01] LABS: Glucose Point of Care 236 mg/dL (70-110)
[2021-04-29 11:40] LABS: Glucose Point of Care 188 mg/dL (70-110)
--- NOTE | 2021-04-29 12:17 | PM.PN ---
Subjective Subjective: Interval history: Patient was seen this morning, family members at bedside, NG tube in place, she is receiving enteric feeding, remains on 5 L, normotensive, has intermittent tachycardia with heart rates as high as 140s, sinus, she is alert to person, not to place, not to time, she does follow commands, she recognizes her niece and her brother at bedside, she is much more alert, and awake Vitals/I&O/Wt Last Vital Signs Temp 98.7 F 04/29/21 08:30 Pulse 111 H 04/29/21 10:00 Resp 22 H 04/29/21 10:00 BP 160/106 04/29/21 10:00 Pulse Ox 95 04/29/21 10:00 04/28/21 04/29/21 04/29/21 22:59 06:59 14:59 Intake Total 1342.782 / 1714.880 668 / 2382.880 Output Total 400 / 800 1100 / 1900 Balance 942.782 / 914.880 -432 / 482.880 Weight last 48 hrs Weight 104.411 kg Weight 97.069 kg Physical Exam Const: COMMON NORMALS: no acute distress ORIENTATION/CONSCIOUSNESS: Yes awake and Yes oriented to person; not oriented to place and not oriented to time Resp: COMMON NORMALS: normal respiratory effort, No retractions, No use of accessory muscles and clear to auscultation bilaterally AUSCULTATION: clear to auscultation bilaterally Cardio: COMMON NORMALS: regular rhythm, S1 normal heart sound present and S2 normal heart sound present RATE: tachycardic RHYTHM: regular rhythm HEART SOUNDS: S1 normal heart sound present and S2 normal heart sound present GI: COMMON NORMALS: Normal to inspection, nondistended, normoactive bowel sounds present, Soft to palpation and non-tender PALPATION: Yes Soft to palpation Extremity: COMMON NORMALS: no pedal edema Neuro: SENSORIUM/ORIENTATION: Yes oriented to person, No oriented to place and No oriented to time Urinary Catheter Management^: Martin: Cath Placed During This Visit: yes Reason for Continuing Indwelling Catheter: Accurate Measurement of Urinary Output in Critically Ill Patients Urinary Catheter Date of Insertion: 04/26/21 Urinary Catheter Time of Insertion: 01:50 Data : 04/29/21 03:25 04/29/21 03:25 Micro: Microbiology 04/28/21 19:56 Blood Culture - Preliminary Blood SPECIMEN COLLECTED 04/28/21 14:59 Blood Culture - Preliminary Blood SPECIMEN COLLECTED 04/26/21 12:14 Blood Culture - Preliminary Blood Micrococcus Species A&P Assessment and plan (1) Pulmonary embolism: Status: Acute Qualifiers: Acute cor pulmonale presence: with acute cor pulmonale Chronicity: acute Pulmonary embolism type: unspecified Qualified Code(s): I26.09 - Other pulmonary embolism with acute cor pulmonale (2) COVID-19: Status: Acute (3) HTN (hypertension): Status: Acute (4) HLD (hyperlipidemia): Status: Acute (5) Hyperosmolar hyperglycemic state (HHS): Status: Acute (6) Acute kidney injury: Status: Acute (7) AMS (altered mental status): Status: Acute Additional A&P Information Acute respiratory failure with hypoxia / Acute Saddle PE / COVID-19 Pneumonia Anion gap closed, however cannot take in orally due to altered mental status, continue insulin drip overlap with Levemir Will give another 6 mg of Decadron Currently on 5 L nasal cannula COVID-19 dx on 04/11 CTA Chest- Saddle embolism with extensive B/L PE with RV strain Hemodynamically stable Start therapeutic Lovenox TTEcho Normal left ventricular size and systolic function, EF 56 %. No regional wall motion abnormalities. The right ventricle appears to be normal size and ejection fraction There is no definite features of right ventricular strain. Mild tricuspid valve regurgitation. Estimated pulmonary artery peak systolic pressure of 36 mmHg There is no pericardial effusion. No previous study is available for comparison. Technically difficult study because of the poor ultrasonic window Bilateral lower extremity ultrasound venous negative for DVT Empirically started on Levaquin 750 mg IV - Renal dosing, vancomycin, aztreonam MRSA nares negative, urine bacterial antigen is within normal limits Continue supplemental 02 - currently 6L Continue remdesivir day 3 of 5 Status post 2 doses of Decadron Maintain MAP in the 65, hold off on midodrine Precedex for agitation, monitor Vitamin C, zinc, vitamin D Incentive spirometer, flutter valve Droplet Precautions Gram-positive bacteremia -Review blood cultures, micrococcus species -Antibiotics as above Leukocytosis Likely due to steroids possible infectious On IV abx as noted above Hyperglycemic Hyperosmolar syndrome Anion gap closed, no oral intake due to altered mental status, continue Levemir, insulin drip A1c 10.9 Likely new-onset DM, stress response Insulin drip per protocol Maintain potassium greater than 3.5, Q1hr BS checks BMP q4hr Nasogastric tube insertion, start tube feeds, Glucerna at 10 cc an hour, free water flushes 100 cc every 4 hours, consult dietary NSTEMI -Likely supply demand ischemia from acute hypoxic respiratory failure, saddle pulm emboli as above -However cannot rule out underlying cardiac etiology -Aspirin, statin, heparin -Telemetry monitoring -Echo as above Acute kidney injury Likely pre-renal Creatinine 1.2 IVF BMP in am Renal dosing Rhabdomyolysis, elevated CPK, on IV fluids 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 Neuro checks Statin on hold given rhabdomyolysis Altered mental status Hypoxia, COVID-19, pulmonary emboli, acute respiratory failure, HHS Likely undiagnosed underlying Dementia Acute worsening - etiology multifactorial Head CT - No acute abnormality Obtain cortisol, TSH Hypertension Holding home metoprolol/norvasc/irbastartan/HCTZ Hyperlipidemia Lipitor 20 mg PO ohs DVT ppx On therapeutic Lovenox No SCDS Attestations Medical Necessity Statement*: Patient requires hospitalization for acute respiratory failure secondary to COVID-19, saddle pulmonary emboli, HHS, NSTEMI, acute encephalopathy, critical care time spent over 35 minutes Coding Level of Care Code Acute Packaging Specialist for [facility] Fwd Diagnoses Pulmonary embolism I26.09 Acute cor pulmonale presence: with acute cor pulmonale Chronicity: acute Pulmonary embolism type: unspecified COVID-19 U07.1 HTN (hypertension) I10 HLD (hyperlipidemia) E78.5 Hyperosmolar hyperglycemic state (HHS) E11.00; E11.65 Acute kidney injury N17.9 AMS (altered mental status) R41.82
[2021-04-29] MEDS: dexamethasone 10 mg/mL INJ 6 MG IVP (12:45)
[2021-04-29 13:07] LABS: Glucose Point of Care 147 mg/dL (70-110)
[2021-04-29 13:14] LABS: Thyroid Stimulating Hormone 0.36 uIU/mL (0.27-4.20)
[2021-04-29 13:33] LABS: Glucose Point of Care 149 mg/dL (70-110)
[2021-04-29 14:48] LABS: Cortisol Random 5.31 ug/dL (2.47-19.5)
[2021-04-29 17:05] LABS: Glucose Point of Care 185 mg/dL (70-110)
[2021-04-29 17:08] LABS: Glucose Point of Care 159 mg/dL (70-110)
[2021-04-29] MEDS: docusate sodium 100 mg Capsule PO (17:16)
[2021-04-29] MEDS: polyethylene glycol 3350 Pkt 17 gm PO (17:16)
[2021-04-29] MEDS: nystatin 100,000 unit/mL UDC 5 mL 100000 UNIT PO ×2 (17:16→21:45)
[2021-04-29] MEDS: remdesivir 100 MG in sodium chloride 0.9% (100 ml) 80 ML IV (17:19)
[2021-04-29 18:09] LABS: Glucose Point of Care 181 mg/dL (70-110)
--- NOTE | 2021-04-29 19:19 | PC.NURSE ---
SHift SUmmary: Uneventful shift. Patient rested in bed throughout the day. Mental status is variable but overall more alert than yesterday. Oriented to self only. Can sometimes communicate needs. At the beginning of shift, patient was tachycardic, but became normal sinus after restarting precedex at a low rate.
[2021-04-29 20:00] LABS: Glucose Point of Care 205 mg/dL (70-110)
[2021-04-29 20:06] LABS: Glucose Point of Care 203 mg/dL (70-110)
[2021-04-29 21:39] LABS: Glucose Point of Care 191 mg/dL (70-110)
[2021-04-29 22:33] LABS: Glucose Point of Care 169 mg/dL (70-110)
[2021-04-29] MEDS: dexmedeTOMIDine 0.9 % NaCL 400 MCG/100 ML PREMIX 7.21 MCG IV (22:33)
[2021-04-29 23:58] LABS: Glucose Point of Care 191 mg/dL (70-110)
[2021-04-30] VITALS (97 sets, daily range): BP systolic 84–162; BP diastolic 37–87; PULSE 58–109; RESP 5–32; TEMP 36.8; O2SAT 83–98; BMI 41.3
[2021-04-30] MEDS: vancomycin 1,250 MG/250 ML PIGGYBACK 250 MG IV (00:41)
[2021-04-30 00:52] LABS: Glucose Point of Care 220 mg/dL (70-110)
[2021-04-30 01:30] LABS: Glucose Point of Care 177 mg/dL (70-110)
[2021-04-30 03:06] LABS: Glucose Point of Care 160 mg/dL (70-110)
[2021-04-30] MEDS: aztreonam 2,000 MG in sodium chloride 0.9% (plus) 100 ML 200 MG IV ×3 (03:42→18:50)
[2021-04-30] MEDS: levofloxacin-dextrose 5 % 750 MG/150 ML PREMIX 100 MG IV (03:43)
[2021-04-30 04:38] LABS: Basophils % 0.2 %; Hematocrit 31.6 % (37.0-47.0); Hemoglobin 9.8 g/dL (11.5-15.3); Lymphocytes # 0.7 10^3/uL (0.8-4.8); Lymphocytes % 5.5 %; Mean Corpuscular Hemoglobin 28.5 pg (28.0-34.0); Mean Corpuscular Volume 91.9 fl (81-99); Mean Platelet Volume 12.4 fL (7.4-10.4); Monocytes # 0.7 10^3/uL (0.2-0.9); Monocytes % 5.6 %; Neutrophils # 11.64 10^3/uL (1.8-7.7); Neutrophils % 87.3 %; Nucleated Red Blood Cells % 0.2 %; Platelet Count 93 10^3/cmm (130-400); Red Blood Count 3.44 10^6/uL (4.1-5.3); Red Cell Distribution Width 15.6 % (12.1-15.1); White Blood Count 13.3 10^3/uL (4.0-10.0)
[2021-04-30 04:38] LABS: Glucose Point of Care 162 mg/dL (70-110)
[2021-04-30 04:56] LABS: Glucose Point of Care 173 mg/dL (70-110)
[2021-04-30 05:00] LABS: Alanine Aminotransferase 51 U/L (0-33); Albumin Level 2.3 g/dL (3.5-5.2); Alkaline Phosphatase 94 IU/L (35-105); Anion Gap 13.2 (5-19); Aspartate Amino Transferase 49 U/L (0-32); Blood Urea Nitrogen 41 mg/dL (8-23); C Reactive Protein 39.6 mg/L (0.0-4.9); Calcium 9.5 mg/dL (8.5-10.5); Carbon Dioxide 17 mmol/L (22-29); Chloride 120 mmol/L (98-107); Globulin 1.8 g/dL (1.3-4.6); Glucose 178 mg/dL (65-115); Magnesium 2.4 mg/dL (1.7-2.3); Osmolality Calculated 317 mOsm/kg (285-295); Phosphorus 3.3 mg/dL (2.5-4.5); Potassium 4.2 mmol/L (3.5-5.1); Sodium 146 mmol/L (136-145); Total Bilirubin 0.4 mg/dL (0.15-1.2); Total Protein 4.1 g/dL (6.6-8.7)
[2021-04-30 05:05] LABS: Lactate (Lactic Acid level) 1.6 mmol/L (0.5-2.2)
[2021-04-30 05:09] LABS: NT Pro B Type Natriuretic Pept 694 pg/mL (0-450); Procalcitonin 0.14 ng/mL (0-0.5)
[2021-04-30] MEDS: sodium chloride 0.9% 1,000 ML 50 ML IV (05:12)
[2021-04-30 05:25] LABS: Creatine Phosphokinase 722 U/L (26-192)
--- NOTE | 2021-04-30 05:52 | PC.NURSE ---
Shift Note Frequent safety and comfort rounds continue. Orders and/or nursing care completed as indicated. Patient monitored for response to intervention and treatment(s). Education provided includes oral care. Patient needs reinforcement teaching. Patient had an uneventful shift, she remains on 6LNC and is only oriented to self. Sacral wound is open to air, no other wounds noted at this time. Oral care and frequent turning/repositioning provided routinely throughout shift. Insulin, NS, and Precedex are infusing per protocol please see MAR for infusion rates. Glucerna tube feeding is infusing through NG tube at a rate of 10 mls/hr, no gastric residuals aspirated overnight. Martin catheter drained 500 mls of urine overnight. Will continue to monitor.
[2021-04-30 07:36] LABS: Glucose Point of Care 186 mg/dL (70-110)
[2021-04-30 08:26] LABS: Glucose Point of Care 178 mg/dL (70-110)
[2021-04-30] MEDS: budesonide 0.5 mg/2 mL Neb INHALATION ×2 (08:34→21:11)
[2021-04-30 08:56] LABS: Glucose Point of Care 184 mg/dL (70-110)
[2021-04-30] MEDS: pantoprazole 40 mg SDV IVP (09:58)
[2021-04-30] MEDS: enoxaparin 100 mg/mL Syringe SUBCUT (09:58)
[2021-04-30] MEDS: nystatin 100,000 unit/mL UDC 5 mL 100000 UNIT PO ×4 (09:58→21:25)
[2021-04-30] MEDS: docusate sodium 100 mg Capsule PO (09:59)
[2021-04-30] MEDS: ascorbic acid 500 mg Tablet PO ×2 (09:59→16:26)
[2021-04-30] MEDS: cholecalciferol (vitamin D3) 1,000 unit Tablet 1000 UNIT PO (09:59)
[2021-04-30] MEDS: zinc gluconate 50 mg Tablet PO (09:59)
[2021-04-30 11:44] LABS: Glucose Point of Care 214 mg/dL (70-110)
[2021-04-30] MEDS: insulin lispro 100 unit/1 mL SUBCUT (11:49)
[2021-04-30] MEDS: midodrine 5 mg TABLET 10 MG PO ×2 (11:49→21:24)
--- NOTE | 2021-04-30 15:53 | PC.NURSE ---
stood with pt pericare done noted skin tear on left buttock and large discoloration on right buttock optifoam dressing applied to areas after cleaned daughter at bedside aware ...
--- NOTE | 2021-04-30 15:57 | PC.NURSE ---
transfer to floor at this time
--- NOTE | 2021-04-30 16:16 | P.PN_ITS ---
Subjective Subjective: Interval history: Patient was seen this morning, she is much more alert awake to person, to place, not to time, she recognizes her family was at bedside, she has no complaints, no nausea, no vomiting, continues to have choking spells with oral intake, keeping n.p.o. Patient was titrated off insulin drip, transition to subcu insulin, Levemir, will be moved to general medical floors Vitals/I&O/Wt Last Vital Signs Temp 98.2 F 04/30/21 04:00 Pulse 109 H 04/30/21 14:30 Resp 20 H 04/30/21 14:30 BP 122/60 04/30/21 14:00 Pulse Ox 92 04/30/21 14:30 04/30/21 04/30/21 04/30/21 06:59 14:59 22:59 Intake Total 1792.607 / 2655.670 667.115 / 667.115 Output Total 500 / 1050 Balance 1292.607 / 1605.670 667.115 / 667.115 Weight last 48 hrs Weight 105.857 kg Weight 104.411 kg Physical Exam Const: COMMON NORMALS: no acute distress ORIENTATION/CONSCIOUSNESS: Yes awake, Yes oriented to person and Yes oriented to place; not oriented to time Resp: COMMON NORMALS: normal respiratory effort, No retractions, No use of accessory muscles and clear to auscultation bilaterally AUSCULTATION: clear to auscultation bilaterally Cardio: COMMON NORMALS: regular rate, regular rhythm, S1 normal heart sound present and S2 normal heart sound present RATE: regular rate RHYTHM: regular rhythm HEART SOUNDS: S1 normal heart sound present and S2 normal heart sound present GI: COMMON NORMALS: Normal to inspection, nondistended, normoactive bowel sounds present, Soft to palpation and non-tender PALPATION: Yes Soft to palpation Neuro: SENSORIUM/ORIENTATION: Yes oriented to person, Yes oriented to place and No oriented to time Urinary Catheter Management^: Martin: Cath Placed During This Visit: yes Reason for Continuing Indwelling Catheter: Accurate Measurement of Urinary Outp ut in Critically Ill Patients Urinary Catheter Date of Insertion: 04/26/21 Urinary Catheter Time of Insertion: 01:50 Data : 04/30/21 04:09 04/30/21 04:09 Micro: Microbiology 04/28/21 19:56 Blood Culture - Preliminary Blood NEGATIVE TO DATE 04/28/21 14:59 Blood Culture - Preliminary Blood NEGATIVE TO DATE 04/26/21 12:14 Blood Culture - Preliminary Blood Micrococcus Species A&P Assessment and plan (1) Pulmonary embolism: Status: Acute Qualifiers: Acute cor pulmonale presence: with acute cor pulmonale Chronicity: acute Pulmonary embolism type: unspecified Qualified Code(s): I26.09 - Other pulmonary embolism with acute cor pulmonale (2) COVID-19: Status: Acute (3) HTN (hypertension): Status: Acute (4) HLD (hyperlipidemia): Status: Acute (5) Hyperosmolar hyperglycemic state (HHS): Status: Acute (6) Acute kidney injury: Status: Acute (7) AMS (altered mental status): Status: Acute Additional A&P Information Acute respiratory failure with hypoxia / Acute Saddle PE / COVID-19 Pneumonia Currently on 5 L nasal cannula COVID-19 dx on 04/11, likely COVID-related CTA Chest- Saddle embolism with extensive B/L PE with RV strain Hemodynamically stable Start therapeutic Lovenox TTEcho Normal left ventricular size and systolic function, EF 56 %. No regional wall motion abnormalities. The right ventricle appears to be normal size and ejection fraction There is no definite features of right ventricular strain. Mild tricuspid valve regurgitation. Estimated pulmonary artery peak systolic pressure of 36 mmHg There is no pericardial effusion. No previous study is available for comparison. Technically difficult study because of the poor ultrasonic window Bilateral lower extremity ultrasound venous negative for DVT Currently on therapeutic Lovenox, switch to Eliquis, platelet count has decreased to 93,000 Empirically started on Levaquin 750 mg IV - Renal dosing, MRSA nares negative stop vancomycin, continue aztreonam MRSA nares negative, urine bacterial antigen is within normal limits Continue supplemental 02 - currently 6L Continue remdesivir day 4 of 5 Status post 2 doses of Decadron Maintain MAP in the 65, continue midodrine Off Precedex Vitamin C, zinc, vitamin D Incentive spirometer, flutter valve Droplet Precautions We will moved to general medical floors Lovenox for DVT prophylaxis, Full code Gram-positive bacteremia -Review blood cultures, micrococcus species, likely contamination -Antibiotics as above Leukocytosis Likely due to steroids possible infectious On IV abx as noted above Hyperglycemic Hyperosmolar syndrome Anion gap closed, no oral intake due to altered mental status, continue Levemir, titrated off insulin drip, subcu insulin Hemoglobin A1c 10.9 Likely new-onset DM, stress response Insulin drip per protocol Maintain potassium greater than 3.5, Q1hr BS checks BMP q4hr Nasogastric tube insertion, start tube feeds, Glucerna at 10 cc an hour, free water flushes 100 cc every 4 hours, consult dietary Speech therapy evaluated patient this afternoon, still high risk of aspiration, will reexamine tomorrow, continue feeding for now NSTEMI -Likely supply demand ischemia from acute hypoxic respiratory failure, saddle pulm emboli as above -However cannot rule out underlying cardiac etiology -Aspirin, statin, heparin -Telemetry monitoring -Echo as above Acute kidney injury Likely pre-renal Creatinine 0.9 Off IV fluids BMP in am Renal dosing Rhabdomyolysis, elevated CPK, continue to monitor 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 Neuro checks Statin on hold given rhabdomyolysis Altered mental status Hypoxia, COVID-19, pulmonary emboli, acute respiratory failure, HHS Likely undiagnosed underlying Dementia Acute worsening - etiology multifactorial Head CT - No acute abnormality TSH within normal limits Hypertension Holding home metoprolol/norvasc/irbastartan/HCTZ Hyperlipidemia Lipitor on hold DVT ppx On therapeutic Lovenox, transition to Eliquis No SCDS Attestations Medical Necessity Statement*: Patient requires hospitalization for HHS, saddle pulmonary emboli, gram-positive bacteremia, pneumonia, COVID-19, NSTEMI, rhabdo, critical care time spent over 35 minutes Coding Level of Care Code Acute Mushroom Cultivator for [facility] Fwd Diagnoses Pulmonary embolism I26.09 Acute cor pulmonale presence: with acute cor pulmonale Chronicity: acute Pulmonary embolism type: unspecified COVID-19 U07.1 HTN (hypertension) I10 HLD (hyperlipidemia) E78.5 Hyperosmolar hyperglycemic state (HHS) E11.00; E11.65 Acute kidney injury N17.9 AMS (altered mental status) R41.82
[2021-04-30] MEDS: acetaminophen 325 mg Tablet 650 MG PO ×2 (16:26→22:54)
[2021-04-30] MEDS: ipratropium-albuterol 3 mL Neb INHALATION (21:11)
[2021-04-30 21:15] LABS: Glucose Point of Care 146 mg/dL (70-110)
[2021-04-30] MEDS: apixaban 5 mg Tablet 10 MG PO (21:24)
[2021-04-30] MEDS: remdesivir 100 MG in sodium chloride 0.9% (100 ml) 80 ML IV (21:24)
[2021-04-30 23:04] LABS: Glucose Point of Care 137 mg/dL (70-110)
[2021-05-01] VITALS (13 sets, daily range): BP systolic 98–131; BP diastolic 62–88; PULSE 69–114; RESP 15–21; TEMP 36.5–37.1; O2SAT 60–100
[2021-05-01] MEDS: aztreonam 2,000 MG in sodium chloride 0.9% (plus) 100 ML 200 MG IV ×2 (01:52→10:09)
[2021-05-01] MEDS: levofloxacin-dextrose 5 % 750 MG/150 ML PREMIX 100 MG IV (03:16)
[2021-05-01] MEDS: acetaminophen 325 mg Tablet 650 MG PO (06:22)
[2021-05-01] MEDS: midodrine 5 mg TABLET 10 MG PO ×3 (06:22→21:54)
[2021-05-01] MEDS: ipratropium-albuterol 3 mL Neb INHALATION (08:30)
[2021-05-01] MEDS: budesonide 0.5 mg/2 mL Neb INHALATION ×2 (08:30→19:55)
[2021-05-01] MEDS: allopurinol 300 mg Tablet PO (09:47)
[2021-05-01] MEDS: zinc gluconate 50 mg Tablet PO (09:47)
[2021-05-01] MEDS: apixaban 5 mg Tablet 10 MG PO ×2 (09:47→21:54)
[2021-05-01] MEDS: docusate sodium 100 mg Capsule PO (09:47)
[2021-05-01] MEDS: ascorbic acid 500 mg Tablet PO (09:47)
[2021-05-01] MEDS: cholecalciferol (vitamin D3) 1,000 unit Tablet 1000 UNIT PO (09:47)
[2021-05-01] MEDS: pantoprazole 40 mg SDV IVP (09:57)
[2021-05-01] MEDS: nystatin 100,000 unit/mL UDC 5 mL 100000 UNIT PO ×4 (09:57→21:54)
[2021-05-01] MEDS: insulin lispro 100 unit/1 mL SUBCUT (10:09)
[2021-05-01 10:23] LABS: Glucose Point of Care 157 mg/dL (70-110)
[2021-05-01 12:31] LABS: Basophils % 0.2 %; Eosinophils % 0.1 %; Hematocrit 31.1 % (37.0-47.0); Hemoglobin 10.2 g/dL (11.5-15.3); Lymphocytes % 7.9 %; Mean Corpuscular HGB Conc 32.8 g/dL (30.0-36.0); Mean Corpuscular Hemoglobin 28.9 pg (28.0-34.0); Mean Corpuscular Volume 88.1 fl (81-99); Mean Platelet Volume 12.3 fL (7.4-10.4); Monocytes # 0.7 10^3/uL (0.2-0.9); Monocytes % 5.9 %; Neutrophils # 10.24 10^3/uL (1.8-7.7); Neutrophils % 83.1 %; Nucleated Red Blood Cells # 0.1 /100WBC; Nucleated Red Blood Cells % 0.7 %; Platelet Count 131 10^3/cmm (130-400); Red Blood Count 3.53 10^6/uL (4.1-5.3); Red Cell Distribution Width 16.3 % (12.1-15.1); White Blood Count 12.3 10^3/uL (4.0-10.0)
[2021-05-01 13:32] LABS: Glucose Point of Care 127 mg/dL (70-110)
--- NOTE | 2021-05-01 15:49 | P.PN_ITS ---
Subjective Subjective: Interval history: Doris denies any complaints currently. Nephew is with her, who relates she wants changed to a DNR. He reports he and her have come to this decision. He still wants her otherwise aggressively treated. They realize she may require skilled care, and possibly a PEG tube. Medications: Reviewed: Yes Vitals/I&O/Wt Last Vital Signs Temp 98.6 F 05/01/21 13:16 Pulse 98 05/01/21 13:16 Resp 18 05/01/21 13:16 BP 111/74 05/01/21 13:16 Pulse Ox 94 05/01/21 13:16 05/01/21 05/01/21 05/01/21 06:59 14:59 22:59 Intake Total 300 / 1167.115 100 / 100 Output Total 1200 / 1200 Balance -900 / -32.885 100 / 100 Weight last 48 hrs Weight 106.957 kg Weight 105.857 kg Physical Exam Narrative: EXAM NARRATIVE: General exam is weak appearing female, no distress HEENT: NG in place Neck is supple Cardiovascular regular rate and rhythm, no murmur Lungs clear with diminished breath sounds. Abdomen is soft. Bowel sounds noted. Extremities no cyanosis clubbing or edema Urinary Catheter Management^: Martin: Cath Placed During This Visit: yes Reason for Continuing Indwelling Catheter: Acute Urinary Retention or Obstruction Urinary Catheter Date of Insertion: 04/26/21 Urinary Catheter Time of Insertion: 01:50 Data : 05/01/21 12:15 04/30/21 04:09 Micro: Microbiology 04/26/21 12:14 Blood Culture - Final Blood Micrococcus Species 04/26/21 09:15 Blood Culture - Final Blood NO GROWTH AFTER 5 DAYS A&P Assessment and plan (1) Pulmonary embolism: Currently on Eliquis, 10 mg twice daily, started on the . Will need 1 week of this prior to going to 5 mg twice daily. Had saddle pulmonary embolism on admission Echocardiogram did not demonstrate strain. EF was preserved. Lower extremity Doppler negative for DVT Status: Acute Qualifiers: Acute cor pulmonale presence: with acute cor pulmonale Chronicity: acute Pulmonary embolism type: unspecified Qualified Code(s): I26.09 - Other pulmonary embolism with acute cor pulmonale (2) COVID-19: Severe COVID, associated with severe debilitation and weakness. Still on 5 L of oxygen per nasal cannula. Currently on Levaquin, aztreonam. Discontinue aztreonam. Has completed remdesivir Status: Acute (3) HTN (hypertension): Stable Status: Acute (4) HLD (hyperlipidemia): Status: Acute (5) Hyperosmolar hyperglycemic state (HHS): Resolved Secondary to diabetes, sliding scale insulin, Levemir 10 units every 12 hours Status: Acute (6) Acute kidney injury: Resolved Status: Acute (7) AMS (altered mental status): Improving daily Head CT negative for acute abnormality Likely has underlying dementia Status: Acute Additional A&P Information Dysphagia. Speech therapy evaluating. Currently being fed through NG. Increase tube feeds to 20 cc an hour. Rhabdomyolysis, resolved Changed to allow natural . Eliquis will suffice for DVT prophylaxis. Will need rehabilitation. Attestations Medical Necessity Statement*: Needs continued hospitalization for close monitoring secondary to severe COVID-19 pneumonia. Coding Level of Care Code Acute Orthopedics Pediatric Physician for [facility] Fwd Diagnoses Pulmonary embolism I26.09 Acute cor pulmonale presence: with acute cor pulmonale Chronicity: acute Pulmonary embolism type: unspecified COVID-19 U07.1 HTN (hypertension) I10 HLD (hyperlipidemia) E78.5 Hyperosmolar hyperglycemic state (HHS) E11.00; E11.65 Acute kidney injury N17.9 AMS (altered mental status) R41.82
[2021-05-01 17:41] LABS: Glucose Point of Care 125 mg/dL (70-110)
--- NOTE | 2021-05-01 19:47 | PC.NURSE ---
i reported to nurse high pulse 114
[2021-05-01 21:32] LABS: Glucose Point of Care 149 mg/dL (70-110)
[2021-05-02] VITALS (14 sets, daily range): BP systolic 83–128; BP diastolic 56–79; PULSE 60–112; RESP 16–28; TEMP 36.8–37.4; O2SAT 90–94
--- NOTE | 2021-05-02 00:38 | PC.NURSE ---
i reported high pulse 108 to nurse
[2021-05-02] MEDS: levofloxacin-dextrose 5 % 750 MG/150 ML PREMIX 100 MG IV (05:28)
[2021-05-02] MEDS: midodrine 5 mg TABLET 10 MG PO ×2 (05:29→17:07)
[2021-05-02 07:54] LABS: Glucose Point of Care 184 mg/dL (70-110)
[2021-05-02] MEDS: pantoprazole 40 mg SDV IVP (08:39)
[2021-05-02] MEDS: allopurinol 300 mg Tablet PO (08:39)
[2021-05-02] MEDS: insulin lispro 100 unit/1 mL SUBCUT ×3 (08:39→18:08)
[2021-05-02] MEDS: apixaban 5 mg Tablet 10 MG PO (08:39)
[2021-05-02] MEDS: nystatin 100,000 unit/mL UDC 5 mL 100000 UNIT PO ×4 (08:39→21:40)
[2021-05-02] MEDS: cholecalciferol (vitamin D3) 1,000 unit Tablet 1000 UNIT PO (08:40)
[2021-05-02] MEDS: docusate sodium 100 mg Capsule PO ×2 (08:40→17:07)
[2021-05-02 11:35] LABS: Basophils % 0.3 %; Eosinophils % 0.1 %; Hematocrit 30.4 % (37.0-47.0); Hemoglobin 9.7 g/dL (11.5-15.3); Lymphocytes # 0.8 10^3/uL (0.8-4.8); Lymphocytes % 8.6 %; Mean Corpuscular HGB Conc 31.9 g/dL (30.0-36.0); Mean Corpuscular Hemoglobin 29.4 pg (28.0-34.0); Mean Corpuscular Volume 92.1 fl (81-99); Mean Platelet Volume 11.3 fL (7.4-10.4); Monocytes # 0.4 10^3/uL (0.2-0.9); Neutrophils # 7.44 10^3/uL (1.8-7.7); Neutrophils % 85.3 %; Nucleated Red Blood Cells # 0.2 /100WBC; Nucleated Red Blood Cells % 1.8 %; Platelet Count 117 10^3/cmm (130-400); Red Cell Distribution Width 16.9 % (12.1-15.1); White Blood Count 8.7 10^3/uL (4.0-10.0)
[2021-05-02 11:56] LABS: Alanine Aminotransferase 44 U/L (0-33); Albumin Level 2.1 g/dL (3.5-5.2); Alkaline Phosphatase 100 IU/L (35-105); Anion Gap 15.3 (5-19); Aspartate Amino Transferase 39 U/L (0-32); Blood Urea Nitrogen 45 mg/dL (8-23); Calcium 10.4 mg/dL (8.5-10.5); Carbon Dioxide 14 mmol/L (22-29); Chloride 122 mmol/L (98-107); Globulin 2.2 g/dL (1.3-4.6); Glucose 184 mg/dL (65-115); Magnesium 2.4 mg/dL (1.7-2.3); Osmolality Calculated 320 mOsm/kg (285-295); Potassium 4.3 mmol/L (3.5-5.1); Sodium 147 mmol/L (136-145); Total Bilirubin 0.5 mg/dL (0.15-1.2); Total Protein 4.3 g/dL (6.6-8.7)
--- NOTE | 2021-05-02 12:00 | PC.NURSE ---
per Dr. Connell hold levemir while tube feeds are being held.
--- NOTE | 2021-05-02 12:06 | PC.NURSE ---
I reported the low bp to the nurse
[2021-05-02 12:56] LABS: Glucose Point of Care 189 mg/dL (70-110)
--- NOTE | 2021-05-02 13:37 | PM.PN ---
Subjective Subjective: Interval history: Opens eyes to verbal stimuli, but does not seem to want to carry on much of a conversation today. Medications: Reviewed: Yes Vitals/I&O/Wt Last Vital Signs Temp 99.1 F 05/02/21 12:00 Pulse 102 H 05/02/21 12:00 Resp 18 05/02/21 12:00 BP 115/70 05/02/21 13:04 Pulse Ox 93 05/02/21 12:00 05/01/21 05/02/21 05/02/21 22:59 06:59 14:59 Intake Total 150 / 150 Output Total 1000 / 1000 Balance -1000 / -900 150 / 150 Weight last 48 hrs Weight 106.957 kg Physical Exam Narrative: EXAM NARRATIVE: General exam is weak appearing female, with upper airway congestion, no distress. Obviously confused. HEENT: NG in place Neck is supple Cardiovascular regular rate and rhythm, no murmur Lungs clear with diminished breath sounds. Abdomen is soft. Bowel sounds noted. Extremities no cyanosis clubbing or edema Urinary Catheter Management^: Martin: Cath Placed During This Visit: yes Reason for Continuing Indwelling Catheter: Assist Healing of Perineal & Sacral Wounds- Incontinent Patients Urinary Catheter Date of Insertion: 04/26/21 Urinary Catheter Time of Insertion: 01:50 Data : 05/02/21 11:18 05/02/21 11:18 Micro: Microbiology 04/26/21 12:14 Blood Culture - Final Blood Micrococcus Species 04/26/21 09:15 Blood Culture - Final Blood NO GROWTH AFTER 5 DAYS A&P Assessment and plan (1) Pulmonary embolism: Currently on Eliquis, 10 mg twice daily, started on the . Will need 1 week of this prior to going to 5 mg twice daily. Has she had appears to need a PEG tube will hold Eliquis. Initiate Lovenox tonight. Had saddle pulmonary embolism on admission Echocardiogram did not demonstrate strain. EF was preserved. Lower extremity Doppler negative for DVT Status: Acute Qualifiers: Acute cor pulmonale presence: with acute cor pulmonale Chronicity: acute Pulmonary embolism type: unspecified Qualified Code(s): I26.09 - Other pulmonary embolism with acute cor pulmonale (2) COVID-19: Severe COVID, associated with severe debilitation and weakness. Now on 3L of oxygen per nasal cannula. Currently on Levaquin Has completed remdesivir Status: Acute (3) HTN (hypertension): Stable Status: Acute (4) HLD (hyperlipidemia): Status: Acute (5) Hyperosmolar hyperglycemic state (HHS): Resolved Secondary to diabetes, sliding scale insulin, Levemir 10 units every 12 hours Status: Acute (6) Acute kidney injury: Resolved Status: Acute (7) AMS (altered mental status): Improving daily Head CT negative for acute abnormality Likely has underlying dementia Status: Acute Additional A&P Information Dysphagia. Speech therapy evaluating. Currently being fed through NG. She has quite a bit more upper airway congestion today. Discontinue feedings, check NG placement. Surgery consult for possible PEG. Discontinue Eliquis as above and started on Lovenox Rhabdomyolysis, resolved Changed to allow natural . Lovenox will suffice for DVT prophylaxis. Will need rehabilitation. Prognosis guarded Attestations Medical Necessity Statement*: Needs continued hospitalization secondary to severe COVID, with weakness, and pulmonary embolism. Coding Level of Care Code Acute Manager Of Software Development for [facility] Diagnoses Pulmonary embolism I26.09 Acute cor pulmonale presence: with acute cor pulmonale Chronicity: acute Pulmonary embolism type: unspecified COVID-19 U07.1 HTN (hypertension) I10 HLD (hyperlipidemia) E78.5 Hyperosmolar hyperglycemic state (HHS) E11.00; E11.65 Acute kidney injury N17.9 AMS (altered mental status) R41.82
[2021-05-02] MEDS: ipratropium-albuterol 3 mL Neb INHALATION ×2 (14:00→20:19)
--- NOTE | 2021-05-02 14:01 | PC.PT ---
Patient minimally responsive today per PT conversation with nursing and [facility] [employer]. Patient required mod-max assist yesterday with sitting at edge of bed. Will plan to re-assess tomorrow.
--- NOTE | 2021-05-02 15:22 | XRR_ITS ---
PROCEDURE INFORMATION: Exam: XR Chest Exam date and time: 05/02/2021 3:22 PM Age: 80 years old Clinical indication: Device placement; Ng tube; Additional info: Check ng placement, cough, congestion TECHNIQUE: Imaging protocol: XR of the chest. Views: 1 view. COMPARISON: CR XR chest 1V portable [id number] 04/28/2021 10:45 AM FINDINGS: Tubes, catheters and devices: Distal fenestration of the NG tube is positioned in the left upper quadrant in the expected location of the stomach fundus. The distal tip is not visualized. Lungs: Bilateral airspace opacities are stable from the prior study. Pleural spaces: Unremarkable. No pleural effusion. No pneumothorax. Heart/Mediastinum: Unremarkable. No cardiomegaly. Bones/joints: Unremarkable. XR/XR chest 1V portable [id number] IMPRESSION: 1. Distal fenestration of the NG tube is positioned in the left upper quadrant in the expected location of the stomach fundus. The distal tip is not visualized. 2. Bilateral airspace opacities are stable from the prior study.
[2021-05-02] MEDS: enoxaparin 120 mg/0.8 mL Syringe 110 MG SUBCUT (17:07)
[2021-05-02] MEDS: dextrose 5%-sod chloride 0.45% 1,000 ML 75 ML IV (18:15)
--- NOTE | 2021-05-02 19:22 | PC.NURSE ---
i reported high pulse 106 and high reps 20 to nurse
[2021-05-02] MEDS: budesonide 0.5 mg/2 mL Neb INHALATION (20:19)
[2021-05-02 20:51] LABS: Glucose Point of Care 147 mg/dL (70-110)
[2021-05-02] MEDS: acetaminophen 325 mg Tablet 650 MG PO (23:48)
[2021-05-03] VITALS (15 sets, daily range): BP systolic 130–174; BP diastolic 70–83; PULSE 84–111; RESP 18–28; TEMP 37.4–37.9; O2SAT 88–96
--- NOTE | 2021-05-03 00:11 | PC.NURSE ---
i reported high temp 100.3 and high pulse 105 and high reps 20 to nurse
[2021-05-03] MEDS: midodrine 5 mg TABLET 10 MG PO (00:33)
[2021-05-03] MEDS: ipratropium-albuterol 3 mL Neb INHALATION ×4 (02:17→21:33)
[2021-05-03] MEDS: levofloxacin-dextrose 5 % 750 MG/150 ML PREMIX 100 MG IV (03:20)
--- NOTE | 2021-05-03 04:42 | PC.NURSE ---
i reported high pulse 102 and high reps 20 to nurse
[2021-05-03] MEDS: enoxaparin 120 mg/0.8 mL Syringe 110 MG SUBCUT ×2 (05:05→18:44)
[2021-05-03 06:26] LABS: Glucose Point of Care 211 mg/dL (70-110)
[2021-05-03] MEDS: budesonide 0.5 mg/2 mL Neb INHALATION ×2 (08:25→21:33)
[2021-05-03 10:56] LABS: Basophils % 0.2 %; Eosinophils % 0.2 %; Hematocrit 29.5 % (37.0-47.0); Hemoglobin 9.4 g/dL (11.5-15.3); Lymphocytes # 0.9 10^3/uL (0.8-4.8); Lymphocytes % 9.7 %; Mean Corpuscular HGB Conc 31.9 g/dL (30.0-36.0); Mean Platelet Volume 11.9 fL (7.4-10.4); Monocytes # 0.3 10^3/uL (0.2-0.9); Monocytes % 2.8 %; Neutrophils % 85.4 %; Nucleated Red Blood Cells # 0.2 /100WBC; Nucleated Red Blood Cells % 1.8 %; Platelet Count 128 10^3/cmm (130-400); Red Blood Count 3.24 10^6/uL (4.1-5.3); Red Cell Distribution Width 17.2 % (12.1-15.1)
[2021-05-03 11:18] LABS: Anion Gap 16.1 (5-19); Blood Urea Nitrogen 40 mg/dL (8-23); Calcium 9.1 mg/dL (8.5-10.5); Carbon Dioxide 14 mmol/L (22-29); Chloride 122 mmol/L (98-107); Glucose 217 mg/dL (65-115); Osmolality Calculated 322 mOsm/kg (285-295); Potassium 4.1 mmol/L (3.5-5.1); Sodium 148 mmol/L (136-145)
[2021-05-03] MEDS: allopurinol 300 mg Tablet PO (12:23)
[2021-05-03] MEDS: docusate sodium 100 mg Capsule PO ×2 (12:23→18:44)
[2021-05-03] MEDS: cholecalciferol (vitamin D3) 1,000 unit Tablet 1000 UNIT PO (12:23)
[2021-05-03] MEDS: pantoprazole 40 mg SDV IVP (12:23)
[2021-05-03] MEDS: polyethylene glycol 3350 Pkt 17 gm PO ×2 (12:23→18:44)
[2021-05-03 12:30] LABS: Glucose Point of Care 219 mg/dL (70-110)
[2021-05-03] MEDS: nystatin 100,000 unit/mL UDC 5 mL 100000 UNIT PO ×3 (12:51→20:17)
[2021-05-03] MEDS: insulin lispro 100 unit/1 mL SUBCUT ×2 (12:58→18:55)
--- NOTE | 2021-05-03 13:16 | P.PN_ITS ---
Subjective Subjective: Interval history: Doris is difficult to understand this morning, but alert and follows directions. PEG tube is planned for tomorrow Medications: Reviewed: Yes Vitals/I&O/Wt Last Vital Signs Temp 99.3 F 05/03/21 08:00 Pulse 107 H 05/03/21 11:59 Resp 28 H 05/03/21 11:59 BP 157/83 05/03/21 11:59 Pulse Ox 96 05/03/21 11:59 05/02/21 05/03/21 05/03/21 22:59 06:59 14:59 Intake Total 150 / 300 Output Total 600 / 600 400 / 1000 Balance -600 / -450 -250 / -700 Physical Exam Narrative: EXAM NARRATIVE: General exam is weak appearing female, with upper airway congestion, no distress. Obviously confused. HEENT: NG in place Neck is supple Cardiovascular regular rate and rhythm, no murmur Lungs clear with diminished breath sounds. Abdomen is soft. Bowel sounds noted. Extremities no cyanosis clubbing or edema Urinary Catheter Management^: Martin: Cath Placed During This Visit: yes Reason for Continuing Indwelling Catheter: Acute Urinary Retention or Obstructi on Urinary Catheter Date of Insertion: 04/26/21 Urinary Catheter Time of Insertion: 01:50 Data : 05/03/21 10:38 05/03/21 10:38 Micro: Microbiology 05/03/21 10:38 Blood Culture - Preliminary Blood SPECIMEN COLLECTED 05/03/21 10:44 Blood Culture - Preliminary Blood SPECIMEN COLLECTED A&P Assessment and plan (1) Pulmonary embolism: Converted to Lovenox. After PEG tube is placed will change back to Eliquis Had saddle pulmonary embolism on admission Echocardiogram did not demonstrate strain. EF was preserved. Lower extremity Doppler negative for DVT Status: Acute Qualifiers: Acute cor pulmonale presence: with acute cor pulmonale Chronicity: acute Pulmonary embolism type: unspecified Qualified Code(s): I26.09 - Other pulmonary embolism with acute cor pulmonale (2) COVID-19: Severe COVID, associated with severe debilitation and weakness. Now on 4L of oxygen per nasal cannula. Currently on Levaquin Has completed remdesivir Status: Acute (3) HTN (hypertension): Stable Status: Acute (4) HLD (hyperlipidemia): Status: Acute (5) Hyperosmolar hyperglycemic state (HHS): Resolved Secondary to diabetes, sliding scale insulin, Levemir 10 units every 12 hours Status: Acute (6) Acute kidney injury: Resolved Status: Acute (7) AMS (altered mental status): Stagnated currently. Head CT negative for acute abnormality Likely has underlying dementia Status: Acute Additional A&P Information Dysphagia. Not improved. PEG tube for tomorrow. Rhabdomyolysis, resolved Elevated temperature. Continue Levaquin. Blood cultures obtained. Chest x-ray no change in infiltrate. Urinalysis will also be obtained. Hypernatremia. Change to D5W at 50 cc an hour. No tube feeding diet currently as PEG tube is intended for tomorrow morning. She has been made NPO. Allow natural . Lovenox will suffice for DVT prophylaxis. Will need rehabilitation. Prognosis guarded Attestations Medical Necessity Statement*: Needs continued hospitalization secondary to severe Covid, support now with severe weakness and dysphagia requiring PEG tube placement. Coding Level of Care Code Acute Orthopaedic Surgeon for [facility] Diagnoses Pulmonary embolism I26.09 Acute cor pulmonale presence: with acute cor pulmonale Chronicity: acute Pulmonary embolism type: unspecified COVID-19 U07.1 HTN (hypertension) I10 HLD (hyperlipidemia) E78.5 Hyperosmolar hyperglycemic state (HHS) E11.00; E11.65 Acute kidney injury N17.9 AMS (altered mental status) R41.82
--- NOTE | 2021-05-03 14:30 | PC.SOCIAL ---
IMM Update pg 2 of IMM updated and reviewed w/ patients nephew & DPOA Esteban. Copy provided and signed copy in chart.
[2021-05-03 14:41] LABS: Bilirubin Urine Neg (Negative); Blood Urine 2+ (Negative); Glucose Urine UA Norm (Normal); Ketones Urine Negative (Negative); Leukocyte Esterase Urine Negative (Negative); Nitrate Urine Negative (Negative); Protein Urine Neg (Negative); Specific Gravity, Urine 1.025 (1.005-1.030); Urine Appearance Clear (CLEAR); Urine Color Yellow (Yellow); Urobilinogen Urine Norm (Negative); pH Urine 5 (5-7)
[2021-05-03 14:42] LABS: RBC Urine 0-4 /hpf (0-2); Squamous Epithelial Cell Urine RARE /hpf (0-5); WBC Urine RARE /hpf (0-5)
[2021-05-03 14:43] LABS: Add Urine Culture? No; Bacteria Urine 1+ /hpf; Calcium Oxalate Crystals Urine 0-4 /hpf
[2021-05-03 18:29] LABS: Glucose Point of Care 203 mg/dL (70-110)
[2021-05-03] MEDS: sodium bicarbonate 650 mg Tablet G-TUBE (18:45)
[2021-05-03] MEDS: dextrose 5% 1,000 ML 50 ML IV (18:45)
[2021-05-03 21:33] LABS: Glucose Point of Care 155 mg/dL (70-110)
--- NOTE | 2021-05-03 21:54 | PC.NURSE ---
i reported high temp 100.2 and high pulse 109
[2021-05-03] MEDS: acetaminophen 325 mg Tablet 650 MG PO (23:20)
[2021-05-04] VITALS (19 sets, daily range): BP systolic 100–179; BP diastolic 56–80; PULSE 79–104; RESP 16–32; TEMP 36.1–37.7; O2SAT 84–99
--- NOTE | 2021-05-04 00:05 | PC.NURSE ---
i reported high pulse 103 to nurse
[2021-05-04] MEDS: ipratropium-albuterol 3 mL Neb INHALATION ×3 (02:37→19:35)
--- NOTE | 2021-05-04 05:42 | PC.NURSE ---
i reported high temp 99.9 and high pulse 104 to nurse
[2021-05-04 06:29] LABS: Anion Gap 13.9 (5-19); Blood Urea Nitrogen 34 mg/dL (8-23); Calcium 10.3 mg/dL (8.5-10.5); Carbon Dioxide 15 mmol/L (22-29); Chloride 123 mmol/L (98-107); Glucose 99 mg/dL (65-115); Osmolality Calculated 314 mOsm/kg (285-295); Potassium 3.9 mmol/L (3.5-5.1); Sodium 148 mmol/L (136-145)
[2021-05-04 06:38] LABS: Glucose Point of Care 103 mg/dL (70-110)
[2021-05-04] MEDS: pantoprazole 40 mg SDV IVP (07:42)
[2021-05-04] MEDS: budesonide 0.5 mg/2 mL Neb INHALATION ×2 (10:27→19:35)
--- NOTE | 2021-05-04 11:20 | PC.NURSE ---
patient taken to GI lab via bed
--- NOTE | 2021-05-04 11:22 | P.CONIM_ITS ---
Providers/Reason For Consult Consulting Physician/Specialty*: Dr. Connell Reason for Consult*: PEG placement Attending Physician: Quirino Connell MD Primary Care Provider: Rachele Tang APN History of Present Illness History of Present Illness Doris Arguello is a 80 year old female who was presented to the emergency room with altered mental status and was noted to have a saddle PE. Patient couldn't be transferred to tertiary center for catheter embolectomy and therefore she was treated with anticoagulation. Patient is awake but unable to communicate and she has been unable to tolerate oral intake with concerns for aspiration and therefore I was consulted for placement of a feeding tube. As per chart no evidence of prior gastric surgery Review of Systems Narrative: Review of systems not obtained due to patient's mental status Medications/Allergies Home Medications Medication Instructions Recorded Confirmed Last Taken Type Vitamin D3 1 tab PO DAILY 12/09/20 04/25/21 04/24/21 History allopurinol 300 mg tablet 300 mg PO DAILY 12/09/20 04/25/21 04/25/21 History amlodipine 2.5 mg tablet 2.5 mg PO TID 12/09/20 04/25/21 04/25/21 History ascorbic acid (vitamin C) 100 mg 100 mg PO DAILY 12/09/20 04/25/21 04/24/21 History tablet (Vitamin C) atorvastatin 20 mg tablet 20 mg PO DAILY 12/09/20 04/25/21 04/24/21 History cetirizine 10 mg tablet (Zyrtec) 10 mg PO DAILY PRN 12/09/20 04/25/21 04/10/21 History irbesartan 300 1 tab PO DAILY 12/09/20 04/25/21 04/25/21 History mg-hydrochlorothiazide 12.5 mg tablet levomilnacipran 20 mg capsule,24 20 mg PO DAILY 12/09/20 04/25/21 04/25/21 History hr,extended release (Fetzima) lorazepam 0.5 mg tablet 0.5 - 1 mg PO QID PRN 12/09/20 04/25/21 04/10/21 History metoprolol succinate 100 mg 100 mg PO DAILY 12/09/20 04/25/21 04/25/21 History tablet,extended release 24 hr trazodone 50 mg tablet 50 - 100 mg PO BEDTIME 12/09/20 04/25/2104/24/22 History zinc 50 mg tablet 50 mg PO DAILY 12/09/20 04/25/21 04/25/21 History cyanocobalamin (vitamin B-12) 1,000 mcg IM Q30D 04/25/21 04/25/21 Unknown History 1,000 mcg/mL injection solution guaifenesin 600 mg tablet, 600 mg PO Q12H PRN 04/25/21 04/25/21 Unknown History extended release 12 hr (Mucinex) levofloxacin 500 mg tablet 500 mg PO BID MDD SEE PHARMACY 04/25/21 04/25/21 04/25/21 History COMMENT tramadol 50 mg tablet 50 mg PO BID PRN 04/25/21 04/25/21 Unknown History Allergies Allergy/AdvReac Type Severity Reaction Status Date / Time Penicillins Allergy ALGY-Swell Verified 04/12/21 11:36 Lip/Tongue/Throat Current Medications Generic Name Dose Route Start Last Admin Trade Name Freq PRN Reason Stop Dose Admin Acetaminophen 650 mg 04/26/21 01:21 05/03/21 23:20 Acetaminophen 325 Mg Tablet PO 650 mg Q6H PRN Administration MILD PAIN Albuterol/Ipratropium 3 ml 05/02/21 11:45 05/04/21 10:28 Ipratropium-Albuterol 3 Ml Neb INHALATION 3 ml Q6H.RESPIRATORY QUINCY Administration Allopurinol 300 mg 05/01/21 09:00 05/04/21 10:24 Allopurinol 300 Mg Tablet PO Not Given DAILY QUINCY Budesonide 0.5 mg 04/26/21 20:00 05/04/21 10:27 Budesonide 0.5 Mg/2 Ml Neb INHALATION 0.5 mg BID.RESPIRATORY QUINCY Administration Docusate Sodium 100 mg 04/29/21 09:30 05/04/21 10:25 Docusate Sodium 100 Mg Capsule PO Not Given BID QUINCY Enoxaparin Sodium 110 mg 05/02/21 18:00 05/03/21 18:44 Enoxaparin 120 Mg/0.8 Ml Syringe SUBCUT 110 mg Q12H QUINCY Administration Dextrose 1,000 mls @ 75 mls/hr 05/03/21 13:30 05/04/21 09:10 D5w IV 75 mls/hr .[id number] QUINCY Infusion Insulin Detemir 10 unit 04/29/21 10:00 05/03/21 21:29 Insulin Detemir 100 Units/1 Ml SUBCUT 10 unit Q12H QUINCY Administration Insulin Human Lispro 0 unit 04/30/21 12:00 05/04/21 07:14 Insulin Lispro 100 Unit/1 Ml SUBCUT Not Given [facility] Protocol Nystatin 100,000 unit 04/29/21 17:00 05/04/21 10:25 Nystatin 100,000 Unit/Ml Udc 5 Ml PO Not Given QID QUINCY Pantoprazole Sodium 40 mg 04/26/21 09:00 05/04/21 07:42 Pantoprazole 40 Mg Sdv IVP 40 mg DAILY QUINCY Administration Polyethylene Glycol 17 gm 04/29/21 09:30 05/04/21 10:25 Polyethylene Glycol 3350 Pkt 17 Gm PO Not Given BID QUINCY Sodium Bicarbonate 650 mg 05/03/21 18:00 05/04/21 10:25 Sodium Bicarbonate 650 Mg Tablet G-TUBE Not Given BID QUINCY Vitamin D 1,000 unit 04/27/21 09:00 05/04/21 10:24 Cholecalciferol (Vitamin D3) 1,000 Unit Tablet PO Not Given DAILY QUINCY PFSH Acute PFSH: Medical History (Updated 04/26/21 @ 03:31 by Zachary Mason MD) COVID-19 HLD (hyperlipidemia) HTN (hypertension) Surgical History (Updated 04/15/21 @ 20:33 by David Low MD) No significant past surgical history Social History Alcohol intake: never Vitals/I&O/Wt Last Vital Signs Temp 98.6 F 05/04/21 08:00 Pulse 91 05/04/21 10:34 Resp 18 05/04/21 10:34 BP 138/75 05/04/21 08:00 Pulse Ox 95 05/04/21 10:34 05/03/21 05/04/21 05/04/21 22:59 06:59 14:59 Intake Total 100 / 825 100 / 825 820.833 / 820.833 Output Total 500 / 750 250 / 750 150 / 150 Balance -400 / 75 -150 / 75 670.833 / 670.833 Physical Exam Narrative: EXAM NARRATIVE: HEENT: Normocephalic Eye: Sclera /conjunctiva normal Abdomen: Soft to palpation Neurological: Awake, unable to communicate Skin: Intact, no lesions appreciated on gross exam Urinary Catheter Management: Martin: Cath Placed During This Visit: yes Reason for Continuing Indwelling Catheter: Assist Healing of Perineal & Sacral Wounds- Incontinent Patients Urinary Catheter Date of Insertion: 04/26/21 Urinary Catheter Time of Insertion: 01:50 Data : 05/03/21 10:38 05/04/21 04:52 Micro: Microbiology 05/03/21 10:38 Blood Culture - Preliminary Blood NEGATIVE TO DATE 05/03/21 10:44 Blood Culture - Preliminary Blood NEGATIVE TO DATE 04/28/21 19:56 Blood Culture - Final Blood NO GROWTH AFTER 5 DAYS 04/28/21 14:59 Blood Culture - Final Blood NO GROWTH AFTER 5 DAYS A&P Assessment and plan (1) AMS (altered mental status): 80-year-old female with altered mental status and PE who requires enteral access for nutrition. Plan for PEG placement under MAC Status: Acute (2) Pulmonary embolism: Hold a.m. dose of Lovenox for today Status: Acute Qualifiers: Acute cor pulmonale presence: with acute cor pulmonale Chronicity: acute Pulmonary embolism type: unspecified Qualified Code(s): I26.09 - Other pulmonary embolism with acute cor pulmonale Coding Level of Care Code Acute Climatologist for [facility] Fwd Diagnoses AMS (altered mental status) R41.82 Pulmonary embolism I26.09 Acute cor pulmonale presence: with acute cor pulmonale Chronicity: acute Pulmonary embolism type: unspecified
[2021-05-04] MEDS: sodium chloride 0.9% 1,000 ML 30 ML IV (11:45)
--- NOTE | 2021-05-04 12:19 | PM.OP ---
Operative Report Date of procedure: May 04, 2021 Pre-op diagnosis: Preop Diagnosis altered mental status with altered mental status with dysphagia Post-op diagnosis: Normal EGD Mild bleeding from NG gastritis Procedure done: Percutaneous endoscopic placement of 20 [place] [employer] Endovive gastrostomy tube using pull technique Pathology: None Surgeon: Tushar Rob Condition: stable Disposition: floor Procedure: The patient was taken to the Operating Room and was placed under monitored anesthesia care after antibiotic had been administered. A bite block was placed and Olympus gastroscope was introduced and advanced up to the stomach and the first portion of the duodenum. There were no abnormalities noted in the esophagus, stomach and duodenum. The site for the planned PEG was confirmed in the left upper quadrant with transillumination using gastroscope noted through the abdominal wall and indentation of the abdominal wall noted on the gastroscope. This site was marked, and total of 5 milliliters of 1% lidocaine was infiltrated. An 11-blade was used to make a stab incision. An introducer needle was passed through the abdominal wall into the gastric lumen and the needle removed and the needle removed and the sheath left behind. A guidewire was passed through the introducer needle into the gastric lumen and grasped with a snare attached to the gastroscope. The gastroscope was withdrawn along with the guidewire, which was attached to the 20-[place] EndoVive PEG tube. The guidewire was then pulled through the abdominal wall along with the PEG through the mouth into the gastric lumen until the inner disc was noted to stand against the gastric wall. The gastroscope was reintroduced to confirm good position. The outer disc was then attached and the two way valve was fixed to the PEG tube. The outer disc was noted to be at 3 centimeters at the skin level. Sterile dressing and abdominal binder was placed. The patient was stable throughout the procedure.
--- NOTE | 2021-05-04 12:22 | ANES.PREANE2 ---
Pre-Anesthetic Assessment Height/Weight: Height 5.97 m Weight 106.957 kg Temp Pulse Resp BP Pulse Ox 97.1 F L 97 20 H 179/80 94 05/04/21 11:40 05/04/21 11:40 05/04/21 11:40 05/04/21 11:40 05/04/21 11:40 Preop Diagnosis: cva Operation Date: 05/04/21 12:00 Proposed Procedures p EGD(Not Applicable) - Tushar Rob MD s PEG Tube Insertion(Not Applicable) - Tushar Rob MD Was Beta Christos taken within 24 hours: Yes Was Clonidine taken within 24 hours: N/A Social No alcohol and No tobacco Exam regular rate & rhythm rhonchi, sedate (noncommunicative) Airway Submandibular: within normal limits Cervical ROM: within normal limits Mallampati: Class II Dentition: chipped Comments: Comments: Very poor dentition, missing several Pulmonary PE CV/HEM Hypertension Metabolic Diabetes Mellitus, Hyperlipidemia and Morbid Obesity Anesthetic Plan ASA status: 3 Anesthesia: MAC Risk of > 500 ml blood loss (7ml/kg in children): No Medications/Allergies Home Medications Medication Instructions Recorded Confirmed Last Taken Type Vitamin D3 1 tab PO DAILY 12/09/20 04/25/21 04/24/21 History allopurinol 300 mg tablet 300 mg PO DAILY 12/09/20 04/25/21 04/25/21 History amlodipine 2.5 mg tablet 2.5 mg PO TID 12/09/20 04/25/21 04/25/21 History ascorbic acid (vitamin C) 100 mg 100 mg PO DAILY 12/09/20 04/25/21 04/24/21 History tablet (Vitamin C) atorvastatin 20 mg tablet 20 mg PO DAILY 12/09/20 04/25/21 04/24/21 History cetirizine 10 mg tablet (Zyrtec) 10 mg PO DAILY PRN 12/09/20 04/25/21 04/10/21 History irbesartan 300 1 tab PO DAILY 12/09/20 04/25/21 04/25/21 History mg-hydrochlorothiazide 12.5 mg tablet levomilnacipran 20 mg capsule,24 20 mg PO DAILY 12/09/20 04/25/21 04/25/21 History hr,extended release (Fetzima) lorazepam 0.5 mg tablet 0.5 - 1 mg PO QID PRN 12/09/20 04/25/21 04/10/21 History metoprolol succinate 100 mg 100 mg PO DAILY 12/09/20 04/25/21 04/25/21 History tablet,extended release 24 hr trazodone 50 mg tablet 50 - 100 mg PO BEDTIME 12/09/20 04/25/21 04/24/21 History zinc 50 mg tablet 50 mg PO DAILY 12/09/20 04/25/21 04/25/21 History cyanocobalamin (vitamin B-12) 1,000 mcg IM Q30D 04/25/21 04/25/21 Unknown History 1,000 mcg/mL injection solution guaifenesin 600 mg tablet, 600 mg PO Q12H PRN 04/25/21 04/25/21 Unknown History extended release 12 hr (Mucinex) levofloxacin 500 mg tablet 500 mg PO BID MDD SEE PHARMACY 04/25/21 04/25/21 04/25/21 History COMMENT tramadol 50 mg tablet 50 mg PO BID PRN 04/25/21 04/25/21 Unknown History Allergies Allergy/AdvReac Type Severity Reaction Status Date / Time Penicillins Allergy ALGY-Swell Verified 04/12/21 11:36 Lip/Tongue/Throat Current Medications Generic Name Dose Route Start Last Admin Trade Name Alfredq PRN Reason Stop Dose Admin Acetaminophen 650 mg 04/26/21 01:21 05/03/21 23:20 Acetaminophen 325 Mg Tablet PO 650 mg Q6H PRN Administration MILD PAIN Albuterol/Ipratropium 3 ml 05/02/21 11:45 05/04/21 10:28 Ipratropium-Albuterol 3 Ml Neb INHALATION 3 ml Q6H.RESPIRATORY QUINCY Administration Allopurinol 300 mg 05/01/21 09:00 05/04/21 10:24 Allopurinol 300 Mg Tablet PO Not Given DAILY QUINCY Budesonide 0.5 mg 04/26/21 20:00 05/04/21 10:27 Budesonide 0.5 Mg/2 Ml Neb INHALATION 0.5 mg BID.RESPIRATORY QUINCY Administration Docusate Sodium 100 mg 04/29/21 09:30 05/04/21 10:25 Docusate Sodium 100 Mg Capsule PO Not Given BID QUINCY Enoxaparin Sodium 110 mg 05/02/21 18:00 05/03/21 18:44 Enoxaparin 120 Mg/0.8 Ml Syringe SUBCUT 110 mg Q12H QUINCY Administration Dextrose 1,000 mls @ 75 mls/hr 05/03/21 13:30 05/04/21 09:10 D5w IV 75 mls/hr .[id number] QUINCY Infusion Sodium Chloride 1,000 mls @ 30 mls/hr 05/04/21 11:45 05/04/21 11:45 Sodium Chloride 0.9% IV 05/05/21 11:44 30 mls/hr .Q24H QUINCY Administration Insulin Detemir 10 unit 04/29/21 10:00 05/03/21 21:29 Insulin Detemir 100 Units/1 Ml SUBCUT 10 unit Q12H QUINCY Administration Insulin Human Lispro 0 unit 04/30/21 12:00 05/04/21 07:14 Insulin Lispro 100 Unit/1 Ml SUBCUT Not Given [facility] Protocol Nystatin 100,000 unit 04/29/21 17:00 05/04/21 10:25 Nystatin 100,000 Unit/Ml Udc 5 Ml PO Not Given QID QUINCY Pantoprazole Sodium 40 mg 04/26/21 09:00 05/04/21 07:42 Pantoprazole 40 Mg Sdv IVP 40 mg DAILY QUINCY Administration Polyethylene Glycol 17 gm 04/29/21 09:30 05/04/21 10:25 Polyethylene Glycol 3350 Pkt 17 Gm PO Not Given BID QUINCY Sodium Bicarbonate 650 mg 05/03/21 18:00 05/04/21 10:25 Sodium Bicarbonate 650 Mg Tablet G-TUBE Not Given BID QUINCY Vitamin D 1,000 unit 04/27/21 09:00 05/04/21 10:24 Cholecalciferol (Vitamin D3) 1,000 Unit Tablet PO Not Given DAILY QUINCY PFSH Anesthesia Medical History (Updated 04/26/21 @ 03:31 by Zachary Mason MD) COVID-19 HLD (hyperlipidemia) HTN (hypertension) Surgical History (Updated 04/15/21 @ 20:33 by David Low MD) No significant past surgical history Social History Alcohol intake: never Data Anesthesia : 05/03/21 10:38 05/04/21 04:52 Short CBC 05/03/21 Range/Units 10:38 WBC 9.0 (4.0-10.0) 10^3/uL Hgb 9.4 L (11.5-15.3) g/dL Hct 29.5 L (37.0-47.0) % MCV 91.0 (81-99) fl Plt Count 128 L (130-400) 10^3/cmm Neut % (Auto) 85.4 % Neut # (Auto) 7.70 (1.8-7.7) 10^3/uL BMP 05/03/21 05/04/21 10:38 04:52 Sodium 148 H 148 H Potassium 4.1 3.9 Chloride 122 H 123 H Carbon Dioxide 14 L 15 L BUN 40 H 34 H Creatinine 0.9 0.8 Glucose 217 H 99 Calcium 9.1 10.3 Urine 05/03/21 Range/Units 12:27 Urine Color Yellow (Yellow) Urine Appearance Clear (CLEAR) Urine pH 5 (5-7) Ur Specific Central 1.025 (1.005-1.030) Urine Protein Neg (Negative) Urine Glucose (UA) Norm (Normal) Urine Ketones Negative (Negative) Urine Nitrate Negative (Negative) Urine Bilirubin Neg (Negative) Ur Leukocyte Esterase Negative (Negative) Urine RBC 0-4 H (0-2) /hpf Urine WBC Rare (0-5) /hpf Microbiology 05/03/21 10:38 Blood Culture - Preliminary Blood NEGATIVE TO DATE 05/03/21 10:44 Blood Culture - Preliminary Blood NEGATIVE TO DATE 04/28/21 19:56 Blood Culture - Final Blood NO GROWTH AFTER 5 DAYS 04/28/21 14:59 Blood Culture - Final Blood NO GROWTH AFTER 5 DAYS Cardiac Studies: Echocardiogram 04/26/21
--- NOTE | 2021-05-04 12:34 | PM.PN ---
Subjective Subjective: Interval history: Doris awakens, and tries to talk some but it is difficult to know what she is saying. Does not appear to have any pain. Medications: Reviewed: Yes Vitals/I&O/Wt Last Vital Signs Temp 97 F L 05/04/21 12:15 Pulse 95 05/04/21 12:15 Resp 32 H 05/04/21 12:15 BP 133/56 05/04/21 12:15 Pulse Ox 99 05/04/21 12:15 05/03/21 05/04/21 05/04/21 22:59 06:59 14:59 Intake Total 100 / 725 100 / 825 920.833 / 920.833 Output Total 500 / 500 250 / 750 150 / 150 Balance -400 / 225 -150 / 75 770.833 / 770.833 Physical Exam Narrative: EXAM NARRATIVE: General exam is weak appearing female, with upper airway congestion, no distress. Obviously confused. Communication is difficult HEENT: NG in place Neck is supple Cardiovascular regular rate and rhythm, no murmur Lungs clear with diminished breath sounds. Abdomen is soft. Bowel sounds noted. Extremities no cyanosis clubbing or edema Urinary Catheter Management: Martin: Cath Placed During This Visit: yes Reason for Continuing Indwelling Catheter: Assist Healing of Perineal & Sacral Wounds- Incontinent Patients Urinary Catheter Date of Insertion: 04/26/21 Urinary Catheter Time of Insertion: 01:50 Data : 05/03/21 10:38 05/04/21 04:52 Micro: Microbiology 05/03/21 10:38 Blood Culture - Preliminary Blood NEGATIVE TO DATE 05/03/21 10:44 Blood Culture - Preliminary Blood NEGATIVE TO DATE 04/28/21 19:56 Blood Culture - Final Blood NO GROWTH AFTER 5 DAYS 04/28/21 14:59 Blood Culture - Final Blood NO GROWTH AFTER 5 DAYS A&P Assessment and plan (1) Pulmonary embolism: Converted to Lovenox. After PEG tube is placed will change back to Eliquis Had saddle pulmonary embolism on admission Echocardiogram did not demonstrate strain. EF was preserved. Lower extremity Doppler negative for DVT Status: Acute Qualifiers: Acute cor pulmonale presence: with acute cor pulmonale Chronicity: acute Pulmonary embolism type: unspecified Qualified Code(s): I26.09 - Other pulmonary embolism with acute cor pulmonale (2) COVID-19: Severe COVID, associated with severe debilitation and weakness. Now on 4L of oxygen per nasal cannula. Secondary to elevated temperature, sudden clinical state changed to Primaxin. Urinalysis, chest x-ray did not demonstrate anything new from previous. Blood culture was also obtained. Has completed remdesivir, dexamethasone Status: Acute (3) HTN (hypertension): Stable Status: Acute (4) HLD (hyperlipidemia): Status: Acute (5) Hyperosmolar hyperglycemic state (HHS): Resolved Secondary to diabetes, sliding scale insulin, Levemir 10 units every 12 hours Status: Acute (6) Acute kidney injury: Resolved Status: Acute (7) AMS (altered mental status): Stagnated currently. Head CT negative for acute abnormality Likely has underlying dementia Status: Acute Plan Dysphagia, weakness. PEG tube scheduled for tomorrow. After placement will initiate feeds and remove NG Rhabdomyolysis, resolved Hypernatremia. Increase D5W slightly. 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
--- NOTE | 2021-05-04 13:00 | ANE.PACU2 ---
Inpatient post-anesthesia follow up: Airway intact: Yes Vital signs: Temperature 97 F Pulse Rate 95 Respiratory Rate 22 Blood Pressure 153/62 Pulse Oximetry 93 Oxygen Delivery Me thod Nasal Cannula Oxygen Flow Rate 4 Fraction of Inspir ed Oxygen 6 Hydration adequate: Yes Nausea and vomiting: No Pain level: 1 Mental status: Baseline
[2021-05-04] MEDS: dextrose 5% 1,000 ML 75 ML IV (13:17)
--- NOTE | 2021-05-04 13:22 | PC.NURSE ---
patient returned from GI Lab. patient has PEG tube placed, NG was removed prior to patient arriving back on unit. patient has abd binder in place. desk monitor placed on patient.
[2021-05-04 14:24] LABS: Glucose Point of Care 120 mg/dL (70-110)
--- NOTE | 2021-05-04 14:54 | PC.NURSE ---
started tub feeding using PEG. Glucerna 10ml/hr with 100ml flush Q4H. per nutritional recommendation
--- NOTE | 2021-05-04 15:30 | PC.NURSE ---
notified pharmacy that patient's Primaxin is on hold in the pyxis. I was told they will look into it.
--- NOTE | 2021-05-04 15:48 | PC.NURSE ---
called pharmacy again about patient's Primaxin being on hold. Charlie said he would schedule med for 1600.
[2021-05-04] MEDS: nystatin 100,000 unit/mL UDC 5 mL 100000 UNIT PO ×2 (16:30→22:27)
[2021-05-04] MEDS: sodium bicarbonate 650 mg Tablet G-TUBE (16:31)
[2021-05-04] MEDS: docusate sodium 100 mg Capsule PO (16:31)
[2021-05-04] MEDS: polyethylene glycol 3350 Pkt 17 gm PO (16:31)
[2021-05-04 17:22] LABS: Glucose Point of Care 111 mg/dL (70-110)
[2021-05-04] MEDS: acetaminophen 325 mg Tablet 650 MG PO (17:43)
[2021-05-04] MEDS: enoxaparin 120 mg/0.8 mL Syringe 110 MG SUBCUT (18:20)
[2021-05-05] VITALS (17 sets, daily range): BP systolic 93–116; BP diastolic 51–70; PULSE 87–118; RESP 16–22; TEMP 36.9–37.7; O2SAT 93–98
[2021-05-05] MEDS: ipratropium-albuterol 3 mL Neb INHALATION ×4 (02:22→20:37)
[2021-05-05] MEDS: dextrose 5% 1,000 ML 75 ML IV ×2 (03:41→17:50)
[2021-05-05 05:28] LABS: Basophils % 0.4 %; Eosinophils % 0.6 %; Hematocrit 25.2 % (37.0-47.0); Hemoglobin 7.6 g/dL (11.5-15.3); Lymphocytes # 0.6 10^3/uL (0.8-4.8); Lymphocytes % 10.5 %; Mean Corpuscular HGB Conc 30.2 g/dL (30.0-36.0); Mean Corpuscular Hemoglobin 29.5 pg (28.0-34.0); Mean Corpuscular Volume 97.7 fl (81-99); Mean Platelet Volume 11.4 fL (7.4-10.4); Monocytes # 0.2 10^3/uL (0.2-0.9); Monocytes % 3.1 %; Neutrophils # 4.43 10^3/uL (1.8-7.7); Neutrophils % 84.4 %; Nucleated Red Blood Cells % 0.8 %; Platelet Count 91 10^3/cmm (130-400); Red Blood Count 2.58 10^6/uL (4.1-5.3); Red Cell Distribution Width 17.6 % (12.1-15.1); White Blood Count 5.2 10^3/uL (4.0-10.0)
[2021-05-05 05:55] LABS: Anion Gap 11.8 (5-19); Blood Urea Nitrogen 28 mg/dL (8-23); Calcium 8.7 mg/dL (8.5-10.5); Carbon Dioxide 17 mmol/L (22-29); Chloride 119 mmol/L (98-107); Glucose 168 mg/dL (65-115); Osmolality Calculated 307 mOsm/kg (285-295); Potassium 3.8 mmol/L (3.5-5.1); Sodium 144 mmol/L (136-145)
[2021-05-05] MEDS: enoxaparin 120 mg/0.8 mL Syringe 110 MG SUBCUT (06:14)
--- NOTE | 2021-05-05 07:26 | PC.NURSE ---
SHIFT SUMMARY Pt tries to talk but speech is garbled/mumbly and cannot understand her. Is congested and has required yankeurs sx to remove secretions. Mouth bleeds and have provided freq oral care with swabs and lanolin to lips. nat & hands with edema and have kept elevated on pillows. Has been repositioned. Has large pressure injury to sacral/buttocks that bleeds. Has been incont of 2 BM's tonight. Placed telfas and ABD's over area and tried to keep turned off bottom. IV infusing without difficulty. Martin intact and draining very dark urine. PEG tube to Left abdomen with tube feeding of Glucerna at 10ml/hr rate. HOB kept elevated. Abd binder in place.
[2021-05-05 07:41] LABS: Glucose Point of Care 150 mg/dL (70-110)
[2021-05-05 07:41] LABS: Glucose Point of Care 188 mg/dL (70-110)
[2021-05-05] MEDS: budesonide 0.5 mg/2 mL Neb INHALATION ×2 (08:05→20:37)
--- NOTE | 2021-05-05 08:26 | PC.NURSE ---
patient has no residual and patient possibly aspirated what looks like formula. Dr Connell notified. Hold tube feedings for now, per Dr Connell.
--- NOTE | 2021-05-05 08:40 | PC.NURSE ---
rcvd order from Dr Connell to give Reglan at scheduled time and start tube feeding one hour after that since patient has no residual.
--- NOTE | 2021-05-05 08:47 | PC.NURSE ---
RT Monalisa asked about possibly putting dye in formula to know if patient is aspirating formula. Deputy County Counsel talked to Dr Connell, Per Dr Connell ok to put dye in formula. sports writer called and spoke with [facility] and he said he will try to find some and bring it to the floor.
--- NOTE | 2021-05-05 11:47 | PC.SOCIAL ---
IMM Updated Pg. 2 of IMM updated and reviewed with patient and family member at bedside. Copy provided.
[2021-05-05] MEDS: cholecalciferol (vitamin D3) 1,000 unit Tablet 1000 UNIT PO (12:53)
[2021-05-05] MEDS: allopurinol 300 mg Tablet PO (12:54)
[2021-05-05] MEDS: docusate sodium 100 mg Capsule PO ×2 (12:54→17:49)
[2021-05-05] MEDS: nystatin 100,000 unit/mL UDC 5 mL 100000 UNIT PO ×3 (12:54→21:45)
[2021-05-05] MEDS: sodium bicarbonate 650 mg Tablet G-TUBE ×2 (12:54→17:48)
[2021-05-05] MEDS: pantoprazole 40 mg SDV IVP (12:55)
[2021-05-05] MEDS: polyethylene glycol 3350 Pkt 17 gm PO ×2 (12:55→17:49)
[2021-05-05] MEDS: metoclopramide oral liquid 5 mg/5 mL (ml) PEG-TUBE ×3 (13:40→21:42)
[2021-05-05] MEDS: insulin lispro 100 unit/1 mL SUBCUT (13:41)
--- NOTE | 2021-05-05 13:54 | PC.NURSE ---
pictures of patient's wound to sacrum and left heel sent to Dr Connell today
--- NOTE | 2021-05-05 14:00 | PC.NURSE ---
Started Tube feeding at 10ml/hr
--- NOTE | 2021-05-05 14:25 | PM.PN ---
Subjective Subjective: Interval history: Doris is lethargic today. She was pretty congested and had to be suctioned. Some of this appeared to be formula. There was no significant residual. Medications: Reviewed: Yes Vitals/I&O/Wt Last Vital Signs Temp 99.5 F 05/05/21 11:45 Pulse 99 05/05/21 11:45 Resp 18 05/05/21 11:45 BP 93/61 05/05/21 11:45 Pulse Ox 96 05/05/21 11:45 05/04/21 05/05/21 05/05/21 22:59 06:59 14:59 Intake Total 100 / 7756.562 5448 / 2400.000 200 / 200 Output Total 200 / 350 350 / 700 250 / 250 Balance -100 / 950.000 750 / 1700.000 -50 / -50 Weight last 48 hrs Weight 106.821 kg Physical Exam Narrative: EXAM NARRATIVE: General exam weak appearing, congested, confused HEENT: NG has been removed Neck is supple Cardiovascular regular rate and rhythm, no murmur Lungs clear with diminished breath sounds. Abdomen is soft. Bowel sounds noted. PEG tube noted Extremities no cyanosis clubbing or edema Urinary Catheter Management: Martin: Cath Placed During This Visit: yes Reason for Continuing Indwelling Catheter: Assist healing open wound Urinary Catheter Date of Insertion: 04/26/21 Urinary Catheter Time of Insertion: 01:50 Data : 05/05/21 04:18 05/05/21 04:18 Micro: Microbiology 05/03/21 12:27 Urine Culture - Preliminary Urine,Voided Yeast species 05/03/21 10:38 Blood Culture - Preliminary Blood NEGATIVE TO DATE 05/03/21 10:44 Blood Culture - Preliminary Blood NEGATIVE TO DATE A&P Assessment and plan (1) Pulmonary embolism: Change Lovenox back to Eliquis Had saddle pulmonary embolism on admission Echocardiogram did not demonstrate strain. EF was preserved. Lower extremity Doppler negative for DVT Status: Acute Qualifiers: Acute cor pulmonale presence: with acute cor pulmonale Chronicity: acute Pulmonary embolism type: unspecified Qualified Code(s): I26.09 - Other pulmonary embolism with acute cor pulmonale (2) COVID-19: Severe COVID, associated with severe debilitation and weakness. Now on 3L of oxygen per nasal cannula. Secondary to elevated temperature, sudden clinical state changed to Primaxin. Urinalysis, chest x-ray did not demonstrate anything new from previous. Blood culture was also obtained. So far this is negative. She has been afebrile the last 24 hours. Has completed remdesivir, dexamethasone Status: Acute (3) HTN (hypertension): Stable Status: Acute (4) HLD (hyperlipidemia): Status: Acute (5) Hyperosmolar hyperglycemic state (HHS): Resolved Secondary to diabetes, sliding scale insulin, Levemir 10 units every 12 hours Status: Acute (6) Acute kidney injury: Resolved Status: Acute (7) AMS (altered mental status): Stagnated currently. Head CT negative for acute abnormality Likely has underlying dementia Status: Acute Plan Dysphagia, weakness. PEG tube placed May 04. Some significant airway congestion this morning. She was suctioned vigorously. Will initiate some Reglan and start tube feeds later today. Monitor for any reflux. Rhabdomyolysis, resolved Hypernatremia. Improved. Anemia. Repeat hemoglobin ordered and pending. 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
[2021-05-05 16:05] LABS: Hematocrit 23.8 % (37.0-47.0); Hemoglobin 7.4 g/dL (11.5-15.3)
--- NOTE | 2021-05-05 16:28 | PC.NURSE ---
Notified Dr Connell, patient was just changed and her stool is black. Do you want me to send a sample to lab for testing? Read 05/05/21, 16:28 Her vitals are 101-65, HR 89, temp 98.5 and O2 92-93% on 3L NC Read 05/05/21, 16:28 And her urine output is 250ml for today Read 05/05/21,
--- NOTE | 2021-05-05 16:37 | PC.NURSE ---
Per Dr Connell, don't need stool sample at this time. order Protonix IV 40mg BID, Hold Lovenox and notified Dr Rob
--- NOTE | 2021-05-05 16:41 | PC.NURSE ---
notified Dr Rob that patient's stool is black. Her vitals are 101-65, HR 89, temp 98.5 and O2 92-93% on 3L NC. and her urine output is 250ml for today. HGB is 7.4.
[2021-05-05 18:29] LABS: Glucose Point of Care 83 mg/dL (70-110)
[2021-05-05 20:58] LABS: Hematocrit 24.5 % (37.0-47.0); Hemoglobin 7.4 g/dL (11.5-15.3)
[2021-05-05] MEDS: morphine 4 mg/mL SDV 1 mL 1 MG IVP (22:15)
[2021-05-05] MEDS: LORazepam 2 mg/mL INJ 1 mL 1 MG IVP (23:03)
--- NOTE | 2021-05-05 23:16 | PC.NURSE ---
PAIN/ANXIETY Pt has appeared to be very uncomfortable this evening. Not able to understand her speech but is grimacing and fretful. Dr was called and was given 1mg of Morphine IV that did not help. Was given Ativan 1mg IV per order and sleeping shortly after med given. Niece has been at bedside and is going home now. Discussed transitioning pt to comfort care and this is probably where family is going. Lisandra says they definitely want her to be as comfortable as possible. Lisandra is going to talk with her brother in the morning and will make final decision regarding comfort care.
[2021-05-06] VITALS (14 sets, daily range): BP systolic 86–139; BP diastolic 48–71; PULSE 58–103; RESP 16–32; TEMP 35.9–37.9; O2SAT 90–98
[2021-05-06] MEDS: lanolin oint 7 gm 1 APPLIC TOPICAL (01:22)
[2021-05-06] MEDS: ipratropium-albuterol 3 mL Neb INHALATION ×2 (03:06→09:37)
[2021-05-06] MEDS: acetaminophen 325 mg Tablet 650 MG PO (04:14)
[2021-05-06 05:36] LABS: Basophils % 0.2 %; Eosinophils # 0.1 10^3/uL (0.0-0.8); Eosinophils % 1.2 %; Hematocrit 23.4 % (37.0-47.0); Hemoglobin 7.1 g/dL (11.5-15.3); Lymphocytes # 0.5 10^3/uL (0.8-4.8); Lymphocytes % 12.1 %; Mean Corpuscular HGB Conc 30.3 g/dL (30.0-36.0); Mean Corpuscular Hemoglobin 29.1 pg (28.0-34.0); Mean Corpuscular Volume 95.9 fl (81-99); Mean Platelet Volume 10.2 fL (7.4-10.4); Monocytes # 0.1 10^3/uL (0.2-0.9); Monocytes % 3.1 %; Neutrophils # 3.46 10^3/uL (1.8-7.7); Neutrophils % 82.2 %; Platelet Count 80 10^3/cmm (130-400); Red Blood Count 2.44 10^6/uL (4.1-5.3); Red Cell Distribution Width 17.6 % (12.1-15.1); White Blood Count 4.2 10^3/uL (4.0-10.0)
[2021-05-06 05:56] LABS: Anion Gap 10.5 (5-19); Blood Urea Nitrogen 23 mg/dL (8-23); Calcium 8.8 mg/dL (8.5-10.5); Carbon Dioxide 19 mmol/L (22-29); Chloride 117 mmol/L (98-107); Glucose 85 mg/dL (65-115); Osmolality Calculated 299 mOsm/kg (285-295); Potassium 3.5 mmol/L (3.5-5.1); Sodium 143 mmol/L (136-145)
[2021-05-06 06:11] LABS: Slide Review Slide Review Perform
[2021-05-06] MEDS: metoclopramide oral liquid 5 mg/5 mL (ml) PEG-TUBE (06:17)
--- NOTE | 2021-05-06 06:30 | PC.NURSE ---
Addendum entered by Olamide Albert LPN 05/06/21 06:40: HOB has been kept at 30-40 degrees Original Note: SHIFT SUMMARY Pt has been repositioned this shift several times. Keeping arms elevated on pillows for edema. Several pillows used for positioning. Was restless, anxious and appeared in pain at start of shift but had good relief with IV Morphine and Ativan given. Best response seemed to be after the Ativan. Has been more awake this morning and smiled at me and was able to understand few words. Has shook her head no toquestioning about pain. O2 in place at 3l per NC. IV infusing at 30ml/hr rate. Sx sescetions with yankeurs several times. Cough is too weak to bring up much. PEG tube with feeding at 10ml/hr rate. Lisandra had requested not to increase it tonight due to the aspiration yesterday. Binder in place. Telfas & ABD pads kept on pressure wound to buttocks/sacral area. Arms edematous with dark bruising. Martin draining very dark main urine. One BM tonight. Lisandra has stayed with most of the night.
[2021-05-06 06:37] LABS: Glucose Point of Care 102 mg/dL (70-110)
[2021-05-06] MEDS: morphine 4 mg/mL SDV 1 mL 1 MG IVP (06:51)
[2021-05-06] MEDS: LORazepam 2 mg/mL INJ 1 mL 1 MG IVP (07:46)
[2021-05-06] MEDS: budesonide 0.5 mg/2 mL Neb INHALATION (09:37)
[2021-05-06] MEDS: allopurinol 300 mg Tablet PO (10:13)
[2021-05-06] MEDS: cholecalciferol (vitamin D3) 1,000 unit Tablet 1000 UNIT PO (10:13)
[2021-05-06] MEDS: pantoprazole 40 mg SDV IVP (10:13)
[2021-05-06] MEDS: nystatin 100,000 unit/mL UDC 5 mL 100000 UNIT PO (10:13)
[2021-05-06] MEDS: sodium bicarbonate 650 mg Tablet G-TUBE (10:13)
[2021-05-06] MEDS: fluconazole premix 200 MG/100 ML PREMIX 100 MG IV (11:06)
--- NOTE | 2021-05-06 11:15 | P.PN_ITS ---
Subjective Subjective: Interval history: Doris opens her eyes when in the room. When I tell her to say hi she can say hi softly. She seems confused. She had blood in her stool yesterday. 1 dose of Lovenox was held. She does not appear to have significant further bleeding. Medications: Reviewed: Yes Vitals/I&O/Wt Last Vital Signs Temp 98.7 F 05/06/21 08:00 Pulse 95 05/06/21 09:47 Resp 20 H 05/06/21 09:47 BP 139/71 05/06/21 08:00 Pulse Ox 92 05/06/21 09:47 05/05/21 05/06/21 05/06/21 22:59 06:59 14:59 Intake Total 1307.5 / 1507.5 410 / 1917.5 100 / 100 Output Total 50 / 500 350 / 850 Balance 1257.5 / 1007.5 60 / 1067.5 100 / 100 Weight last 48 hrs Weight 107.501 kg Weight 106.821 kg Physical Exam Narrative: EXAM NARRATIVE: General exam weak appearing, congested, confused HEENT: NG has been removed Neck is supple Cardiovascular regular rate and rhythm, no murmur Lungs clear with diminished breath sounds. Abdomen is soft. Bowel sounds noted. PEG tube noted Extremities no cyanosis clubbing or edema Urinary Catheter Management: Martin: Cath Placed During This Visit: yes Reason for Continuing Indwelling Catheter: Assist healing open wound Urinary Catheter Date of Insertion: 04/26/21 Urinary Catheter Time of Insertion: 01:50 Data : 05/06/21 04:53 05/06/21 04:53 Micro: Microbiology 05/03/21 12:27 Urine Culture - Preliminary Urine,Voided Yeast species A&P Assessment and plan (1) Pulmonary embolism: Lovenox 40 mg subcu today. If no bleeding consider increasing this tonight secondary to her pulmonary embolism Had saddle pulmonary embolism on admission Echocardiogram did not demonstrate strain. EF was preserved. Lower extremity Doppler negative for DVT Status: Acute Qualifiers: Acute cor pulmonale presence: with acute cor pulmonale Chronicity: acute Pulmonary embolism type: unspecified Qualified Code(s): I26.09 - Other pulmonary embolism with acute cor pulmonale (2) COVID-19: Severe COVID, associated with severe debilitation and weakness. Now on 3L of ox ygen per nasal cannula. Secondary to elevated temperature, sudden clinical state changed to Primaxin. Urinalysis, chest x-ray did not demonstrate anything new from previous. Blood culture was also obtained. So far this is negative. She has been afebrile the last 24 hours. Primaxin continues. Has completed remdesivir, dexamethasone Off isolation Status: Acute (3) HTN (hypertension): Stable Status: Acute (4) HLD (hyperlipidemia): Status: Acute (5) Hyperosmolar hyperglycemic state (HHS): Resolved Secondary to diabetes, sliding scale insulin, Levemir 10 units every 12 hours Status: Acute (6) Acute kidney injury: Resolved Status: Acute (7) AMS (altered mental status): Stagnated currently. Head CT negative for acute abnormality Likely has underlying dementia Status: Acute Plan Dysphagia, weakness. PEG tube placed May 04. Tube feeds restarted yesterday. Will increase today. Rhabdomyolysis, resolved Hypernatremia. Improved. Anemia. With evidence of GI bleed. Protonix IV. Transfuse 1 unit. Monitor for any rebleeding. Thrush, UTI with likely Arabella noted. Fluconazole was started. Anxiety. Ativan added as needed. Allow natural Will need rehabilitation Prognosis guarded. Family is discussing the possibility of comfort measures as well. Attestations Medical Necessity Statement*: Needs continued hospital stay, status post saddle pulmonary embolism and Covid for reinitiation of tube feedings, determining tolerance prior to discharge to nursing facility. Has also had c omplication of GI bleed. 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
[2021-05-06 13:24] LABS: Glucose Point of Care 86 mg/dL (70-110)
[2021-05-06] MEDS: morphine 4 mg/mL SDV 1 mL IVP ×2 (14:35→20:21)
[2021-05-06] MEDS: glycopyrrolate 0.2 mg/mL SDV 2 mL IV (14:53)
--- NOTE | 2021-05-06 20:29 | PC.NURSE ---
i reported high temp 100.0 and high pulse 103 to nurse
[2021-05-07] VITALS: BP 92/60; PULSE 100; RESP 18; TEMP 37.4; O2SAT 91
[2021-05-07 00:53] VITALS: RESP 30
[2021-05-07] MEDS: morphine 4 mg/mL SDV 1 mL IVP ×4 (00:53→12:38)
[2021-05-07 04:00] VITALS: BP 100/64; PULSE 96; TEMP 37.6; O2SAT 90
[2021-05-07 08:00] VITALS: BP 100/65; PULSE 100; RESP 24; TEMP 37.9; O2SAT 86
[2021-05-07 08:29] VITALS: RESP 20
--- NOTE | 2021-05-07 09:23 | P.PN_ITS ---
Subjective Subjective: Interval history: Transition to comfort yesterday. Family believes she is comfortable. Medications: Reviewed: Yes Vitals/I&O/Wt Last Vital Signs Temp 100.2 F H 05/07/21 08:00 Pulse 100 05/07/21 08:00 Resp 20 H 05/07/21 08:29 BP 100/65 05/07/21 08:00 Pulse Ox 86 L 05/07/21 08:00 05/06/21 05/07/21 05/07/21 22:59 06:59 14:59 Intake Total 726 / 826 Output Total 700 / 700 Balance 726 / 826 -700 / 126 Weight last 48 hrs Weight 97.795 kg Weight 107.501 kg Physical Exam Narrative: EXAM NARRATIVE: General exam sleeping, appears comfortable Neck is supple Cardiovascular slight tachycardia, regular Lungs coarse Abdomen is soft, bowel sounds noted Extremities no cyanosis clubbing Urinary Catheter Management: Martin: Cath Placed During This Visit: yes Reason for Continuing Indwelling Catheter: Hospice/Comfort/Palliative Care Urinary Catheter Date of Insertion: 04/26/21 Urinary Catheter Time of Insertion: 01:50 Data : 05/06/21 04:53 05/06/21 04:53 A&P Assessment and plan (1) Pulmonary embolism: Transition to comfort, medication stopped Status: Acute Qualifiers: Acute cor pulmonale presence: with acute cor pulmonale Chronicity: acute Pulmonary embolism type: unspecified Qualified Code(s): I26.09 - Other pulmonary embolism with acute cor pulmonale (2) COVID-19: Transition to comfort Status: Acute (3) HTN (hypertension): Status: Acute (4) HLD (hyperlipidemia): Status: Acute (5) Hyperosmolar hyperglycemic state (HHS): Status: Acute (6) Acute kidney injury: Status: Acute (7) AMS (altered mental status): Never fully recovered Status: Acute Plan Dysphagia, weakness. PEG tube placed May 04. She has transitioned to comfort. Allow natural Family has made the decision to transition to comfort. They report her quality of life is very low, and we discussed that this is not likely to improve rapidly. She would never want a nursing facility placement. She does appear comfortable currently. Attestations Medical Necessity Statement*: Needs continued hospitalization for end-of-life care and comfort. Coding Level of Care Code Acute Emergency Response Technician for Margarita Gottlieb Diagnoses Pulmonary embolism I26.09 Acute cor pulmonale presence: with acute cor pulmonale Chronicity: acute Pulmonary embolism type: unspecified COVID-19 U07.1 HTN (hypertension) I10 HLD (hyperlipidemia) E78.5 Hyperosmolar hyperglycemic state (HHS) E11.00; E11.65 Acute kidney injury N17.9 AMS (altered mental status) R41.82
[2021-05-07] MEDS: LORazepam 2 mg/mL INJ 1 mL IVP (13:10)
[2021-05-07] MEDS: morphine 10 mg/0.5 mL oral liq UD SUBLINGUAL ×3 (13:27→17:25)
--- NOTE | 2021-05-07 13:40 | PC.SOCIAL ---
IMM Not Updated Pg. 2 of IMM Not updated with family as patient is currently on comfort measures.
--- NOTE | 2021-05-10 13:41 | PM.DDS ---
Discharge Providers DDS Date of Admission: 04/26/21 03:08 Date Summary Completed: 05/10/21 Attending Provider at Admission: Zachary Mason Time of : 17:55 Attending Provider at Discharge: Jerman Aburto MD Primary Care Provider: CLEMENTE Urbina Diagnoses Hospital Diagnoses (1) Pulmonary embolism: Qualifiers: Acute cor pulmonale presence: with acute cor pulmonale Chronicity: acute Pulmonary embolism type: unspecified Qualified Code(s): I26.09 - Other pulmonary embolism with acute cor pulmonale (2) COVID-19: (3) HTN (hypertension): (4) HLD (hyperlipidemia): (5) Hyperosmolar hyperglycemic state (HHS): (6) Acute kidney injury: (7) AMS (altered mental status): Reason for Visit Reason for Visit AMS; MULT FALLS Summary Date and Time of Date of : 05/07/21 Time of : 17:55 Summary Summary: Doris is an 80-year-old white female who presented to the hospital on April 25. She had been diagnosed with Covid earlier, April 11. Upon arrival to the emergency department she had significant shortness of breath and confusion. She was found to have a saddle pulmonary embolism with extensive right ventricular strain. She also had hyperosmolar hyperglycemic state and was placed on insulin. There was also concern for possible infection, so IV antibiotics were started. Remdesivir was also given secondary to Covid, but dexamethasone not secondary to pronounced hyperglycemia. CT head demonstrated no acute abnormality. During her hospital course she had improvement of her hyperosmolar state. Head CT was repeated 2 days after admission showing no acute findings. Echocardiogram demonstrated preserved EF. Broad-spectrum antibiotics were given. Mental status did not improve greatly. By May 01 she was still requiring oxygen and still confused. She was not able to swallow on her own. Family request that she be made DNR but wanted to proceed with other cares to try to get skilled placement. A PEG tube was placed on May 04 secondary to failure of mental status to improve and inability to swallow. Following the procedures she likely had some bleeding and anticoagulation was held briefly. Following this while awaiting nursing facility placement no improvement in her mental status occurred, with no ability to swallow, and significant difficulty with mentation. Considering her comorbidities prior to her illness, her age, her progress here, her wishes to never be in a long term family changed directives to comfort measures. She was placed on comfort measures on May 06 and May 07. Final diagnosis is pulmonary emboli, Covid 19 pneumonia Additional Data Advance directives?: No Discharge Plan Discharge Patient Disposition: Condition: Stable Prescriptions: No Action tramadol 50 mg Tablet 50 mg PO BID PRN (Reason: Pain) 0RF cyanocobalamin (vitamin B-12) 1,000 mcg/mL Solution 1,000 mcg IM Q30D 0RF Levaquin 500 mg Tablet 500 mg PO BID MDD SEE PHARMACY COMMENT 0RF Mucinex 600 mg Tablet Extended Release 12hr 600 mg PO Q12H PRN (Reason: Congestion) 0RF atorvastatin 20 mg tablet 20 mg PO DAILY 0RF trazodone 50 mg tablet 50 - 100 mg PO BEDTIME 0RF cetirizine [Zyrtec] 10 mg Tablet 10 mg PO DAILY PRN (Reason: Allergy Symptoms) 0RF metoprolol succinate 100 mg tablet extended release 24 hr 100 mg PO DAILY 0RF amlodipine 2.5 mg tablet 2.5 mg PO TID 0RF lorazepam 0.5 mg tablet 0.5 - 1 mg PO QID PRN (Reason: Anxiety) 0RF irbesartan-hydrochlorothiazide 300-12.5 mg tablet 1 tab PO DAILY 0RF Vitamin C 100 mg Tablet 100 mg PO DAILY 0RF allopurinol 300 mg tablet 300 mg PO DAILY 0RF zinc 50 mg Tablet 50 mg PO DAILY 0RF Fetzima 20 mg capsule,extended release 24 hr 20 mg PO DAILY 0RF Vitamin D3 1 tab PO DAILY 0RF Referrals: [facility] [Outside] Tang,CLEMENTE Jeffrey [Primary Care Provider] - Patient Instructions: GI Discharge Instructions Probable Cause of Probable cause of : Cardiac arrest DS Attestations Time Spent in /Discharge Care*: greater than 30 min Quality - AMI: AMI present?: No Quality - Stroke: CVA present?: No Quality - VTE: VTE present?: Yes Deep Vein Thrombosis/Pulmonary Embolism Present on Admission: Yes Coding Level of Care Code Acute Behavioral Health Care Coordinator for Margarita Fwchato Diagnoses Pulmonary embolism I26.09 Acute cor pulmonale presence: with acute cor pulmonale Chronicity: acute Pulmonary embolism type: unspecified COVID-19 U07.1 HTN (hypertension) I10 HLD (hyperlipidemia) E78.5 Hyperosmolar hyperglycemic state (HHS) E11.00; E11.65 Acute kidney injury N17.9 AMS (altered mental status) R41.82
[2021-05-11 15:43] LABS: Glucose Point of Care 162 mg/dL (70-110)
== END 2021-05-08 05:55 | disposition expired | DRG 177 ==
LOC: ER 21:13 → CSU 21:43 → ER IP 04-26 03:08 → ICU 04-26 15:38 → MEDSURG 04-30 16:07
PROVIDERS: Emergency Medicine; Family Medicine; Internal Medicine; Surgery; Admitting Provider Hospitalist; Emergency Provider Emergency Medicine; PCP Nurse Practitioner Family; Visit Provider Internal Medicine
PROC: 0DJ08ZZ Inspection of Upper Intestinal Tract, Via Natural or Artificial Opening Endoscopic (ICD-10-PCS; CPT 43235; principal; 2021-05-04 12:00)
PROC: 0DH63UZ Insertion of Feeding Device into Stomach, Percutaneous Approach (ICD-10-PCS; CPT 43246; 2021-05-04 12:00)
DX: U07.1 COVID-19 (principal); E11.00 Type 2 diabetes mellitus with hyperosmolarity without nonketotic hyperglycemic-hyperosmolar coma (NKHHC); J12.82 Pneumonia due to coronavirus disease 2019; I26.02 Saddle embolus of pulmonary artery with acute cor pulmonale; I21.A1 Myocardial infarction type 2; J96.01 Acute respiratory failure with hypoxia; N17.9 Acute kidney failure, unspecified; B37.49 Other urogenital candidiasis; B37.0 Candidal stomatitis; K92.2 Gastrointestinal hemorrhage, unspecified; E87.1 Hypo-osmolality and hyponatremia; M62.82 Rhabdomyolysis; R29.6 Repeated falls; E78.5 Hyperlipidemia, unspecified; I10 Essential (primary) hypertension; I25.10 Atherosclerotic heart disease of native coronary artery without angina pectoris; R16.0 Hepatomegaly, not elsewhere classified; F03.90 Unspecified dementia, unspecified severity, without behavioral disturbance, psychotic disturbance, mood disturbance, and anxiety; I51.9 Heart disease, unspecified; F41.9 Anxiety disorder, unspecified; Z51.5 Encounter for palliative care; D64.9 Anemia, unspecified; R13.10 Dysphagia, unspecified; Z66 Do not resuscitate; R00.0 Tachycardia, unspecified; I95.9 Hypotension, unspecified; Z86.73 Personal history of transient ischemic attack (TIA), and cerebral infarction without residual deficits
CPT/HCPCS: 36415; 36416; 36600; 43246; 51702; 70450; 71045; 71275; 80048; 80051; 80053; 81001; 81003; 82009; 82330; 82533; 82550; 82803; 82805; 82962; 83036; 83605; 83735; 83880; 84100; 84145; 84443; 84484; 85014; 85018; 85025; 85610; 85730; 86140; 86403; 86850; 86900; 86920; 87040; 87086; 87106; 87150; 87205; 87641; 92507; 92523; 92526; 92610; 93005; 93306; 93970; 94640; 94664; 96365; 96366; 96372; 96375; 97110; 97163; 97165; 97530; 99291; 99292; C9113; J0743; J1100; J1450; J1630; J1644; J1650; J1815; J1956; J2060; J2270; J3370; J3490; J7030; J7040; J7050; J7626; J7799; Q9967